=== PATIENT | female | born 1940 | race Caucasian/White ===

== ENCOUNTER 2019-06-17 08:18 | Inpatient (IN) | payer OTHER ==
[2019-06-17 09:05] LABS: Absolute Lymphocytes (CBC) 0.8 K/uL (0.7-4.9); Basophils % 0.3 % (0-1.3); Hematocrit 38.8 % (36.0-45.0); Lymphocytes % 7.7 % (15.3-44.8); MPV 9.6 fL (7.6-11.3); Protime INR 0.91; RBC Red Blood Cell Count 4.67 M/uL (3.86-4.86)
[2019-06-17 09:22] LABS: ALT/SGPT 24 U/L (12-78); AST/SGOT 24 U/L (15-37); Albumin 3.4 g/dL (3.4-5.0); Alkaline Phosphatase 105 U/L (45-117); BUN Blood Urea Nitrogen 21 mg/dL (7-18); Bicarbonate 27 mmol/L (21-32); Bilirubin Direct 0.1 mg/dL (0-0.2); Bilirubin Total 0.3 mg/dL (0.2-1.0); Glucose Level 109 mg/dL (74-106); NT PRO-BNP 9475 pg/mL (<450); Protein, Total 7.1 g/dL (6.4-8.2); Sodium Level 138 mmol/L (136-145); Troponin (Emerg Dept Use Only) < 0.02 ng/mL (0.0-0.045)
--- NOTE | 2019-06-17 09:38 | RAD REPORT ---
EXAM DESCRIPTION: RAD - Chest Single View - 06/17/2019 9:32 am CLINICAL HISTORY: DYSPNEA Chest pain. COMPARISON: Chest Pa And Lat (2 Views) dated 10/09/2017 FINDINGS: Portable technique limits examination quality. Mild bilateral pulmonary opacities are present, which may represent interstitial pneumonitis or inter stitial pulmonary edema. The heart is mildly enlarged in size. No displaced fractures.
[2019-06-17] MEDS ORDERED: LORazepam 2 MG/ML VIAL ONE (09:54)
[2019-06-17] MEDS ORDERED: FUROSEMIDE 40 MG/4 ML VIAL ONE (09:59)
[2019-06-17] MEDS ORDERED: ONDANSETRON 4 MG/2 ML VIAL ONE (09:59)
--- NOTE | 2019-06-17 10:23 | ER ---
Nurse's Notes [facility] Name: Shanell Cisse Age: 78 yrs Sex: Female : 1940 Arrival Date: 06/17/2019 Time: 08:19 Bed 6 Private MD: Diagnosis: Dyspnea;Pulmonary edema Presentation: 06/16 08:20 Chief complaint: EMS states: COUGH AND SHORTNESS OF BREATH, PER EMS PT AT HOME WITH bp COVID POSITIVE PATIENT ON HOME QUARANTINE PER PT, SHE LIVES ALONE AND HAS HAD NO CONTACT WITH COVID + PERSONS. Coronavirus screen: Surgical mask placed on patient. Patient moved to private room, placed in contact and droplet isolation with eye protection until further assessment. Patient reports a cough. Patient reports shortness of breath or difficulty breathing. Patient denies measured and/or subjective temperature greater than 100.4F prior to today's visit. Patient denies travel on a cruise ship or to a country the [facility] currently lists as an affected area. Patient denies contact with known and/or suspected case of COVID-19. Ebola Screen: No symptoms or risks identified at this time. Initial Sepsis Screen: Does the patient meet any 2 criteria? No. Patient's initial sepsis screen is negative. Does the patient have a suspected source of infection? No. Patient's initial sepsis screen is negative. Risk Assessment: Do you want to hurt yourself or someone else? Patient reports no desire to harm self or others. Onset of symptoms is unknown. 08:20 Method Of Arrival: EMS: [facility] bp 08:20 Acuity: CHRISTIANO 3 bp 08:20 Care prior to arrival: IV initiated. 20 GA, in the left forearm, Glucose check: 134 bp Oxygen administered. via nasal cannula. Triage Assessment: 08:23 General: Appears in no apparent distress. comfortable, Behavior is cooperative, bp appropriate for age, anxious. Pain: Denies pain. EENT: No deficits noted. Neuro: No deficits noted. Cardiovascular: No deficits noted. Respiratory: Reports shortness of breath cough that is non-productive, Onset: The symptoms/episode began/occurred yesterday, the patient has mild shortness of breath. GI: No signs and/or symptoms were reported involving the gastrointestinal system. : No signs and/or symptoms were reported regarding the genitourinary system. Derm: No deficits noted. Musculoskeletal: No deficits noted. Historical: - Allergies: 08:23 No Known Allergies; bp - Home Meds: 08:23 Toprol XL Oral [Active]; Amitriptyline Oral [Active]; bp - PMHx: 08:23 Hypertension; bp - Immunization history:: Adult Immunizations up to date. - Social history:: Smoking status: unknown. Screenin:24 Abuse screen: Denies threats or abuse. Denies injuries from another. Nutritional bp screening: No deficits noted. Tuberculosis screening: No symptoms or risk factors identified. Fall Risk None identified. Assessment: 08:24 General: SEE TRIAGE NOTE. Cardiovascular: Rhythm is sinus rhythm. Respiratory: Airway bp is patent Respiratory effort is even, labored, Respiratory pattern is symmetrical, Breath sounds are diminished bilaterally. 08:40 Reassessment: Assisted to bedside commode, pt voided. Pt assisted back in bed. . aa5 09:00 Reassessment: Patient is alert, oriented x 3, equal unlabored respirations, skin aa5 warm/dry/pink. Pt notified of wait time for lab results. . 09:26 Reassessment: CXR COMPLETED, U/S PENDING. PT OUT OF BED TO B/S COMMODE. bp 09:40 Reassessment: Pt to bedside commode. . aa5 09:45 Reassessment: Pt sitting at side of bed, c/o increased SOB, respirations are tachypnea, aa5 RR 26. Pt also reports anxiety, SNUBBER notified. . 10:00 Reassessment: Provided verbal reassurance and instructed pt to take deep breaths. Pt aa5 appears more calm after Ativan administration. . 10:05 Reassessment: Pt now calm, resting in bed with eyes closed, respirations even and aa5 unlabored. Side rails x 2, call denise within reach. . 10:55 Reassessment: Patient is alert, oriented x 3, equal unlabored respirations, skin aa5 warm/dry/pink. Pt assisted to bedside commode. . 11:05 Reassessment: Pt assisted back in bed by [employer]. US being completed at bedside. aa5 11:50 Reassessment: Patient is alert, oriented x 3, equal unlabored respirations, skin aa5 warm/dry/pink. Pt assisted with bedside commode, pt voided. . Vital Signs: 08:19 BP 184 / 98; Pulse 80; Resp 20 S; Pulse Ox 93% on R/A; aa5 08:20 Temp 98.1(O); Pulse Ox 100% on 2 lpm NC; Weight 65.32 kg; Height 5 ft. 6 in. (167.64 aa5 cm); 09:25 BP 189 / 106; Pulse 92; Resp 25; Pulse Ox 98% ; bp 10:00 BP 179 / 83; Pulse 80; Resp 16 S; Pulse Ox 96% on 2 lpm NC; aa5 11:30 BP 189 / 102; Pulse 83; Resp 18 S; Temp 98.0(TE); Pulse Ox 98% on 2 lpm NC; aa5 11:55 BP 180 / 99; Pulse 80; Resp 16 S; Pulse Ox 98% on 2 lpm NC; aa5 08:20 Body Mass Index 23.24 (65.32 kg, 167.64 cm) aa5 11:30 SNUBBER notified of increased BP aa5 ED Course: 08:19 Patient arrived in ED. bp 08:22 Triage completed. bp 08:22 Selina Sanchez FNP-C is PHCP. kb 08:22 Arvin Russell MD is Attending Physician. kb 08:23 Arm band placed on. bp 08:24 Patient has correct armband on for positive identification. Bed in low position. Call bp light in reach. Side rails up X2. 08:24 Maintain EMS IV. Dressing intact. Good blood return noted. Site clean \T\ dry. Gauge \T\ bp site: 20 G LEFT FA. 08:25 EKG done, by location and measurement technician. reviewed by Selina LANCASTER. vh 08:26 Anhsul Carter, RN is Primary Nurse. bp 08:43 Initial lab(s) drawn, by ms, sent to lab. Inserted saline lock: 20 gauge in right aa5 wrist, using aseptic technique. Blood collected. 08:49 COVID-19 swab collected and sent to lab. aa5 09:33 XRAY Chest (1 view) In Process Unspecified. EDMS 10:22 Slade Grimes DO is Hospitalizing Provider. kb 11:55 No provider procedures requiring assistance completed. Patient admitted, IV remains in aa5 place. 12:04 Primary Nurse role handed off by Anshul Carter, RN aa5 Administered Medications: 09:50 Drug: Ativan 0.25 mg Route: IVP; Site: right forearm; bp 10:05 Follow up: Response: No adverse reaction; Marked relief of symptoms aa5 09:55 Drug: Lasix 40 mg Route: IVP; Site: right forearm; bp 10:05 Follow up: Response: No adverse reaction aa5 09:55 Drug: Zofran (Ondansetron) 4 mg Route: IVP; Site: right forearm; bp 10:05 Follow up: Response: No adverse reaction aa5 11:45 Drug: Lopressor 5 mg {Note: VO received at 1143.} Route: IVP; Site: right wrist; aa5 12:00 Follow up: Response: No adverse reaction aa5 Outcome: 10:22 Decision to Hospitalize by Provider. kb 11:59 Admitted to Med/surg accompanied by nurse, via wheelchair, with chart, Other Bedside aa5 report given to CLAUDE Salcido 11:59 Condition: stable 11:59 Instructed on the need for admit, Demonstrated understanding of instructions. 12:03 Patient left the ED. aa5 Signatures: Dispatcher [employer] EDMS Selina Sanchez, JANNIE-C CHILD GUIDANCE COUNSELOR-Keyona Johnston, RN RN aa5 Marian Sharpe Brian, RN RN bp Corrections: (The following items were deleted from the chart) 08:31 08:20 BP 184 / 98; Pulse 80bpm; Resp 20bpm; Spontaneous; Pulse Ox 93% RA; aa5 aa5 08:32 08:20 Pulse Ox 100% 4 lpm; Temp 97.9F; 65.32 kg; Height 5 ft. 6 in.; BMI: 23.2; bp aa5 11:08 08:20 Coronavirus screen: Surgical mask placed on patient. Patient moved to private aa5 room, placed in contact and droplet isolation with eye protection until further assessment. Patient reports a cough. Patient reports shortness of breath or difficulty breathing. Patient denies measured and/or subjective temperature greater than 100.4F prior to today's visit. Patient reports contact with known and/or suspected case of COVID-19. bp 11:41 08:20 Chief complaint: EMS states: COUGH AND SHORTNESS OF BREATH, AT HOME WITH COVID bp POSITIVE bp 12:08 12:07 Patient left the ED. aa5 aa5
--- NOTE | 2019-06-17 10:23 | EDPHYS ---
Physician Documentation [facility] Name: Shanell Cisse Age: 78 yrs Sex: Female : 1940 Arrival Date: 06/17/2019 Time: 08:19 Bed 6 Private MD: ED Physician Arvin Russell HPI: 06/16 08:52 This 78 yrs old Female presents to ER via EMS with complaints of Shortness Of kb Breath, Cough. 08:52 The patient has shortness of breath at rest. Onset: The symptoms/episode began/occurred kb last night. Duration: The symptoms are continuous. The patient's shortness of breath is aggravated by nothing, is alleviated by nothing. Associated signs and symptoms: Pertinent positives: non-productive cough, Pertinent negatives: chest pain, fever. Severity of symptoms: At their worst the symptoms were moderate in the emergency department the symptoms have improved mildly. The patient has not experienced similar symptoms in the past. The patient has not recently seen a physician. Pt reports she started having shortness of breath last night, then coughed through most of the night. Denies fever or sick contacts. . Historical: - Allergies: 08:23 No Known Allergies; bp - Home Meds: 08:23 Toprol XL Oral [Active]; Amitriptyline Oral [Active]; bp - PMHx: 08:23 Hypertension; bp - Immunization history:: Adult Immunizations up to date. - Social history:: Smoking status: unknown. ROS: 08:51 Constitutional: Negative for fever, chills, and weight loss, ENT: Negative for injury, kb pain, and discharge, Neck: Negative for injury, pain, and swelling, Cardiovascular: Negative for chest pain, palpitations, and edema, Abdomen/GI: Negative for abdominal pain, nausea, vomiting, diarrhea, and constipation, Back: Negative for injury and pain, MS/Extremity: Negative for injury and deformity, Skin: Negative for injury, rash, and discoloration, Neuro: Negative for headache, weakness, numbness, tingling, and seizure. 08:51 Respiratory: Positive for cough, shortness of breath, Negative for dyspnea on exertion, hemoptysis, orthopnea, pleurisy, sputum production, wheezing. Exam: 08:51 Constitutional: This is a well developed, well nourished patient who is awake, alert, kb and in no acute distress. Head/Face: Normocephalic, atraumatic. ENT: Nares patent. No nasal discharge, no septal abnormalities noted. Tympanic membranes are normal and external auditory canals are clear. Oropharynx with no redness, swelling, or masses, exudates, or evidence of obstruction, uvula midline. Mucous membranes moist. Neck: Trachea midline, no thyromegaly or masses palpated, and no cervical lymphadenopathy. Supple, full range of motion without nuchal rigidity, or vertebral point tenderness. No Meningismus. Chest/axilla: Normal chest wall appearance and motion. Nontender with no deformity. No lesions are appreciated. Respiratory: Lungs have equal breath sounds bilaterally, clear to auscultation and percussion. No rales, rhonchi or wheezes noted. No increased work of breathing, no retractions or nasal flaring. Abdomen/GI: Soft, non-tender, with normal bowel sounds. No distension or tympany. No guarding or rebound. No evidence of tenderness throughout. Back: No spinal tenderness. No costovertebral tenderness. Full range of motion. Skin: Warm, dry with normal turgor. Normal color with no rashes, no lesions, and no evidence of cellulitis. MS/ Extremity: Pulses equal, no cyanosis. Neurovascular intact. Full, normal range of motion. Neuro: Awake and alert, GCS 15, oriented to person, place, time, and situation. Cranial nerves II-XII grossly intact. Motor strength 5/5 in all extremities. Sensory grossly intact. Cerebellar exam normal. Normal gait. 08:51 Cardiovascular: Rate: normal, Rhythm: regular, Pulses: no pulse deficits are appreciated, Edema: pedal edema, that is mild. Vital Signs: 08:19 BP 184 / 98; Pulse 80; Resp 20 S; Pulse Ox 93% on R/A; aa5 08:20 Temp 98.1(O); Pulse Ox 100% on 2 lpm NC; Weight 65.32 kg; Height 5 ft. 6 in. (167.64 aa5 cm); 09:25 BP 189 / 106; Pulse 92; Resp 25; Pulse Ox 98% ; bp 10:00 BP 179 / 83; Pulse 80; Resp 16 S; Pulse Ox 96% on 2 lpm NC; aa5 11:30 BP 189 / 102; Pulse 83; Resp 18 S; Temp 98.0(TE); Pulse Ox 98% on 2 lpm NC; aa5 11:55 BP 180 / 99; Pulse 80; Resp 16 S; Pulse Ox 98% on 2 lpm NC; aa5 08:20 Body Mass Index 23.24 (65.32 kg, 167.64 cm) aa5 11:30 UPHOLSTERER INSIDE notified of increased BP aa5 MDM: 08:22 Patient medically screened. kb 08:51 Data reviewed: vital signs, nurses notes. Data interpreted: Pulse oximetry: on room air kb is 100 %. Interpretation: normal. 10:21 Counseling: I had a detailed discussion with the patient and/or guardian regarding: the kb historical points, exam findings, and any diagnostic results supporting the discharge/admit diagnosis, lab results, radiology results, the need for further work-up and treatment in the hospital. Physician consultation: Slade Grimes DO was contacted at 10:21, regarding admission, to the telemetry unit. patient's condition, and will see patient in ED, shortly. 06/16 08:32 Order name: Basic Metabolic Panel; Complete Time: 09:25 kb 06/16 08:32 Order name: CBC with Diff; Complete Time: 10:29 kb 06/16 08:32 Order name: LFT's; Complete Time: 09:25 kb 06/16 08:32 Order name: Magnesium; Complete Time: 09:25 kb 06/16 08:32 Order name: NT PRO-BNP; Complete Time: 09:25 kb 06/16 08:32 Order name: PT-INR; Complete Time: 09:14 kb 06/16 08:32 Order name: Troponin (emerg Dept Use Only); Complete Time: 09:25 kb 06/16 08:32 Order name: XRAY Chest (1 view); Complete Time: 09:40 kb 06/16 08:32 Order name: COVID-19; Complete Time: 10:31 kb 06/16 08:32 Order name: US Extremity Venous W Compression Kevon kb 06/16 09:41 Order name: Echo w/ Doppler kb 06/16 10:25 Order name: CBC Smear Scan; Complete Time: 10:29 EDMS 06/16 08:32 Order name: EKG; Complete Time: 08:33 kb 06/16 08:32 Order name: Cardiac monitoring; Complete Time: 08:36 kb 06/16 08:32 Order name: EKG - Nurse/Tech; Complete Time: 08:36 kb 06/16 08:32 Order name: IV Saline Lock; Complete Time: 08:37 kb 06/16 08:32 Order name: Labs collected and sent; Complete Time: 09:04 kb 06/16 08:32 Order name: O2 Per Protocol; Complete Time: 08:37 kb 06/16 08:32 Order name: O2 Sat Monitoring; Complete Time: 08:37 kb Administered Medications: 09:50 Drug: Ativan 0.25 mg Route: IVP; Site: right forearm; bp 10:05 Follow up: Response: No adverse reaction; Marked relief of symptoms aa5 09:55 Drug: Lasix 40 mg Route: IVP; Site: right forearm; bp 10:05 Follow up: Response: No adverse reaction aa5 09:55 Drug: Zofran (Ondansetron) 4 mg Route: IVP; Site: right forearm; bp 10:05 Follow up: Response: No adverse reaction aa5 11:45 Drug: Lopressor 5 mg {Note: VO received at 1143.} Route: IVP; Site: right wrist; aa5 12:00 Follow up: Response: No adverse reaction aa5 Disposition: 14:45 Co-signature as Attending Physician, Arvin Russell MD I agree with the assessment and kdr plan of care. Disposition: 06/17/19 10:22 Hospitalization ordered by Slade Grimes for Observation. Preliminary diagnosis are Dyspnea, Pulmonary edema. - Bed requested for Telemetry/MedSurg (observation). - Status is Observation. aa5 - Condition is Stable. - Problem is new. - Symptoms are unchanged. Signatures: Dispatcher [employer] EDMO Selina Sanchez, AIRPORT TOWER CONTROLLER-C AIRPORT TOWER CONTROLLER-Shelly Balderrama, RN Arvin Rosa MD MD [facility] Keyona Hughes RN RN aa Anshul Carter RN RN bp Corrections: (The following items were deleted from the chart) 10:22 10:22 Hospitalization Ordered by Slade Grimes DO for Observation. Preliminary kb diagnosis is New onset congestive heart failure; Dyspnea. Bed requested for Telemetry/MedSurg (observation). Status is Observation. Condition is Stable. Problem is new. Symptoms are unchanged. kb 11:29 10:22 06/17/2019 10:22 Hospitalization Ordered by Slade Grimes DO for Observation. dw Preliminary diagnosis is Dyspnea; Pulmonary edema. Bed requested for Telemetry/MedSurg (observation). Status is Observation. Condition is Stable. Problem is new. Symptoms are unchanged. kb 12:03 11:29 06/17/2019 10:22 Hospitalization Ordered by Slade Grimes DO for Observation. aa5 Preliminary diagnosis is Dyspnea; Pulmonary edema. Bed requested for Telemetry/MedSurg (observation). Status is Observation. Condition is Stable. Problem is new. Symptoms are unchanged. dw 12:07 12:03 06/17/2019 10:22 Hospitalization Ordered by Slade Grimes DO for Observation. aa5 Preliminary diagnosis is Dyspnea; Pulmonary edema. Bed requested for Telemetry/MedSurg (observation). Status is Observation. Condition is Stable. Problem is new. Symptoms are unchanged. aa5
[2019-06-17 10:25] LABS: Platelet Estimate ADEQ; Urine White Blood Cell Casts OK
[2019-06-17 10:26] LABS: Blood Morphology Comment NOT SEEN (NOT SEEN)
[2019-06-17] MEDS ORDERED: METOPROLOL TARTRATE 5 MG/5 ML INJ IV ONE (11:47)
[2019-06-17] MEDS ORDERED: AMITRIPTYLINE 10 MG TAB PO PRN (12:18)
--- NOTE | 2019-06-17 12:18 | RAD REPORT ---
EXAM DESCRIPTION: US - Extrem Venous W Compress Kevon - 06/17/2019 12:08 pm CLINICAL HISTORY: SWELLING Bilateral leg edema and swelling. COMPARISON: No comparisons TECHNIQUE: Real-time sonographic interrogation of the left and right lower extremity deep venous sys tems was performed. FINDINGS: Normal compressibility, flow augmentation, phasic flow and spontaneous flow is identified in both the left and right lower extremity deep venous systems. IMPRESSION: No sonographic evidence of left or right lower extremity deep venous thrombosis.
[2019-06-17] MEDS: ACETAMINOPHEN 500 MG TAB PO PRN (12:51)
[2019-06-17] MEDS: HYDRALAZINE HCL 20 MG/ML VIAL IV PRN ×2 (12:52→18:40)
--- NOTE | 2019-06-17 13:18 | P.HP ---
Certification for Inpatient Patient admitted to: Observation With expected LOS: <2 Midnights Patient will require the following post-hospital care: None Practitioner: I am a practitioner with admitting privileges, knowledge of patient current condition, hospital course, and medical plan of care. Services: Services provided to patient in accordance with Admission requirements found in Title 42 Section 412.3 of the Code of Federal Regulations Patient History Date of Service: 06/17/19 Primary Care Provider: Dr. Lua Reason for admission: Shortness of breath History of Present Illness: 78-year-old female with history of hypertension presented to the emergency room with shortness of breath. Patient has reported increasing shortness of breath over several days. She also reported some edema to. She denies any fever, chills, cough, or congestion. No sick contacts noted. Patient screen for COVID, negative. Patient came to the ER for further evaluation. In the ER patient was slightly hypertensive. Edema to the lower extremities were noted. Room-air saturations within normal range. White count 10.2, hemoglo bin 12.3. Platelet count 203. Sodium stable. BUN of 21, creatinine 1.06 with a GFR 50. Glucose 109. Chest x-ray showed pulmonary edema. Venous Doppler lower extremities were negative. Patient given IV Lasix. Patient admitted for further evaluation and observation. When I saw the patient ER, she appeared stable. Patient denies history of CHF. Allergies No Known Allergies Allergy (Unverified 06/17/19 12:17) Home medications list reviewed: Yes - Past Medical/Surgical History Diabetic: No -: Hypertension Past Surgical History: Reviewed- Non-Contributory Psychosocial/ Personal History: Patient lives at home - Family History Family History: Reviewed- Non-Contributory - Social History Smoking Status: Never smoker Alcohol use: No CD- Drugs: No Caffeine use: No Place of Residence: Home Review of Systems General: As per HPI Eyes: Unremarkable Respiratory: Shortness of Breath, As per HPI Cardiovascular: Edema, As per HPI Gastrointestinal: Unremarkable Genitourinary: Unremarkable Musculoskeletal: Pedal edema, As per HPI Integumentary: Unremarkable Neurological: Unremarkable Lymphatics: Unremarkable Physical Examination - Vital Signs Temperature: 97.6 F Blood Pressure: 198/104 Pulse: 75 Respirations: 20 - Physical Exam General: Alert, In no apparent distress, Oriented x3, Cooperative HEENT: Atraumatic, Normocephalic, Mucous membr. moist/pink Neck: Supple Respiratory: Crackles/rales (Crackles to the bases) Cardiovascular: Normal pulses, Regular rate/rhythm Gastrointestinal: Normal bowel sounds, Soft and benign, Non-distended, No tenderness, No masses, No rebound, No guarding Musculoskeletal: No tenderness, No warmth Integumentary: Tenderness/swelling (1+ pitting edema to the lower extremities bilateral) Neurological: Normal speech, Normal strength at 5/5 x4 extr, Normal tone, Normal affect - Studies Laboratory Data (last 24 hrs) 06/17/19 08:49: PT 10.8, INR 0.91 06/17/19 08:49: WBC 10.2, Hgb 12.3, Hct 38.8, Plt Count 203 06/17/19 08:49: Sodium 138, Potassium 4.0, BUN 21 H, Creatinine 1.06, Glucose 109 H, Magnesium 2.0, Total Bilirubin 0.3, AST 24, ALT 24, Alkaline Phosphatase 105 Microbiology Data (last 24 hrs): 06/17/19 08:53 Nasopharnyx Coronavirus COVID-19 PCR - Final Assessment and Plan - Plan Impression: Shortness of breath with edema to the lower extremity suspect acute on chronic systolic CHF Hypertension Plan: Shortness of breath with edema to the lower extremity suspect acute on chronic systolic CHF: Patient will be admitted for further evaluation and observation. Will continue telemetry. Will monitor cardiac enzymes. Will obtain echocardiogram to evaluate for CHF. Will continue with 1500 cc per day fluid restriction and low-salt diet. Will consult cardiology for further recommendation. Will continue with IV Lasix and diuresis. DVT prophylaxis in place. Will check tsh, BMP and fasting lipid panel in the morning. Will continue to reassess. Will wean off oxygen. Anticipate improvement over the next 24 hr. Will make further adjustments in medication. Hypertension: Will start medication. Will verify home medication. Further adjustment may be required. Discharge Plan: Home Plan to discharge in: 24 Hours - Advance Directives Does patient have a Living Will: No Does patient have a Durable POA for Healthcare: No - Code Status/Comfort Care Code Status Assessed: Yes (Patient is full code) Time Spent Managing Pts Care (In Minutes): 55
[2019-06-17] MEDS ORDERED: METOPROLOL TARTRATE 5 MG/5 ML INJ IV STA (13:28)
[2019-06-17] MEDS ORDERED: HYDROCODONE/APAP 7.5/325 MG TAB PO PRN (13:33)
[2019-06-17] MEDS ORDERED: TRAMADOL HCL 50 MG TAB PO PRN (13:33)
[2019-06-17] MEDS: ONDANSETRON 4 MG/2 ML VIAL IV PRN (14:20)
--- NOTE | 2019-06-17 15:01 | RAD REPORT ---
EXAM DESCRIPTION: CT - Head Brain Wo Cont - 06/17/2019 2:44 pm CLINICAL HISTORY: Headache COMPARISON: None TECHNIQUE: Computed axial tomography of the head was obtained. IV contrast was not requested. All CT scans are performed using dose optimization technique as appropriate and may include automated exposure control or mA/KV adjustment according to patient size. FINDINGS: A 3.8 centimeter area of abnormal density is present within the left occipital lobe. It co ntains low and intermediate density areas. An intracranial bleed is not seen . The ventricles are normal in caliber. No extra-axial fluid collection is noted. Moderate low-density areas within periventricular, deep and subcortical white matter likely represent ischemic changes secondary to small vessel disease. Fluid within the sinuses/ mastoids is not seen. IMPRESSION: 3.8 centimeter area of abnormal density within at the left occipital lobe. This may repr esent a mass or atypical appearing infarction. MRI brain with contrast is recommended
[2019-06-17] MEDS ORDERED: LORazepam 2 MG/ML VIAL IV PRN (16:12)
[2019-06-17] MEDS ORDERED: LORazepam 2 MG/ML VIAL IV STA (16:15)
[2019-06-17] MEDS ORDERED: FUROSEMIDE 20 MG/ 2ML VIAL IV SCH (17:00)
[2019-06-17] MEDS: METOPROLOL TAR 50 MG TAB PO SCH (17:53)
[2019-06-17] MEDS ORDERED: METOPROLOL TAR 25 MG TAB PO SCH (18:00)
--- NOTE | 2019-06-17 18:02 | RAD REPORT ---
EXAM DESCRIPTION: MRI - Brain W/Wo Cont - 06/17/2019 5:11 pm CLINICAL HISTORY: cva COMPARISON: June 17, [address] TECHNIQUE: Axial, sagittal, and coronal magnetic images of the brain were obtained. 15 cc MultiHance administered intravenously FINDINGS: 4.5 centimeter area of abnormal signal is present within the left occipital lobe. It conta ins areas of low and high signal on T2 weighted sequences. It has low to intermediate signal on T1 we ighted sequences. Diffusion weighted sequences demonstrate areas of low and high signal. ADC mapping demonstrates mostly low signal. Mild serpiginous enhancement is noted. Symmetric increased signal is present within the thalami bilaterally. Increased signal is present wit hin basal ganglia bilaterally. Increased signal is present within the brainstem. Moderate signal within periventricular, deep and subcortical white matter The ventricles are normal caliber. No extra-axial fluid collection Fluid within the sinuses/mastoids is not seen IMPRESSION: 4.5 centimeter area of abnormal signal within the left occipital lobe may represent a co mbination of acute and subacute infarction with a small amount of late subacute blood. If the patient is Covid positive another consideration given the increased signal within the brainste m,thalami,, and basal ganglia is that this represents acute necrotizing encephalopathy
--- NOTE | 2019-06-17 18:31 | EKG ---
Test Date: 2019-06-17 Test Time: 08:22:49 Inside Steward/Stewardess: PAULINE MEASUREMENT RESULTS: Intervals: Rate: 80 TN: 176 QRSD: 116 QT: 428 QTc: 493 [place]: P: -7 TN: 176 QRS: 42 T: 193 INTERPRETIVE STATEMENTS: Normal sinus rhythm Left ventricular hypertrophy with QRS widening and repolarization abnormality Prolonged QT Abnormal ECG No previous ECG available for comparison Electronically Signed On 06-17-19 18:31:03 CDT by Blayne Hammer
[2019-06-17] MEDS: PROMETHAZINE INJ 25 MG/ML AMP IV PRN (18:40)
[2019-06-17 18:55] LABS: Urine Appearance CLEAR; Urine Bilirubin NEGATIVE (NEG); Urine Blood NEGATIVE (NEG); Urine Color YELLOW; Urine Glucose NEGATIVE (NEG); Urine Protein NEGATIVE (NEG); Urine Urobilinogen 0.2 mg/dL (0.2-1.0); Urine pH 7.5 (5.0-7.0)
[2019-06-17] MEDS: FAMOTIDINE 20 MG TAB PO SCH (19:56)
[2019-06-17] MEDS: ATORVASTATIN 40 MG TAB PO SCH (19:56)
[2019-06-17 19:57] LABS: Urine Bacteria 20-50 /HPF (<20); Urine Culture Reflex Order REFLEXED; Urine Microscopic Reflex ORDER UMIC; Urine Mucus 1+ /HPF (NONE SEEN); Urine RBC <5 /HPF (NONE SEEN)
[2019-06-17] MEDS: ENOXAPARIN 40 MG/0.4 ML SQ SCH (20:33)
[2019-06-17] MEDS ORDERED: levETIRAcetam 500 MG in NA CHLORIDE 0.9% 100 ML IV SCH (21:00)
[2019-06-18] MEDS: PROMETHAZINE INJ 25 MG/ML AMP IV PRN ×2 (00:32→04:23)
[2019-06-18 04:52] LABS: Absolute Lymphocytes (CBC) 0.8 K/uL (0.7-4.9); Basophils % 0.2 % (0-1.3); Hematocrit 41.7 % (36.0-45.0); MPV 10.1 fL (7.6-11.3)
[2019-06-18] MEDS: HYDRALAZINE HCL 20 MG/ML VIAL IV PRN (05:02)
[2019-06-18 05:37] LABS: BUN Blood Urea Nitrogen 18 mg/dL (7-18); Bicarbonate 32 mmol/L (21-32); Creatine Phosphokinase 70 U/L (26-192); Glucose Level 118 mg/dL (74-106); HDL Cholesterol 83 mg/dL (40-60); LDL Cholesterol, Calculated 141 (<130); Potassium 3.6 mmol/L (3.5-5.1); Sodium Level 136 mmol/L (136-145); Thyroid Stimulating Hormone 0.142 uIU/mL (0.360-3.740); Troponin I < 0.02 ng/mL (0.0-0.045)
[2019-06-18] MEDS: ONDANSETRON 4 MG/2 ML VIAL IV PRN (07:20)
[2019-06-18] MEDS: METOPROLOL TAR 50 MG TAB PO SCH ×2 (07:20→17:41)
--- NOTE | 2019-06-18 08:18 | P.PN ---
Subjective Date of Service: 06/18/19 Primary Care Provider: Dr. Lua Chief Complaint: Shortness of breath Subjective: Improving (still with some nausea) Physical Examination - Vital Signs Temperature: 98.2 F Blood Pressure: 174/90 Pulse: 82 Respirations: 18 Pulse Ox (%): 94 - Physical Exam General: Alert, In no apparent distress, Oriented x3, Cooperative HEENT: Atraumatic Neck: Supple Respiratory: Clear to auscultation bilaterally, Normal air movement Cardiovascular: Normal pulses, Regular rate/rhythm Gastrointestinal: Normal bowel sounds, Soft and benign, Non-distended, No tenderness, No masses, No rebound, No guarding Musculoskeletal: No erythema, No tenderness, No warmth Integumentary: No erythema, No warmth, No cyanosis Neurological: Normal speech, Normal strength at 5/5 x4 extr, Normal tone, Normal affect - Studies Laboratory Data (last 24 hrs) 06/17/19 08:49: PT 10.8, INR 0.91 06/17/19 08:49: WBC 10.2, Hgb 12.3, Hct 38.8, Plt Count 203 06/17/19 08:49: Sodium 138, Potassium 4.0, BUN 21 H, Creatinine 1.06, Glucose 109 H, Magnesium 2.0, Total Bilirubin 0.3, AST 24, ALT 24, Alkaline Phosphatase 105 Microbiology Data (last 24 hrs): 06/17/19 08:53 Nasopharnyx Coronavirus COVID-19 PCR - Final Medications List Reviewed: Yes Assessment & Plan Discharge Plan: Other (inpatient rehab) Plan to discharge in: 48 Hours Physician Review Additional Text: Impression: Shortness of breath with edema to the lower extremity suspect acute on chronic systolic CHF Nausea, dizziness, headache secondary to 4.5 cm abnormal signal within the left occipital lobe likely a combination of acute/subacute infarction with small amount of late subacute bleed Paroxysmally atrial fibrillation Hypertension Hyperlipidemia Abnormal tsh with possible hyperthyroidism Suspect chronic renal disease Plan: Shortness of breath with edema to the lower extremity suspect acute on chronic systolic CHF: Case discussed with cardiology. Await echocardiogram. Will hold Lasix at this time. Will continue 1500 cc per day fluid restriction. Patient also with acute/subacute infarct and late subacute bleed. Case discussed at length with cardiology and Neurology yesterday. Will have physical therapy/occupational therapy evaluate. Patient would benefit with inpatient rehab. Will pursue. Will continue to monitor and address. Patient on aspirin, DVT prophylaxis-Lovenox, Lipitor, and beta-audra for blood pressure control. Will slowly adjust blood pressure medication. Nausea, dizziness, headache secondary to 4.5 cm abnormal signal within the left occipital lobe likely a combination of acute/subacute infarction with small amount of late subacute bleed: Case discussed with Neurology and Cardiology. Will continue with aspirin, DVT prophylaxis-Lovenox, Lipitor and blood pressure control. This may be related to paroxysmally atrial fibrillation. Patient may require chronic anti coagulation therapy in the future. Will discuss further with Neurology. May require repeat CT scan in the future be for chronic anti coagulation therapy is considered. Paroxysmally atrial fibrillation: Continue with rate control [id number]. No chronic anti coagulation therapy at this time due to above. Will discuss further with Neurology. Hypertension: Continue with blood pressure control. Will slowly adjust medication. Hyperlipidemia: Now on Lipitor. Abnormal tsh with possible hyperthyroidism: May need to recheck lab in 2-4 weeks to confirm. If abnormal patient will need thyroid scan and endocrine evaluation as an outpatient. Suspect chronic renal disease: Will check renal ultrasound. Will need to adjust medications. Time Spent Managing Pts Care (In Minutes): 55
[2019-06-18] MEDS: ACETAMINOPHEN 500 MG TAB PO PRN ×2 (08:19→17:51)
[2019-06-18] MEDS: FOLIC ACID 1 MG TABLET PO SCH (08:20)
[2019-06-18] MEDS: ASPIRIN EC 81 MG TAB PO SCH (08:20)
[2019-06-18] MEDS: levETIRAcetam 500 MG TAB PO SCH ×2 (08:23→20:29)
[2019-06-18] MEDS: FAMOTIDINE 20 MG TAB PO SCH ×2 (08:23→20:29)
[2019-06-18] MEDS ORDERED: ENOXAPARIN 40 MG/0.4 ML SQ SCH (09:00)
--- NOTE | 2019-06-18 10:01 | CON ---
Date of Consultation: 06/18/[address] Grimes on 06/17/2019. I saw the patient on 06/18/2019. Reason For Consultation: Atrial fibrillation and CVA. History Of Present Illness: Ms. Cisse is a 78-year-old white woman. She has a history of hypertens ion. She was seen by Dr. Vernon in August 2018 for palpitations and dizziness. Echocardiogram and a 2 4-hour Holter was ordered, but she has not followed through. She comes into the hospital with multip le complaints including cough, hypertension, shortness of breath, was found to have a large stroke in the left occipital area by CT scan and MRI with acute and subacute possible hemorrhage. She has had intermittent atrial fibrillation since she has been in the hospital. She is now on aspirin, Lipitor , and Lovenox. Neurology is following her. She never had any chest pain or syncope. She denied any fever or chills. Has had some cough. Past Medical History: As stated above. Allergies: NONE. Review of Systems: Negative. Social History: Negative. Family History: Negative. Medications: At home include Elavil, metoprolol 100 b.i.d., Singulair, Myrbetriq, and candesartan wi th hydrochlorothiazide. Physical Examination: VITAL SIGNS: Her blood pressure is 174/90. HEENT: Negative. Neck: Supple without any bruit, lymphadenopathy, JVD, or thyromegaly. Chest: Clear to auscultation and percussion CARDIOVASCULAR: She was in a sinus rhythm when I saw her. Cardiac exam revealed a regular rhythm and rate. No murmurs, gallops, or rubs. Abdomen: Benign. Extremities: Revealed no clubbing, cyanosis, or edema. Diagnostic Data: Her BNP was 9475. EKG was normal. Venous Doppler was normal. MRI and CT of her he ad were listed earlier. Impression And Plan: Acute on subacute cerebrovascular accident, most likely secondary to atrial fib rillation. There is some evidence of possible hemorrhage. I think for now, we should hold oral anti coagulation. I think aspirin, Lovenox, and Lipitor are indicated for sure. She had an echocardiogra m and an EEG pending. Neurology has been consulted. We will decide on anticoagulation further down the road. It would be reasonable to do a carotid Doppler as well. Her blood pressure is poorly cont rolled with her atrial fibrillation, I think doubling her metoprolol dose is reasonable. Continue ca ndesartan with hydrochlorothiazide. So far, her atrial fibrillation has been paroxysmal and we will deal with that later. RAQUEL/ROCHELLE Voice ID: [id number] Report ID: [id number]
--- NOTE | 2019-06-18 11:00 | RAD REPORT ---
EXAM DESCRIPTION: RAD - Chest Pa And Lat (2 Views) - 06/18/2019 7:08 am CLINICAL HISTORY: Follow up CHF Chest pain. COMPARISON: Chest Single View dated 06/17/2019; Chest Pa And Lat (2 Views) dated 10/09/2017 FINDINGS: Mild improvement in pulmonary edema is seen. Small bilateral pleural effusions persist. Th e heart is upper limit normal in size. No displaced fractures. IMPRESSION: Mild improvement in lung aeration since comparative study.
--- NOTE | 2019-06-18 11:09 | RAD REPORT ---
EXAM DESCRIPTION: US - Renal Ultrasound-Complete - 06/18/2019 9:05 am CLINICAL HISTORY: Evaluate for chronic renal disease Flank pain COMPARISON: No comparisons FINDINGS: Both kidneys are mildly echogenic. The left kidney appears mildly atrophic relative to the right. The right kidney measures 9.6 x 5.0 x 3.9 cm. No hydronephrosis, focal mass or perinephric fluid. The left kidney measures 7.1 x 3.9 x 3.9 cm.. No hydronephrosis, focal mass or perinephric fluid. The urinary bladder is incompletely distended without gross abnormality seen. IMPRESSION: Mildly echogenic kidneys bilaterally compatible with medical renal disease.
--- NOTE | 2019-06-18 15:33 | EEG ---
CHART: [id number] TEST ID#: [id number] DATE OF STUDY: 06/18/2019 THE EEG WAS RECORDED PORTABLE IN THE PATIENT'S ROOM ON A 17 CHANNEL MACHINE. ELECTRODES WERE APPLIED IN THE USUAL MANNER USING THE INTERNATIONAL 10-20 SYSTEM. THE WAKING BACKGROUND RHYTHM IN THIS RECORD CONSISTS OF FAIRLY WELL DEVELOPED AND FAIRLY WELL ORGANIZED WAVES OF 8.5 HZ., EXPRESSED ON THE RIGHT AND POORLY EXPRESSED ON THE LEFT WHICH ATTENUATE NORMALLY WITH EYE OPENING. THE ACTIVITY IN THE LEFT HEMISPHERE IS DEPRESSED COMPARED TO HOMALOGOUS REGIONS IN THE RIGHT. LOW-VOLTAGE 18-22 HZ ACTIVITY IS EXPRESSED IN THE FRONTAL REGIONS. NO EPILEPTIFORM ACTIVITY APPEARS. SLEEP OCCURRED NATURALLY. IN ADDITION NORMAL SLEEP PATTERNS ARE PRESENT. HYPERVENTILATION WAS NOT PERFORMED. PHOTIC STIMULATION PRODUCED POOR DRIVING BILATERALLY. IMPRESSION: THIS IS A MODERATELY ABNORMAL EEG DUE TO DEPRESSED AMPLITUDE AND FREQUENCIES IN THE LEFT VERSUS THE RIGHT POSTERIOR REGIONS. THIS FINDING IS CONSISTENT WITH A DESTRUCTIVE LESION IN THE LEFT POSTERIOR HEMISPHERE. NO EPILEPTIFORM ACTIVITY WAS RECORDED.
--- NOTE | 2019-06-18 17:33 | EKG ---
Test Date: 2019-06-17 Test Time: 14:25:39 Supplier Development Manager: PAULINE MEASUREMENT RESULTS: Intervals: Rate: 78 [place]: 178 QRSD: 114 QT: 468 QTc: 533 [place]: P: 52 OH: 178 QRS: 12 T: 260 INTERPRETIVE STATEMENTS: Normal sinus rhythm with sinus arrhythmia Incomplete left bundle branch block Left ventricular hypertrophy with repolarization abnormality Prolonged QT Abnormal ECG Compared to ECG 06/17/2019 08:22:49 Left bundle-branch block now present Electronically Signed On 06-18-19 17:31:52 CDT by Blayne Hammer
[2019-06-18] MEDS: ENOXAPARIN 40 MG/0.4 ML SQ SCH (17:41)
[2019-06-18] MEDS ORDERED: AMLODIPINE 5 MG TAB PO ONE (20:28)
[2019-06-18] MEDS: ATORVASTATIN 40 MG TAB PO SCH (20:29)
--- NOTE | 2019-06-18 20:41 | P.PN ---
Date of Service: 06/18/19 Pts daughter Eloisa, , is MPOA. She is requesting no other information to be shared with anyone else besides her. She will bring paperwork tomorrow, but will need someone to meet her downstairs. She doesn't use the house phone hardly at all. She is requesting inpatient rehab. Her mother's is a full code. Did advise we may need other testing to evaluate her circulatory status depending on Neurology recommendations. Spoke with Dr. Cai and recommended CT angio. If patient has increase intracerebral pressure he may need IV steroids.
--- NOTE | 2019-06-18 22:06 | CON ---
Reason For Consultation: Consultation called because of stroke. History Of Present Illness: Ms. Cisse is a 78-year-old right-handed patient with hyperten liya, who comes in to [facility] with perhaps 1 or more days of some cough, shortness of sienna ath, and subjective fever. The patient was also confused and disoriented. She was evaluated for COV ID-19 and studies were actually sent off, which subsequently come back negative for RT-PCR. MRI of t he brain did identify a 4.5 cm left occipital acute to subacute stroke with late subacute blood ident ified. Given the nature of the possibility of irritation in that region and the possibility of seizu res, patient was placed on Keppra 500 mg twice daily. Earlier today before my evaluation, she did re ceive Phenergan for nausea and is somewhat sedated at this point. Her urinalysis on admission was po sitive for nitrites, esterase, and bacteria were 20 to 50 consistent with a urinary tract infection. Her urinalysis did grow greater than 100,000 colony-forming units of 4+ gram-negative rods of which sensitivity is pending, but she has not yet received antibiotics. She is admitted to the floor for a dditional stroke workup and treatment of possible urinary tract infection. Past Medical History: As indicated. Allergies: NO KNOWN DRUG ALLERGIES. Medications: At home, Toprol-XL and amitriptyline. Family History: Noncontributory. Social History: The patient currently lives alone. Had no contacts for folks positive for le vi forrest or at least unknowingly and was independent prior to coming into the hospital. Review of Systems: She is very sedated, sleepy, and is awake to say 1 or 2 words and not able to give a good review of s ystems. Physical Examination: Vital Signs: Blood pressure 150/90, pulse 73, respiratory rate 18, temperature 98.1, oxygen saturati on 98% on room air. Weight 144 pounds, height 5 feet 6 inches, BMI 23.2. General: Ms. Cisse is resting comfortably. She is somewhat sleepy, but arousable and will follow s imple commands with repeated encouragement. Chest: She is clear to auscultation. Heart: At this point, regular. Extremities: Show no significant edema, cyanosis, or clubbing. Abdomen: Soft. Neurological: She does alert to her name and smiles appropriately. She, however, is sedated and eas belle closed her eyes and had to be stimulated to remain awake and she did receive some Phenergan earli er. Cranial nerve examination appeared to show a decrease to visual threat response in the right vis ual field. Otherwise, difficult to fully assess extraocular movements, but they do not. She does no t have a dysconjugate gaze. Her face is symmetric. Unable to fully assess sensation and for midline structures such as tongue and palate appear to be midline on the motor. She does not have an obviou s focal loss of strength to 1 side compared to the other in the arms and legs. She moves them equall y well and she responds sensation equally well on both sides. Unable to fully assess coordination. She has symmetric reflexes and gait may be attempted once the patient is more alert. Laboratory Studies: Complete blood count with differential is essentially unremarkable except neutro phils elevated at 86 with white count normal at 8.9. MCV is slightly low at 26.2. INR normal at 0.9 1. Chemistries show slightly elevated glucose ranging 109 to 118, otherwise unremarkable. Liver fun ction studies were normal. LDL cholesterol elevated at 141, total cholesterol elevated 241, HDL chol esterol is increased to 83. TSH is very low at 0.142 and free T4 is elevated to 1.58. Urinalysis po sitive nitrites, trace esterase, 20 to 50 bacteria, 5 to 10 white blood cells, pH 7.5 and she is COVI D-19 negative. Renal ultrasound shows mild echogenic kidneys bilaterally compatible with medical greer al disease. Her electroencephalogram shows a moderately abnormal study due to depressed apertures an d frequencies in the left versus right posterior regions consistent with a destructive lesion in the left hemisphere in the posterior regions. Venous extremity Doppler showed no sonographic evidence of left or right deep venous thrombosis and electrocardiogram shows normal sinus rhythm with left ventr icular hypertrophy. QRS widening and repolarization abnormalities. There was prolonged QT. Assessment: Ms. 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 There is as well an aphasic component to stroke. She does have a urinary tract infection and hyperthyroidism likely undiagnosed and untrea nadiya. It is likely that there is a combination of conditions producing her altered mental status. Th e possibility of seizure should encounter to given the location of her stroke and the occurrence of b lood and being so acute. Plan: 1.Continue Keppra 500 mg twice daily. 2.Aspirin 81 mg daily. 3.She will probably require an evaluation of her thyroid function by Endocrinology and primary care physicians. 4.Lipitor 40 mg at bedtime. 5.Aspirin 81 mg daily. 6.Folate 1 mg daily. 7.She once more alert, may be evaluated by Physical Therapy for possible admission to the inpatient rehabilitation to help her regain her functional status following stroke. 8.She may require antibiotic treatment of her urinary tract infection once cultures are back. GRAEME/ROCHELLE Voice ID: [id number] Report ID: [id number]
[2019-06-19] MEDS: HYDRALAZINE HCL 20 MG/ML VIAL IV PRN (01:37)
[2019-06-19] MEDS: ACETAMINOPHEN 500 MG TAB PO PRN (02:22)
[2019-06-19] MEDS: ONDANSETRON 4 MG/2 ML VIAL IV PRN (02:23)
[2019-06-19] MEDS ORDERED: NA CHLORIDE 0.9% 1,000 ML IV SCH (06:00)
[2019-06-19] MEDS ORDERED: CEFTRIAXONE/SWI 1gm 1 GM/10 ML SYR IV ONE (06:00)
[2019-06-19 06:16] LABS: CKMB Creatine Kinase MB 2.3 ng/mL (0.3-3.6); Potassium 3.3 mmol/L (3.5-5.1); Troponin I 0.02 ng/mL (0.0-0.045)
[2019-06-19] MEDS: METOPROLOL TAR 50 MG TAB PO SCH ×2 (06:25→16:34)
[2019-06-19] MEDS: ASPIRIN EC 81 MG TAB PO SCH ×2 (08:31→12:08)
[2019-06-19] MEDS: levETIRAcetam 500 MG TAB PO SCH ×3 (08:32→20:46)
[2019-06-19] MEDS: FOLIC ACID 1 MG TABLET PO SCH ×2 (08:32→12:08)
[2019-06-19] MEDS: FAMOTIDINE 20 MG TAB PO SCH ×3 (08:36→20:45)
[2019-06-19] MEDS ORDERED: AMLODIPINE 5 MG TAB PO SCH (09:00)
--- NOTE | 2019-06-19 09:20 | ECHO ---
HEIGHT: 5 ft 6 in WEIGHT: 144 lb 0 oz DATE OF STUDY: 06/18/[address]: Selina Sanchez 2-DIMENSIONAL: YES M.MODE: YES DOPPLER: YES COLOR FLOW: YES TDS: NO PORTABLE: NO DEFINITY: NO BUBBLE STUDY: NO DIAGNOSIS: CONGESTIVE HEART FAILURE CARDIAC HISTORY: CATHERIZATION: NO SURGERY: NO PROSTHETIC VALVE: NO PACEMAKER: NO MEASUREMENTS (cm) DIASTOLIC (NORMALS) SYSTOLIC (NORMALS) IVSd 1.0 (0.6-1.2) LA Diam 3.7 (1.9-4.0) LVEF 30% LVIDd 4.2 (3.5-5.7) LVIDs 3.6 (2.0-3.5) %FS 14% LVPWd 1.1 (0.6-1.2) Ao Diam 2.4 (2.0-3.7) 2 DIMENSIONAL ASSESSMENT: RIGHT ATRIUM: NORMAL LEFT ATRIUM: NORMAL RIGHT VENTRICLE: NORMAL LEFT VENTRICLE: NORMAL TRICUSPID VALVE: NORMAL MITRAL VALVE: MITRAL ANNULAR CALCIFICATION PULMONIC VALVE: NORMAL AORTIC VALVE: SCLEROSIS PERICARDIAL EFFUSION: NONE AORTIC ROOT: NORMAL LEFT VENTRICULAR WALL MOTION: SEVERE GLOBAL HYPOKINESIS. DOPPLER/COLOR FLOW: MILD TRICUSPID REGURGITATION. COMMENTS: SEVERE GLOBAL HYPOKINESIS WITH LEFT VENTRICULAR EJECTION FRACTION 30%. ACUTE SYSTOLIC CONGESTIVE HEART FAILURE. MITRAL ANNULAR CALCIFICATION. AORTIC SCLEROSIS WITH NO STENOSIS. TECHNOLOGIST: Clemencia SEWELL
--- NOTE | 2019-06-19 09:58 | RAD REPORT ---
EXAM DESCRIPTION: CTHead angio06/19/2019 8:29 am CLINICAL HISTORY: CVA COMPARISON: None TECHNIQUE: CT angiogram of the head was obtained. 3D MIPS reconstruction performed. All CT scans are performed using dose optimization technique as appropriate and may include automated exposure control or mA/KV adjustment according to patient size. FINDINGS: The basilar, internal carotid, anterior cerebral, middle cerebral and posterior cerebral a rteries are normal caliber. An aneurysm is not seen. A significant stenosis is not noted. IMPRESSION: Unremarkable CT angiogram head.
--- NOTE | 2019-06-19 10:34 | PN ---
Date of Progress Note: 06/19/2019 Ms. Cisse came in with a CVA, atrial fibrillation, and hypertension. Echocardiogram that was done y esterday showed new onset acute systolic congestive heart failure with an ejection fraction of 30%. Neurology had seen Ms. Cisse and recommended Keppra, aspirin, rehabilitation, treatment of her UTI a nd checking her thyroid function, which are pending. Her blood pressure today is 193/86. She is sli ghtly confused. She is in sinus rhythm. Her blood pressure needs to be adjusted and I think conside ring her ejection fraction of 30%, I would recommend an JIGAR inhibitor or an ARB along with her Norvas c and metoprolol. We will have to follow up on her ejection fraction in the near future as an outpat ient. If she recovers, she will probably need a stress test as well. I will continue to follow her. RAQUEL/ROCHELLE Voice ID: [id number] Report ID: [id number]
--- NOTE | 2019-06-19 13:46 | P.PN ---
Subjective Date of Service: 06/19/19 Primary Care Provider: Dr. Lua Chief Complaint: Shortness of breath Subjective: Other (Patient with confusion. No nausea noted this morning.) Physical Examination - Vital Signs Temperature: 98.5 F Blood Pressure: 180/78 Pulse: 77 Respirations: 17 Pulse Ox (%): 97 - Physical Exam General: Alert, Confused HEENT: Atraumatic Neck: Supple Respiratory: Clear to auscultation bilaterally, Normal air movement Cardiovascular: Normal pulses, Regular rate/rhythm Gastrointestinal: Normal bowel sounds, Soft and benign, Non-distended Neurological: Normal speech, Normal strength at 5/5 x4 extr, Normal tone - Studies Medications List Reviewed: Yes Assessment & Plan Discharge Plan: Other (Inpatient rehab) Plan to discharge in: 72 Hours Physician Review Additional Text: Impression: Shortness of breath with edema to the lower extremity suspect acute on chronic systolic CHF Nausea, dizziness, headache secondary to 4.5 cm abnormal signal within the left occipital lobe likely a combination of acute/subacute infarction with small amount of late subacute bleed Paroxysmally atrial fibrillation Hypertension Hyperlipidemia Abnormal tsh with possible hyperthyroidism Suspect chronic renal disease Plan: Shortness of breath with edema to the lower extremity suspect acute on chronic systolic CHF: Patient overall stable. Will hold Lasix at this time. Continue 1500 cc per day fluid restriction. Patient with acute/subacute infarct and late subacute bleed. Case discussed at length with cardiology and Neurology. Patient overall stable. Repeat CT scan unremarkable. Continue with aspirin and Plavix. Will discuss further about the possibility of chronic anti coagulation therapy in the future if she develops further chronic atrial fibrillation. Continue with speech, physical therapy. Will continue to reassess for rehab inpatient. Case discussed with her daughter who has medical power of regulatory attorney. Code status address in detail with the daughter. Patient is do not resuscitate. Nausea, dizziness, headache secondary to 4.5 cm abnormal signal within the left occipital lobe likely a combination of acute/subacute infarction with small amount of late subacute bleed: Overall stable. Continue current treatment at this time. Paroxysmally atrial fibrillation: Continue with rate control [id number]. No chronic anti coagulation therapy at this time due to above but likely in the future.. Will discuss further with Neurology. Hypertension: Continue with blood pressure control. Will slowly adjust medication. Hyperlipidemia: Now on Lipitor. Abnormal tsh with possible hyperthyroidism: May need to recheck lab in 2-4 weeks to confirm. If abnormal patient will need thyroid scan and endocrine evaluation as an outpatient. Suspect chronic renal disease: Will check renal ultrasound. Will need to adjust medications. Time Spent Managing Pts Care (In Minutes): 55
[2019-06-19] MEDS: ENOXAPARIN 40 MG/0.4 ML SQ SCH (16:08)
[2019-06-19] MEDS ORDERED: POTASSIUM 25 MEQ EFFERV TAB PO ONE (20:28)
[2019-06-19] MEDS: ATORVASTATIN 40 MG TAB PO SCH (20:46)
[2019-06-19] MEDS: lisinopriL 10 MG TAB PO SCH (20:46)
[2019-06-20 05:47] LABS: Absolute Lymphocytes (CBC) 1.4 K/uL (0.7-4.9); Basophils % 0.6 % (0-1.3); Hematocrit 38.8 % (36.0-45.0); Lymphocytes % 24.5 % (15.3-44.8); MPV 9.3 fL (7.6-11.3); RBC Red Blood Cell Count 4.74 M/uL (3.86-4.86)
[2019-06-20 05:58] LABS: Bilirubin Total 0.5 mg/dL (0.2-1.0); Magnesium 2.2 mg/dL (1.8-2.4); Phosphorus 2.3 mg/dL (2.5-4.9); Potassium 3.7 mmol/L (3.5-5.1); Protein, Total 6.6 g/dL (6.4-8.2)
[2019-06-20] MEDS ORDERED: CEFTRIAXONE/SWI 1gm 1 GM/10 ML SYR IV SCH (06:00)
[2019-06-20] MEDS: METOPROLOL TAR 50 MG TAB PO SCH ×2 (06:04→17:01)
[2019-06-20 06:07] LABS: BUN Blood Urea Nitrogen 21 mg/dL (7-18); Bicarbonate 32 mmol/L (21-32); CKMB Creatine Kinase MB 1.1 ng/mL (0.3-3.6); Creatine Phosphokinase 61 U/L (26-192); Glucose Level 102 mg/dL (74-106); Magnesium 2.2 mg/dL (1.8-2.4); Potassium 3.7 mmol/L (3.5-5.1); Sodium Level 137 mmol/L (136-145); Troponin I < 0.02 ng/mL (0.0-0.045)
[2019-06-20 06:13] VITALS: BMI 22.8
[2019-06-20] MEDS: ASPIRIN EC 81 MG TAB PO SCH (08:59)
[2019-06-20] MEDS: FOLIC ACID 1 MG TABLET PO SCH (08:59)
[2019-06-20] MEDS: levETIRAcetam 500 MG TAB PO SCH ×2 (08:59→20:55)
[2019-06-20] MEDS ORDERED: POTASSIUM CL SA 10 MEQ TAB PO ONE (09:00)
[2019-06-20] MEDS: FAMOTIDINE 20 MG TAB PO SCH ×2 (09:00→20:55)
--- NOTE | 2019-06-20 10:11 | P.PN ---
Subjective Date of Service: 06/20/19 Primary Care Provider: Dr. Lua Chief Complaint: Shortness of breath Subjective: Other (doing better. less confusion.) Physical Examination - Vital Signs Temperature: 97.8 F Blood Pressure: 159/74 Pulse: 60 Respirations: 18 Pulse Ox (%): 96 - Physical Exam General: Alert, Cooperative HEENT: Atraumatic Neck: Supple Respiratory: Clear to auscultation bilaterally, Normal air movement Cardiovascular: Normal pulses, Regular rate/rhythm Gastrointestinal: Normal bowel sounds, Soft and benign Integumentary: No tenderness/swelling, No erythema, No warmth, No cyanosis Neurological: Normal speech, Normal strength at 5/5 x4 extr, Normal tone - Studies Medications List Reviewed: Yes Assessment & Plan Discharge Plan: Other (Inpatient Rehab) Plan to discharge in: 48 Hours Physician Review Additional Text: Impression: Shortness of breath with edema to the lower extremity suspect acute on chronic systolic CHF Nausea, dizziness, headache secondary to 4.5 cm abnormal signal within the left occipital lobe likely a combination of acute/subacute infarction with small amount of late subacute bleed Paroxysmally atrial fibrillation Hypertension Hyperlipidemia Abnormal tsh with possible hyperthyroidism Suspect chronic renal disease stage 3 UTI-E. coli Plan: Shortness of breath with edema to the lower extremity suspect acute on chronic systolic CHF: Patient overall stable. Continue to hold Lasix at this time. Continue 1500 cc per day fluid restriction. Patient with acute/subacute infarct and late subacute bleed. Case discussed at length with cardiology and Neurology. Continue with aspirin, lipitor, folic acid and BP medication. Will discuss further about the possibility of chronic anti coagulation therapy in the future if she develops further chronic atrial fibrillation. Continue with speech, physical therapy in hope to approve for rehab inpatient. Case discussed with her daughter who has medical power of city attorney. Code status address in detail with the daughter. Patient is do not resuscitate. Nausea, dizziness, headache secondary to 4.5 cm abnormal signal within the left occipital lobe likely a combination of acute/subacute infarction with small amount of late subacute bleed: Overall improved. Continue current treatment at this time. Continue aspirin, Lipitor, folic acid and blood pressure medication. Patient also on Keppra. Neurology wants to continue Keppra for at least 1 month and then discontinue. Paroxysmally atrial fibrillation: Continue with rate control [id number]. No chronic anti coagulation therapy at this time due to above but likely in the future. Continue with ASA. Will discuss further with Neurology. Hypertension: Continue with blood pressure control. Added Lisinopril. Hyperlipidemia: Now on Lipitor. Abnormal tsh with possible hyperthyroidism: May need to recheck lab in 2-4 weeks to confirm. If abnormal patient will need thyroid scan and endocrine eval uation as an outpatient. Suspect chronic renal disease stage 3: Will need to adjust medications. UTI-E coli: Will pack changer to oral medication. Patient will need 7 day treatment. Time Spent Managing Pts Care (In Minutes): 55
[2019-06-20] MEDS: ACETAMINOPHEN 500 MG TAB PO PRN (13:48)
--- NOTE | 2019-06-20 16:03 | PN ---
Date of Progress Note: 06/20/2019 Ms. 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 She was noted to hav e atrial fibrillation. She also has a history of hypertension. Echocardiogram showed an ejection fr action of 30%. She is now on beta-blockers, JIGAR inhibitors, Norvasc, and Lasix. She appears to be s lightly dehydrated. I think her Lasix can be stopped. She is on Plavix, aspirin, Lipitor, and Keppr a. She is not a candidate for anticoagulation because of her bleed. She is being treated for UTI. TSH is normal. Her blood pressure is 150/87 and creatinine is 0.87. The plan is to continue present regimen and then go to rehab. She is in sinus rhythm now. I will stop seeing Ms. Cisse for now. I will be available for questions if the need arises. I will see her in the office as an outpatient. DO Voice ID: [id number] Report ID: [id number]
[2019-06-20] MEDS: ENOXAPARIN 40 MG/0.4 ML SQ SCH (17:01)
[2019-06-20] MEDS: ATORVASTATIN 40 MG TAB PO SCH (20:55)
[2019-06-20] MEDS: AMOX/K CLAV 500 MG TAB PO SCH (20:55)
[2019-06-20] MEDS: lisinopriL 10 MG TAB PO SCH (20:55)
[2019-06-21] MEDS: HYDRALAZINE HCL 20 MG/ML VIAL IV PRN (02:23)
[2019-06-21] MEDS: ACETAMINOPHEN 500 MG TAB PO PRN (02:32)
[2019-06-21] MEDS: METOPROLOL TAR 50 MG TAB PO SCH ×2 (05:09→16:54)
[2019-06-21] MEDS: ONDANSETRON 4 MG/2 ML VIAL IV PRN (05:14)
[2019-06-21 05:30] LABS: Potassium 3.6 mmol/L (3.5-5.1)
[2019-06-21] MEDS ORDERED: POTASSIUM CL SA 10 MEQ TAB PO ONE (09:00)
[2019-06-21] MEDS: FOLIC ACID 1 MG TABLET PO SCH (09:00)
[2019-06-21] MEDS: levETIRAcetam 500 MG TAB PO SCH ×2 (09:00→20:51)
[2019-06-21] MEDS: FAMOTIDINE 20 MG TAB PO SCH ×2 (09:02→20:51)
[2019-06-21] MEDS: AMOX/K CLAV 500 MG TAB PO SCH ×2 (09:02→20:51)
[2019-06-21] MEDS: ASPIRIN EC 81 MG TAB PO SCH (09:02)
--- NOTE | 2019-06-21 14:16 | P.PN ---
Subjective Date of Service: 06/21/19 Primary Care Provider: Dr. Lua Chief Complaint: Shortness of breath Subjective: Other (Less confusion noted today.) Physical Examination - Vital Signs Temperature: 98.4 F Blood Pressure: 168/64 Pulse: 81 Respirations: 18 Pulse Ox (%): 97 - Physical Exam General: Alert, Other (Less confusion noted) HEENT: Atraumatic Neck: Supple Respiratory: Clear to auscultation bilaterally, Normal air movement Cardiovascular: Normal pulses, Regular rate/rhythm Neurological: Normal speech, Normal strength at 5/5 x4 extr, Normal tone - Studies Medications List Reviewed: Yes Assessment & Plan Discharge Plan: Other (Inpatient rehab) Plan to discharge in: 24 Hours Physician Review Additional Text: Impression: Shortness of breath with edema to the lower extremity suspect acute on chronic systolic CHF Nausea, dizziness, headache secondary to 4.5 cm abnormal signal within the left occipital lobe likely a combination of acute/subacute infarction with small amount of late subacute bleed Paroxysmally atrial fibrillation Hypertension Hyperlipidemia Abnormal tsh with possible hyperthyroidism Suspect chronic renal disease stage 3 UTI-E. coli Plan: Shortness of breath with edema to the lower extremity suspect acute on chronic systolic CHF: Patient doing well overall. Continue off Lasix. Continue fluid restriction. Patient with acute/subacute infarct and late subacute bleed. Case discussed at length with cardiology and Neurology. Continue with aspirin, lipitor, folic acid and BP medication. Continue to adjust blood pressure medication. Continue with speech, physical therapy in hope to approve for rehab inpatient. Case discussed with her daughter who has medical power of corporate attorney. Continue to pursue inpatient rehab. Will discuss with social work tomorrow. Nausea, dizziness, headache secondary to 4.5 cm abnormal signal within the left occipital lobe likely a combination of acute/subacute infarction with small amount of late subacute bleed: Overall improved. Continue current treatment at this time. Continue aspirin, Lipitor, folic acid and blood pressure medication. Patient also on Keppra. Neurology wants to continue Keppra for at least 1 month and then discontinue. Paroxysmally atrial fibrillation: Continue with rate control medica [id number]. No chronic anti coagulation therapy at this time due to above but likely in the future. Continue with ASA. Will discuss further with Neurology. Hypertension: Continue with blood pressure control. Will adjust Lisinopril. Hyperlipidemia: Continue on Lipitor. Abnormal tsh with possible hyperthyroidism: May need to recheck lab in 2-4 weeks to confirm. If abnormal patient will need thyroid scan and endocrine evaluation as an outpatient. Suspect chronic renal disease stage 3: Will need to adjust medications. UTI-E coli: Will climate change risk assessor to oral medication. Patient will need 7 day treatment. Time Spent Managing Pts Care (In Minutes): 55
[2019-06-21] MEDS: lisinopriL 10 MG TAB PO SCH ×2 (16:53→20:52)
[2019-06-21] MEDS: ENOXAPARIN 40 MG/0.4 ML SQ SCH (16:53)
[2019-06-21] MEDS: ATORVASTATIN 40 MG TAB PO SCH (20:52)
[2019-06-22] MEDS: METOPROLOL TAR 50 MG TAB PO SCH (05:27)
[2019-06-22 06:29] LABS: Potassium 4.9 mmol/L (3.5-5.1)
[2019-06-22] MEDS: levETIRAcetam 500 MG TAB PO SCH (09:12)
[2019-06-22] MEDS: lisinopriL 10 MG TAB PO SCH (09:12)
[2019-06-22] MEDS: FOLIC ACID 1 MG TABLET PO SCH (09:13)
[2019-06-22] MEDS: FAMOTIDINE 20 MG TAB PO SCH (09:13)
[2019-06-22] MEDS: AMOX/K CLAV 500 MG TAB PO SCH (09:13)
[2019-06-22] MEDS: ASPIRIN EC 81 MG TAB PO SCH (09:13)
--- NOTE | 2019-06-22 10:43 | P.DS ---
Admission Date: 06/17/19 Discharge Date: 06/22/19 Primary Care Provider: Dr. Lua Disposition: TRANSFER TO INPATIENT REHAB Discharge Condition: GOOD Reason for Admission: Shortness of breath Consultations: Cardiology-Dr. Hammer Neurology-Dr. Cai Procedures: MRI Brain: FINDINGS: 4.5 centimeter area of abnormal signal is present within the left occipital lobe. It contains areas of low and high signal on T2 weighted sequences. It has low to intermediate signal on T1 weighted sequences. Diffusion weighted sequences demonstrate areas of low and high signal. ADC mapping demonstrates mostly low signal. Mild serpiginous enhancement is noted. Symmetric increased signal is present within the thalami bilaterally. Increased signal is present within basal ganglia bilaterally. Increased signal is present within the brainstem. Moderate signal within periventricular, deep and subcortical white matter The ventricles are normal caliber. No extra-axial fluid collection Fluid within the sinuses/mastoids is not seen IMPRESSION: 4.5 centimeter area of abnormal signal within the left occipital lobe may represent a combination of acute and subacute infarction with a small amount of late subacute blood. Follow up CT scan: FINDINGS: The basilar, internal carotid, anterior cerebral, middle cerebral and posterior cerebral arteries are normal caliber. An aneurysm is not seen. A significant stenosis is not noted. IMPRESSION: Unremarkable CT angiogram head. ECHO: Ejection fraction 30% LEFT VENTRICULAR WALL MOTION: SEVERE GLOBAL HYPOKINESIS. DOPPLER/COLOR FLOW: MILD TRICUSPID REGURGITATION. COMMENTS: SEVERE GLOBAL HYPOKINESIS WITH LEFT VENTRICULAR EJECTION FRACTION 30%. ACUTE SYSTOLIC CONGESTIVE HEART FAILURE. MITRAL ANNULAR CALCIFICATION. AORTIC SCLEROSIS WITH NO STENOSIS. EEG: IMPRESSION: THIS IS A MODERATELY ABNORMAL EEG DUE TO DEPRESSED AMPLITUDE AND FREQUENCIES IN THE LEFT VERSUS THE RIGHT POSTERIOR REGIONS. THIS FINDING IS CONSISTENT WITH A DESTRUCTIVE LESION IN THE LEFT POSTERIOR HEMISPHERE. NO EPILEPTIFORM ACTIVITY WAS RECORDED. Renal US: FINDINGS: Both kidneys are mildly echogenic. The left kidney appears mildly atrophic relative to the right. The right kidney measures 9.6 x 5.0 x 3.9 cm. No hydronephrosis, focal mass or perinephric fluid. The left kidney measures 7.1 x 3.9 x 3.9 cm.. No hydronephrosis, focal mass or perinephric fluid. The urinary bladder is incompletely distended without gross abnormality seen. IMPRESSION: Mildly echogenic kidneys bilaterally compatible with medical renal disease Medical Problem List: Shortness of breath with edema to the lower extremity suspect acute on chronic systolic CHF Nausea, dizziness, headache secondary to 4.5 cm abnormal signal within the left occipital lobe likely a combination of acute/subacute infarction with small amount of late subacute bleed Paroxysmally atrial fibrillation Hypertension Hyperlipidemia Abnormal tsh with possible hyperthyroidism Chronic renal disease stage 3 UTI-E. coli Brief History of Present Illness: 78-year-old female with history of hypertension presented to the [facility] room with shortness of breath. Patient has reported increasing shortness of breath over several days. She also reported some edema to. She denies any fever, chills, cough, or congestion. No sick contacts noted. Patient screen for COVID, negative. Patient came to the ER for further evaluation. In the ER patient was slightly hypertensive. Edema to the lower extremities were noted. Room-air saturations within normal range. White count 10.2, hemoglobin 12.3. Platelet count 203. Sodium stable. BUN of 21, creatinine 1.06 with a GFR 50. Glucose 109. Chest x-ray showed pulmonary edema. Venous Doppler lower extremities were negative. Patient given IV Lasix. Patient admitted for further evaluation and observation. When I saw the patient ER, she appeared stable. Patient denies history of CHF. Hospital Course: Patient presented with shortness of breath with edema. CHF was suspected. Acute on chronic CHF was identified. Patient also reported nausea, vomiting, dizziness and headache. Patient found to have 4.5 cm abnormal signal within the left occipital lobe likely a combination of acute/sub acute infarct with small amount of late subacute bleed. Patient was evaluated by neurology and cardiology. As for her CHF, Echocardiogram shows ejection fraction of 30%. Systolic CHF identified. Her condition improved with IV diuretic therapy. Diure tic therapy was backed off due to underlying chronic renal disease and stability without medication. Patient seen and evaluated by Cardiology. At discharge she will continue with a 1500 cc per day fluid restriction and low-salt diet. Recommend to monitor her weight daily. No need for diuretic therapy at this time. If her weight increases by more than 5 lb she is to contact cardiology for further recommendation. As for the left occipital acute/subacute infarct with small amount of late subacute bleed, her condition improved. Patient was seen and evaluated by a neurology. Neurology recommended that the patient be placed on Keppra for at least 1 month then discontinue. Patient responded to therapy well. At discharge she was accepted to inpatient rehab. She will be transfer to inpat ient rehab at discharge. At discharge she will continue with aspirin 81 mg daily, Lipitor 80 mg daily, folic acid 1 mg daily and her blood pressure medications metoprolol 50 mg 1 pill twice daily and lisinopril 10 mg 1 pill twice daily. As mentioned above patient will continue with Keppra 500 mg twice daily for 1 month then can be discontinued. Further rehab will continue in inpatient rehab. Patient had paroxysmally atrial fibrillation. Rate was controlled with beta- audra therapy. No chronic anti coagulation therapy is recommended at this time due to above findings. Patient will continue with aspirin 81 mg daily and metoprolol 50 mg 1 pill twice daily. This was recommended by neurology and cardiology. In the future will need to consider chronic anti coagulation therapy once she is fully recovered. Recommend follow up with cardiology in 2-4 weeks to monitor progress. Patient with hypertension. Pressures were elevated upon arrival. Medications were adjusted and started. Prior medications of candesartan, hydrochlorothiazide, and Toprol XL have been discontinued. At discharge she will continue with metoprolol 50 mg 1 pill twice daily and lisinopril 10 mg 1 pill twice daily. Further adjustment can be done in inpatient rehab. Recommend to maintain blood pressure less than 150/80. Further adjustment can be done by cardiology or neurology. Patient had abnormal tsh with possible hyperthyroidism. It is recommended that lab be recheck in 2-4 weeks to confirm. If abnormal patient will likely require thyroid scan and endocrine evaluation as an outpatient to further address. Patient had UTI. Patient will continue with Augmentin 500 mg twice daily for 2 more days to complete 7 day treatment. Recommend to recheck urine culture after that time to monitor resolution. Patient had suspected chronic renal disease. Renal ultrasound shows chronic disease. Patient with chronic renal disease stage III. This has remained stable. This can be further monitored as an outpatient. Recommend nephrology evaluation as an outpatient to further address and monitor. Recommend to recheck lab-BMP in 1 week. Patient takes Elavil for insomnia. This has been decreased. At discharge she will continue with Elavil 10 mg at bedtime as needed. Vital Signs/Physical Exam: Temp Pulse Resp BP Pulse Ox 98.1 F 62 18 143/70 H 97 06/22/19 08:00 06/22/19 09:12 06/22/19 08:00 06/22/19 09:12 06/22/19 08:00 General: Alert, Cooperative, Other (Patient less confused today. More alert.) Neck: Supple Respiratory: Clear to auscultation bilaterally, Normal air movement Cardiovascular: Normal pulses, Regular rate/rhythm Gastrointestinal: Normal bowel sounds, Soft and benign, Non-distended Musculoskeletal: No erythema, No tenderness, No warmth Integumentary: No tenderness/swelling, No erythema, No warmth, No cyanosis Neurological: Normal speech, Normal strength at 5/5 x4 extr, Normal tone, Normal affect Laboratory Data at Discharge: WBC 5.7 K/uL (4.3-10.9) D 06/20/19 05:18 Hgb 12.5 g/dL (12.0-15.0) 06/20/19 05:18 Hct 38.8 % (36.0-45.0) 06/20/19 05:18 Plt Count 208 K/uL (152-406) 06/20/19 05:18 PT 10.8 SECONDS (9.5-12.5) 06/17/19 08:49 INR 0.91 06/17/19 08:49 Sodium 137 mmol/L (136-145) 06/22/19 05:41 Potassium 4.9 mmol/L (3.5-5.1) 06/22/19 05:41 BUN 18 mg/dL (7-18) 06/22/19 05:41 Creatinine 0.93 mg/dL (0.55-1.3) 06/22/19 05:41 Glucose 94 mg/dL (74-106) 06/22/19 05:41 Phosphorus 2.3 mg/dL (2.5-4.9) L 06/20/19 05:18 Magnesium 2.2 mg/dL (1.8-2.4) 06/20/19 05:18 Magnesium 2.2 mg/dL (1.8-2.4) 06/20/19 05:18 Total Bilirubin 0.5 mg/dL (0.2-1.0) 06/20/19 05:18 AST 16 U/L (15-37) 06/20/19 05:18 ALT 15 U/L (12-78) 06/20/19 05:18 Alkaline Phosphatase 83 U/L (45-117) 06/20/19 05:18 Troponin I < 0.02 ng/mL (0.0-0.045) 06/20/19 05:18 Triglycerides 85 mg/dL (<150) 06/18/19 04:10 Cholesterol 241 mg/dL (<200) H 06/18/19 04:10 HDL Cholesterol 83 mg/dL (40-60) H 06/18/19 04:10 Cholesterol/HDL Ratio 2.90 06/18/19 04:10 Home Medications: Amitriptyline [Elavil*] 10 mg PO BEDTIME PRN #30 tab 06/22/19 Amox/Clavulanate [Augmentin 500-125 mg Tab*] 500 mg PO BID #4 tab 06/22/19 Aspirin [Aspirin EC 81 MG] 81 mg PO DAILY #90 tablet. 06/22/19 Atorvastatin Calcium [Lipitor] 40 mg PO BEDTIME #30 tab 06/22/19 Folic Acid 1 mg PO DAILY #90 tablet 06/22/19 Metoprolol Tartrate [Lopressor*] 50 mg PO BID 6AM 6PM #60 tab 06/22/19 levETIRAcetam [Keppra*] 500 mg PO BID #60 tab 06/22/19 lisinopriL [Prinivil*] 10 mg PO BID #60 tab 06/22/19 New Medications: Aspirin [Aspirin EC 81 MG] 81 mg PO DAILY #90 tablet. Amox/Clavulanate [Augmentin 500-125 mg Tab*] 500 mg PO BID #4 tab Amitriptyline [Elavil*] 10 mg PO BEDTIME PRN #30 tab PRN Reason: Insomnia Folic Acid 1 mg PO DAILY #90 tablet levETIRAcetam [Keppra*] 500 mg PO BID #60 tab Atorvastatin Calcium [Lipitor] 40 mg PO BEDTIME #30 tab Metoprolol Tartrate [Lopressor*] 50 mg PO BID 6AM 6PM #60 tab lisinopriL [Prinivil*] 10 mg PO BID #60 tab Patient Discharge Instructions: 1. Patient will go to inpatient rehab. 2. Patient presented with shortness of breath with edema. CHF was suspected. Acute on chronic CHF was identified. Patient also reported nausea, vomiting, dizziness and headache. Patient found to have 4.5 cm abnormal signal within the left occipital lobe likely a combination of acute/sub acute infarct with small amount of late subacute bleed. Patient was evaluated by neurology and cardiology. As for her CHF, Echocardiogram shows ejection fraction of 30%. Systolic CHF identified. Her condition improved with IV diuretic therapy. Diuretic therapy was backed off due to underlying chronic renal disease and stability without medication. Patient seen and evaluated by Cardiology. At discharge she will continue with a 1500 cc per day fluid restriction and low- salt diet. Recommend to monitor her weight daily. No need for diuretic therapy at this time. If her weight increases by more than 5 lb she is to contact cardiology for further recommendation. 3. As for the left occipital acute/subacute infarct with small amount of late subacute bleed, her condition improved. Patient was seen and evaluated by a neurology. Neurology recommended that the patient be placed on Keppra for at least 1 month then discontinue. Patient responded to therapy well. At discharge she was accepted to inpatient rehab. She will be transfer to inpatient rehab at discharge. At discharge she will continue with aspirin 81 mg daily, Lipitor 80 mg daily, folic acid 1 mg daily and her blood pressure medications metoprolol 50 mg 1 pill twice daily and lisinopril 10 mg 1 pill twice daily. As mentioned above patient will continue with Keppra 500 mg twice daily for 1 month then can be discontinued. Further rehab will continue in inpatient rehab. 4. Patient had paroxysmally atrial fibrillation. Rate was controlled with beta-audra therapy. No chronic anti coagulation therapy is recommended at this time due to above findings. Patient will continue with aspirin 81 mg daily and metoprolol 50 mg 1 pill twice daily. This was recommended by neurology and cardiology. In the future will need to consider chronic anti coagulation therapy once she is fully recovered. Recommend follow up with cardiology in 2-4 weeks to monitor progress. 5. Patient with hypertension. Pressures were elevated upon arrival. Medications were adjusted and started. Prior medications of candesartan, hydrochlorothiazide, and Toprol XL have been discontinued. At discharge she will continue with metoprolol 50 mg 1 pill twice daily and lisinopril 10 mg 1 pill twice daily. Further adjustment can be done in inpatient rehab. Recommend to maintain blood pressure less than 150/80. Further adjustment can be done by cardiology or neurology. 6. Patient had abnormal tsh with possible hyperthyroidism. It is recommended that lab be recheck in 2-4 weeks to confirm. If abnormal patient will likely require thyroid scan and endocrine evaluation as an outpatient to further address. 7. Patient had UTI. Patient will continue with Augmentin 500 mg twice daily for 2 more days to complete 7 day treatment. Recommend to recheck urine culture after that time to monitor resolution. 8. Patient had suspected chronic renal disease. Renal ultrasound shows chronic disease. Patient with chronic renal disease stage III. This has remained stable. This can be further monitored as an outpatient. Recommend nephrology evaluation as an outpatient to further address and monitor. Recommend to recheck lab-BMP in 1 week. 9. Patient takes Elavil for insomnia. This has been decreased. At discharge she will continue with Elavil 10 mg at bedtime as needed. Diet: AHA Activity: Fall precautions Time spent managing pt's care (in minutes): 55
[2019-06-22 13:27] VITALS: O2SAT 98
[2019-06-22 14:36] VITALS: BP 148/70; TEMP 98.2
--- NOTE | 2019-06-22 20:17 | EKG ---
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
== END 2019-06-22 14:35 | DRG 291 ==
LOC: ER 08:18 → ERHOLD 10:54 → OBSVTOIN 10:54 → 4TH 11:37 → 2ND 06-18 02:25
PROVIDERS: ADMIT Family Medicine; ATTEND Family Medicine
PROC: 8E0ZXY6 Isolation (ICD-10-PCS; principal; 2019-06-17)
DX: I13.0 Hypertensive heart and chronic kidney disease with heart failure and stage 1 through stage 4 chronic kidney disease, or unspecified chronic kidney disease (principal); I50.23 Acute on chronic systolic (congestive) heart failure; I63.9 Cerebral infarction, unspecified; N39.0 Urinary tract infection, site not specified; I62.9 Nontraumatic intracranial hemorrhage, unspecified; R47.01 Aphasia; N18.3 Chronic kidney disease, stage 3 (moderate); I48.0 Paroxysmal atrial fibrillation; E78.5 Hyperlipidemia, unspecified; E05.90 Thyrotoxicosis, unspecified without thyrotoxic crisis or storm; B96.20 Unspecified Escherichia coli [E. coli] as the cause of diseases classified elsewhere; Z20.828 Contact with and (suspected) exposure to other viral communicable diseases; G47.00 Insomnia, unspecified; Z79.82 Long term (current) use of aspirin; Z79.899 Other long term (current) drug therapy; Z91.19 Patient's noncompliance with other medical treatment and regimen; Z60.2 Problems related to living alone; H53.47 Heteronymous bilateral field defects; R41.0 Disorientation, unspecified; Z66 Do not resuscitate
CPT/HCPCS: 36415; 70450; 70496; 70553; 71045; 71046; 76770; 80048; 80053; 80061; 80076; 81003; 81015; 82550; 82553; 82947; 83735; 83880; 84100; 84145; 84439; 84443; 84484; 85025; 85610; 87070; 87077; 87081; 87086; 87088; 87186; 87804; 93005; 93306; 93970; 95819; 96374; 96375; 97112; 97116; 97161; 97530; 99285; A9577; J0360; J0696; J1650; J1940; J1953; J2405; J2550; J7030; Q9967; U0002

== ENCOUNTER 2019-06-19 10:37 | Inpatient (IN) | payer OTHER ==
--- NOTE | 2019-06-22 10:25 | R.PREADM ---
SCREENING DATE AND TIME 06/22/2019 09:06 (CDT) ANTICIPATED REHAB ADMISSION DATE 06/24/2019 REFERRING FACILITY [facility] REFERRAL DATE AND TIME 06/22/2019 09:06 (CDT) REFERRAL ROOM# 204 ACUTE ADMIT DATE 06/17/2019 Previous Rehabilitation(s): No. 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 Richard Cai M.D. MR# [id number] NAME SHANELL CISSE ADDRESS [address] [place] [address] PHONE [facility] [id number] DATE OF 1940 AGE 78 SSN# [id number] GENDER female MARITAL STATUS RACE white ADMIT FROM 02 - [facility] PRE-HOSPITAL LIVING SETTING 01 - Home (private home/apt. board/care, assisted living, nursing home, transitional living) HOME TYPE AND DETAILS Type of home: single family house # of levels in the residence: 1 # of steps within the residence: 0 # of steps to enter the residence: 0 PRE-HOSPITAL LIVING WITH Family/Relatives FAMILY SUPPORT Yes PRIMARY FAMILY CONTACT NAME [employer] PHONE PRIMARY FAMILY CONTACT ON ADM.? no IS PRIMARY FAMILY CONTACT AUTH. REP.? no 1ST EMERGENCY CONTACT [employer] EST[employer] PHONE 1ST CONTACT ON ADM. no IS 1ST CONTACT AUTH. REP.? no PHONE 2ND CONTACT ON ADM.? no PATIENT EMPLOYMENT STATUS Retired (for age) PATIENT EMPLOYER No Employer PAYOR INFORMATION: 1ST PAYOR NAME [employer] 1ST PAYOR PHONE [phone] 1ST PAYOR INJURY/ILLNESS DUE TO ACCIDENT? No ANOTHER CONSTITUTION PARTY RESPONSIBLE? No PRIMARY REHAB/ACUTE DIAGNOSIS: CHF ONSET DATE 06/17/2019 REHAB IMPAIRMENT CATEGORY (KHOI): 14 Cardiac does NOT meet 60% rule PRIMARY DIAGNOSIS-RELATED SURGERIES: NO Cardiac Disorders (09) - performed by on 06/17/2019 SUMMARY OF ACUTE HOSPITALIZATION: Pt. is a 78 yo Right-handed white female. On 06/17/2019 she was admitted to [facility] with diagnosis CHF. Her impairment category is Cardiac 09 - Cardiac Disorders (09). Pre-morbidly, Pt. was independent/mod-I in Locomotion, Balance, Safety Awareness, Social Cognition, T ransfers Control, and Self-Care; and she had good Locomotion, Safety Awareness, Social Cognition, Tra nsfers Control, Sphincter Control, and Self-Care. Currently, she has deficits of Safety Awareness, Balance, Self-Care, Locomotion, Transfers Control, a nd Endurance. Pt. is now referred to [facility] for acute in-patient rehabilitation in order to maximize patient's functional independence in activities of daily living, strength, ROM, and mobi lity. Patient has realistic goal of being discharged at assistance level 3-modA to reside at Home with Fam belle/Relatives. Ms. Shanell Cisse is a 78 year old right handed women that lives independently. She has hypertension and came to [facility] with perhaps 1 or more days of some cough, shortness of breath and subjective fever. She was also confused and disoriented. Patient was evaluated for COVID-19 and studies were actually sent off, which subsequently come back negative for RT-PCR. 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 Given the nature of the possibility of irritation in that region and the possibility of seizures, patient was placed on Keppra 500 mg twice daily. She was admitted to the floor for additional stroke workup and treatment of possible urinary tract infection. Patient was transferred to [facility] inpt rehab and is hemodynamically stable with relatively stable labs. He is now medically stable but in need of 24 hour nursing, doctor supervision and oversight while receiving active and ongoing intensive hours of therapy a day/15 hours per week and receive care with intensive interdisciplinary approach. COVID-19 screening performed; spoke with patient via phone. Patient denies new onset of fever, cough, difficulty breathing, sore throat, body aches and non-allergy nasal congestion in the past 24 hours. Patient denies travel outside of [place] in the past 14 days. Patient denies any contact with someone who has a confirmed diagnosis of or is under investigation for COVID-19 in the past 14 days. PAST MEDICAL HISTORY CHRONIC HEADACHE SOME MEMORY LOSS SOB CHF HTN CVA L OCCIPITAL LOBE PALPITATION AND DIZZINESS MEDICATION ALLERGIES: No Known Drug Allergies (NKDA) ENVIRONMENTAL ALLERGIES: - Substance Allergies None Known - Other Allergies None Known CODE STATUS: DNR - Physician discussed with patient on 06/22/2019 WEIGHT/HEIGHT/BMI: WEIGHT 144 Lbs HEIGHT 5' 6" BMI 23.2 DIET: - Diet Type Regular - Diet - Solid Texture Regular - Diet - Liquid Texture Regular - Tube Feed N/A REVIEW OF SYSTEMS: - Gen Alert and awake Lying in bed No apparent distress Oriented to: person, time, and place - Vital Signs Temperature: 98.1 F SBP/DBP: 150/90 Pulse: 73 Resp: 18 Vital signs stable, afebrile - CVS RRR VITAL SIGNS Temperature: 98.1 F SBP/DBP: 150/90 Pulse: 73 Resp: 18 Vital signs stable, afebrile MEDICATIONS/TREATMENT: Other- See attached MAR (Medication Administration Record). CURRENT SPHINCTER CONTROL: Pre-hospital bladder status: continent # of bladder accidents in the last 7 days prior to screenin Pre-hospital bowel status: continent # of bowel accidents in the last 7 days prior to screenin Last Bowel Movement Date: 06/19/2019 CURRENT LOCOMOTION STATUS: distance walked 300 feet DETAILED CURRENT FUNCTIONAL STATUS: - Bladder accident frequency: Ind - No accidents in the past 7 days - Bowel accident frequency: Ind - No accidents in the past 7 days - Walking score based on distance walked: 0(N/A) score based on distance walked: 3(>=150ft) - Wheelchair score based on distance traveled: 0(N/A) QI SCORES: - Self-Care A. Eating 03-Partial/moderate assistance B. Oral hygiene 03-Partial/moderate assistance C. Toileting hygiene 03-Partial/moderate assistance E. Shower/bathe self 03-Partial/moderate assistance F. Upper body dressing 03-Partial/moderate assistance G. Lower body dressing 03-Partial/moderate assistance H. Putting on/taking off footwear 88-Not attempted due to medical condition or safety concerns - Mobility B. Sit to lying 03-Partial/moderate assistance C. Lying to sitting on side of bed 03-Partial/moderate assistance D. Sit to stand 03-Partial/moderate assistance E. Chair/ljn-ii-yxdth transfer 03-Partial/moderate assistance F. Toilet transfer 03-Partial/moderate assistance G. Car transfer 88-Not attempted due to medical condition or safety concerns I. Walk 10 feet 03-Partial/moderate assistance J. Walk 50 feet with two turns 88-Not attempted due to medical condition or safety concerns K. Walk 150 feet 88-Not attempted due to medical condition or safety concerns L. Walking 10 feet on uneven surfaces 88-Not attempted due to medical condition or safety concerns M. 1 step (curb) 88-Not attempted due to medical condition or safety concerns N. 4 steps 88-Not attempted due to medical condition or safety concerns O. 12 steps 88-Not attempted due to medical condition or safety concerns P. Picking up object 06-Independent R. Wheel 50 feet with two turns 88-Not attempted due to medical condition or safety concerns S. Wheel 150 feet 88-Not attempted due to medical condition or safety concerns - Bladder and Bowel Bladder continence 0-Always continent Bowel continence 0-Always continent - Endurance Fair - Balance Fair - Safety Awareness Fair CURRENT FUNC. DEFICITS: Self-Care, Mobility, Endurance, Balance, and Safety Awareness CURRENT / PREVIOUS ASSISTIVE DEVICES: 3-in-1 [facility] Bed Raised Toilet Rolling Walker Shower Chair HISTORY OF FALLS. HAS THE PATIENT HAD TWO OR MORE FALLS IN THE PAST YEAR OR ANY FALL WITH INJURY IN T HE PAST YEAR?: No PRIOR SURGERY. DID THE PATIENT HAVE MAJOR SURGERY DURING THE 100 DAYS PRIOR TO ADMISSION?: No THERAPY NOTES FROM ACUTE CARE: Attached. SPECIAL NEEDS: - Safety Concerns Skin breakdown precautions needed due to skin breakdown risk PATIENT NEEDS ACTIVE AND ONGOING THERAPEUTIC INTERVENTION OF MULTIPLE THERAPY DISCIPLINES, INCLUDING: - Dietary and Nutrition Adequate Nutrition. Nutritional Education. Nutritional Supplements. PATIENT NEEDS CLOSE MEDICAL SUPERVISION BY A REHABILITATION PHYSICIAN FOR: Coordination of Treatment Team PATIENT REQUIRES 24X7 REHAB NURSING FOR MEDICAL AND FUNCTIONAL MGT. OF THE FOLLOWING DEFICITS: Disease Management Medication Management Patient/Family Education Providing Safe Environment PATIENT REQUIRES INTENSIVE, COORDINATED INTERDISCIPLINARY APPROACH TO REHAB: Arranging Home Equipment/Services Discharge Planning Family Intervention/Training Program Writer/Case Management PATIENT REHAB POTENTIAL: Mando CISSE is able and expected to receive 3 hours of individualized therapy daily on at least 5 of ev salvador 7 days Mando CISSE's prognosis for significant practical improvement within a reasonable period of time appear s Good Expected level of measurable improvement will be of a practical value to Mando CISSE's functional capac ity or adaptations to impairments Has a viable Discharge Plan Medically appropriate; condition is sufficiently stable to participate in intensive rehab program DISCHARGE PLAN: - Estimated Length of Stay (days) 10. - Consensus on plan Discharge plan has been discussed with primary caregiver. Patient/Family is in agreement with the larry n. Primary caregiver is in agreement with the plan. - Patient/Family Goals Return home independently. - Planned Living Setting Upon Discharge Home, to live with Family/Relatives. Transitional Living. RECOMMENDED CARE LEVEL: IRF RECOMMENDATION DETAILS: Recommended Admission to Comprehensive Rehabilitation Program to Increase Functional [place] SCREENER'S COMPLETENESS CONFIRMATION: - Screening Confirmation The patient data collection on this preadmission screening form is finished PHYSICIANS REVIEW AND ADMISSION DETERMINATION Admit - Based on my review of the Pre-Admission Screening results, in my medical judgment and experie nce, I concur with the findings and recommend admission to [facility], as this patient requires an IRF level of care. SIGNATURE PANEL: Clinical Liaison - [electronically] signed by Santosh Bowles on 06/22/2019 at 09:37 (CDT) Clinical Liaison - [electronically] signed by Yasmeen Mcconnell RN on 06/22/2019 at 10:06 (CDT) Physician Reviewer - [electronically] signed by Dr. Richard Cai M.D. on 06/22/2019 at 10:24 (CDT )
[2019-06-22] MEDS ORDERED: AMITRIPTYLINE 10 MG TAB PO PRN (16:00)
[2019-06-22] MEDS: METOPROLOL TAR 50 MG TAB PO SCH (17:41)
[2019-06-22 18:14] LABS: Urine Appearance CLEAR; Urine Bilirubin NEGATIVE (NEG); Urine Blood NEGATIVE (NEG); Urine Color YELLOW; Urine Glucose NEGATIVE (NEG); Urine Protein NEGATIVE (NEG); Urine Specific Gravity 1.015 (1.005-1.030)
[2019-06-22 18:22] LABS: Urine Bacteria <20 /HPF (<20); Urine RBC <5 /HPF (NONE SEEN)
[2019-06-22 18:23] LABS: Urine Culture Reflex Order NOT NEEDED; Urine Mucus 1+ /HPF (NONE SEEN)
[2019-06-22] MEDS: AMOX/K CLAV 500 MG TAB PO SCH (21:51)
[2019-06-22] MEDS: levETIRAcetam 500 MG TAB PO SCH (21:51)
[2019-06-22] MEDS: lisinopriL 10 MG TAB PO SCH (21:51)
[2019-06-22] MEDS: ATORVASTATIN 40 MG TAB PO SCH (21:52)
[2019-06-22] MEDS: MELATONIN 3 MG TABLET PO PRN (21:52)
[2019-06-23] MEDS: METOPROLOL TAR 50 MG TAB PO SCH ×2 (05:21→16:56)
[2019-06-23 06:13] LABS: Absolute Lymphocytes (CBC) 1.4 K/uL (0.7-4.9); Basophils % 0.6 % (0-1.3); MPV 9.7 fL (7.6-11.3); RBC Red Blood Cell Count 5.15 M/uL (3.86-4.86)
[2019-06-23 06:36] LABS: Albumin 3.4 g/dL (3.4-5.0); Magnesium 2.2 mg/dL (1.8-2.4); Potassium 4.2 mmol/L (3.5-5.1); Prealbumin 15.4 mg/dL (20-40)
[2019-06-23] MEDS: ENOXAPARIN 40 MG/0.4 ML SQ SCH (07:26)
[2019-06-23] MEDS: ASPIRIN EC 81 MG TAB PO SCH (07:27)
[2019-06-23] MEDS: AMOX/K CLAV 500 MG TAB PO SCH ×2 (07:27→20:38)
[2019-06-23] MEDS: FOLIC ACID 1 MG TABLET PO SCH (07:27)
[2019-06-23] MEDS: levETIRAcetam 500 MG TAB PO SCH ×2 (07:27→20:38)
[2019-06-23] MEDS: lisinopriL 10 MG TAB PO SCH ×2 (07:28→20:38)
--- NOTE | 2019-06-23 14:56 | R.HP ---
FACILITY: [facility] ENCOUNTER DATE AND TIME: 06/23/2019 14:53 (CDT) MR#: [id number] NAME SHANELL CORTES ADDRESS: [address] [place] [address]: [place] [address] PHONE: DATE OF : 1940 AGE: 78 SSN# [id number] GENDER: Female DEXTERITY Right-handed MARITAL STATUS RACE White PRE-HOSPITAL LIVING SETTING 01 - Home (private home/apt. board/care, assisted living, detention, transitional living) PRE-HOSPITAL LIVING WITH Family/Relatives ENCOUNTER PHYSICIAN: Dr. Richard Cai M.D. REFERRING DOCTOR: DATE OF ADMISSION: 06/22/2019 14:41 (CDT) REFERRING FACILITY [facility] HOME TYPE AND DETAILS: Type of home: single family house # of levels in the residence: 1 # of steps within the residence: 0 # of steps to enter the residence: 0 ONSET DATE: 06/17/2019 PRIMARY DIAGNOSIS-RELATED SURGERIES: NO Cardiac Disorders () - performed by on 06/17/2019 HISTORY OF PRESENT ILLNESS (HPI): Pt. is a 78 yo Right-handed white female. On 06/17/2019 she was admitted to [facility] with diagnosis CHF. Her impairment category is Cardiac 09 - Cardiac Disorders (09). Pre-morbidly, Pt. was independent/mod-I in Locomotion, Balance, Safety Awareness, Social Cognition, T ransfers Control, and Self-Care; and she had good Locomotion, Safety Awareness, Social Cognition, Tra nsfers Control, Sphincter Control, and Self-Care. Currently, she has deficits of Safety Awareness, Balance, Self-Care, Locomotion, Transfers Control, a nd Endurance. Pt. is now referred to [facility] for acute in-patient rehabilitation in order to maximize patient's functional independence in activities of daily living, strength, ROM, and mobi lity. Patient has realistic goal of being discharged at assistance level 3-modA to reside at Home with Fam belle/Relatives. Ms. Shanell Cortes is a 78 year old right handed women that lives independently. She has hypertension and came to [facility] with perhaps 1 or more days of some cough, shortness of breath and subjective fever. She was also confused and disoriented. Patient was evaluated for COVID-19 and studies were actually sent off, which subsequently come back negative for RT-PCR. 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 Given the nature of the possibility of irritation in that region and the possibility of seizures, patient was placed on Keppra 500 mg twice daily. She was admitted to the floor for additional stroke workup and treatment of possible urinary tract infection. Patient was transferred to [facility] inpt rehab and is hemodynamically stable with relatively stable labs. He is now medically stable but in need of 24 hour nursing, doctor supervision and oversight while receiving active and ongoing intensive hours of therapy a day/15 hours per week and receive care with intensive interdisciplinary approach. COVID-19 screening performed; spoke with patient via phone. Patient denies new onset of fever, cough, difficulty breathing, sore throat, body aches and non-allergy nasal congestion in the past 24 hours. Patient denies travel outside of [place] in the past 14 days. Patient denies any contact with someone who has a confirmed diagnosis of or is under investigation for COVID-19 in the past 14 days. MEDICATION ALLERGIES: No Known Drug Allergies (NKDA) ENVIRONMENTAL ALLERGIES: - Substance Allergies None Known - Other Allergies None Known PAST MEDICAL HISTORY: CHRONIC HEADACHE SOME MEMORY LOSS SOB CHF HTN CVA L OCCIPITAL LOBE PALPITATION AND DIZZINESS FAMILY HISTORY: Family history is not contributory. SOCIAL HISTORY: - Home Living Family/Relatives REVIEW OF SYSTEMS: - Gen No Chills Fatigue No Fever - Eyes No Double Vision No itchiness - ENMT Difficulty Swallowing - CVS No Chest Discomfort No Chest Pain Fatigue No Weight Gain - Resp No Cough Shortness of Breath - GI Continent No Abdominal Pain No Constipation No Diarrhea - Continent No Kidney Pain No Painful Urination No Urinary Urgency - MSK No Joint Pain Muscle Cramps Stiffness - Skin No Itching No Rash No Suspicious Lesions - Neuro Coordination Difficulty No Difficulty with Concentration No Memory Loss No Seizures Weakness - Psych No Anxiety No Depression No HIV Exposure No Persistent Infections No Seasonal Allergies - Endo No Cold/Heat Intolerance No Excessive Hunger No Excessive Thirst No Excessive Urination PHYSICAL EXAM - Gen Alert and awake Lying in bed No apparent distress Oriented to: person, time, and place - Skin No skin breakdown. No abnormalities - Eyes No abnormalities - ENMT No abnormalities - Neck No abnormalities - CVS RRR - Chest mild decrease in breath sounds - Resp No wheezing - Abd Soft - GI Non distended Deferred - No abnormalities - Ext No significant edema - MSK 4/5 weakness in both lower extremities. - Neuro No focal deficits - Psych No abnormalities VITAL SIGNS Temperature: 98.1 F SBP/DBP: 160/94 Pulse: 89 Resp: 16 NURSING: - Shower allowing shower ACTIVITIES OOB only with supervision QI SCORES: - Self-Care A. Eating 03-Partial/moderate assistance B. Oral hygiene 03-Partial/moderate assistance C. Toileting hygiene 03-Partial/moderate assistance E. Shower/bathe self 03-Partial/moderate assistance F. Upper body dressing 03-Partial/moderate assistance G. Lower body dressing 03-Partial/moderate assistance H. Putting on/taking off footwear 88-Not attempted due to medical condition or safety concerns - Mobility B. Sit to lying 03-Partial/moderate assistance C. Lying to sitting on side of bed 03-Partial/moderate assistance D. Sit to stand 03-Partial/moderate assistance E. Chair/acy-al-azpne transfer 03-Partial/moderate assistance F. Toilet transfer 03-Partial/moderate assistance G. Car transfer 88-Not attempted due to medical condition or safety concerns I. Walk 10 feet 03-Partial/moderate assistance J. Walk 50 feet with two turns 88-Not attempted due to medical condition or safety concerns K. Walk 150 feet 88-Not attempted due to medical condition or safety concerns L. Walking 10 feet on uneven surfaces 88-Not attempted due to medical condition or safety concerns M. 1 step (curb) 88-Not attempted due to medical condition or safety concerns N. 4 steps 88-Not attempted due to medical condition or safety concerns O. 12 steps 88-Not attempted due to medical condition or safety concerns P. Picking up object 06-Independent R. Wheel 50 feet with two turns 88-Not attempted due to medical condition or safety concerns S. Wheel 150 feet 88-Not attempted due to medical condition or safety concerns - Bladder and Bowel Bladder continence 0-Always continent Bowel continence 0-Always continent - Endurance Fair - Balance Fair - Safety Awareness Fair CURRENT FUNC. DEFICITS: Self-Care, Mobility, Endurance, Balance, and Safety Awareness MEDICATIONS: - Other See attached MAR (Medication Administration Record) ASSESSMENT: Pt. is a 78 yo Right-handed white female.On 06/17/2019 she was admitted to [facility] wi th diagnosis CHF.Her impairment category is Cardiac 09 - Cardiac Disorders (09).Pre-morbidly, Pt. wa s independent/mod-I in Locomotion, Balance, Safety Awareness, Social Cognition, Transfers Control, an d Self-Care; and she had good Locomotion, Safety Awareness, Social Cognition, Transfers Control, Sphi ncter Control, and Self-Care.Currently, she has deficits of Safety Awareness, Balance, Self-Care, Loc omotion, Transfers Control, and Endurance.Pt. is now referred to [facility] fo r acute in-patient rehabilitation in order to maximize patient's functional independence in activitie s of daily living, strength, ROM, and mobility.- Rehab Goal Patient has realistic goal of being discharged at assistance level 3-modA to reside at Home with Fam belle/Relatives. Ms. Shanell Cortes is a 78 year old right handed women that lives independently. She has hypertension and came to [facility] with perhaps 1 or more days of some cough, shortness of breath and subjective fever. She was also confused and disoriented. Patient was evaluated for COVID-19 and studies were actually sent off, which subsequently come back negative for RT-PCR. 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 Given the nature of the possibility of irritation in that region and the possibility of seizures, patient was placed on Keppra 500 mg twice daily. She was admitted to the floor for additional stroke workup and treatment of possible urinary tract infection. Patient was transferred to [facility] inpt rehab and is hemodynamically stable with relatively stable labs. He is now medically stable but in need of 24 hour nursing, doctor supervision and oversight while receiving active and ongoing intensive hours of therapy a day/15 hours per week and receive care with intensive interdisciplinary approach. COVID-19 screening performed; spoke with patient via phone. Patient denies new onset of fever, cough, difficulty breathing, sore throat, body aches and non-allergy nasal congestion in the past 24 hours. Patient denies travel outside of [place] in the past 14 days. Patient denies any contact with someone who has a confirmed diagnosis of or is under investigation for COVID-19 in the past 14 days.REHAB PLAN: - Physical Therapy Gait dysfunction - to improve, our physical therapists will perform initial evaluation of pt's status upon admission and devise an individualized program for Gait Training, and Wheel Chair mobility Inability to transfer - to improve, our physical therapists will perform initial evaluation of pt's s tatus upon admission and devise an individualized program for Bed mobility Need for home safety evaluation - to improve, our physical therapists will perform initial evaluation of pt's status upon admission and devise an individualized program for Home Evaluation Need in caregiver upon discharge - to improve, our physical therapists will perform initial evaluatio n of pt's status upon admission and devise an individualized program for Caregiver Training New precaution - to improve, our physical therapists will perform initial evaluation of pt's status u vinay admission and devise an individualized program for Patient precaution education Edema - to improve, our physical therapists will perform initial evaluation of pt's status upon admi ssion and devise an individualized program for Elevation Training, and Lymphedema Therapy Poor balance - to improve, our physical therapists will perform initial evaluation of pt's status upo n admission and devise an individualized program for Balance Training Poor endurance - to improve, our physical therapists will perform initial evaluation of pt's status u vinay admission and devise an individualized program for Endurance Training Weakness - to improve, our physical therapists will perform initial evaluation of pt's status upon ad mission and devise an individualized program for Aquatic Therapy, Neuromuscular Reeducation, and Stre ngthening Achieving independence - to improve, our physical therapists will perform initial evaluation of pt's status upon admission and devise an individualized program for Community Reintegration Activities - Occupational Therapy ADL deficits - to improve, our occupation therapists will perform initial evaluation of pt's status u vinay admission and devise an individualized program for Bathing, Bed mobility, Community Reintegration , Cooking, Dressing, Eating, Fine Motor Skills, Grooming, Homemaking, Kitchen Mobility, Laundry, Pamela ent Education, Safety Awareness, Splinting - Positioning, Transfers(Toilet, Tub, Shower), and Wheel C hair Management Need for client care coordinator - to improve, our occupation therapists will perform initial evaluation of pt's s tatus upon admission and devise an individualized program for Caregiver Training Weakness - to improve, our occupation therapists will perform initial evaluation of pt's status upon admission and devise an individualized program for Aquatic Therapy, Balance, Endurance, UE ROM, and U E strengthening MEDICAL PLAN: - Diet Type Start Regular - Diet - Liquid Texture Start Regular - Tube Feed Start N/A - Other See attached MAR (Medication Administration Record) - Diet - Solid Texture Regular - Shower shower DISCHARGE PLAN: - Estimated Length of Stay (days) 10. - Consensus on plan Discharge plan has been discussed with primary caregiver. Patient/Family is in agreement with the larry n. Primary caregiver is in agreement with the plan. - Patient/Family Goals Return home independently. - Planned Living Setting Upon Discharge Home, to live with Family/Relatives. Transitional Living. SIGNATURE PANEL: (CDT)
--- NOTE | 2019-06-23 14:57 | PAPE ---
PATIENT: [facility] MR# [id number] REFERRING DOCTOR EVALUATION DATE AND TIME 06/23/2019 14:56 (CDT) NAME ALEXANDRIA CORTES DATE OF 1940 AGE 78 PHONE SSN# [id number] GENDER female EVALUATING PHYSICIAN Dr. Richard Cai M.D. ADMISSION DIAGNOSIS: CHF ONSET DATE 06/17/2019 POST-ADMISSION FUNCTIONAL/MEDICAL STATUS: - Bladder Same accident frequency: Ind - No accidents in the past 7 days - Bowel Same accident frequency: Ind - No accidents in the past 7 days - Walking Same score based on distance walked: 0(N/A) Same score based on distance walked: 3(>=150ft) - Wheelchair Same score based on distance traveled: 0(N/A) STATUS CHANGE EVALUATION: No change in Functional or Medical Status is identified compared with Pre-Admission screening. PATIENT NEEDS CLOSE MEDICAL SUPERVISION BY A REHABILITATION PHYSICIAN FOR: Coordination of Treatment Team PATIENT REQUIRES 24X7 REHAB NURSING FOR MEDICAL AND FUNCTIONAL MGT. OF THE FOLLOWING DEFICITS: Disease Management Medication Management Patient/Family Education Providing Safe Environment PATIENT REQUIRES INTENSIVE, COORDINATED INTERDISCIPLINARY APPROACH TO REHAB: Arranging Home Equipment/Services Discharge Planning Family Intervention/Training Aquacultural Worker Supervisor/Case Management LIST OF IDENTIFIED AND POTENTIAL PROBLEMS: Alteration in leisure activities Bladder, Incontinence Bowel, Incontinence Infection, Actual or Potential Mobility Impaired Pain, Alteration in Comfort Self Care Deficit Skin Integrity, Actual or Potential Urinary Tract Infection (UTI), Actual or Potential PATIENT COULD BE AT RISK FOR COMPLICATIONS FROM ADVERSE MEDICAL CONDITIONS DUE TO HIS/HER COMORBIDITI ES AND THE RIGORS OF THE INTENSIVE REHABILLITATION PROGRAM. METHODS OR INTERVENTIONS TO AVOID COMPLIC ATIONS INCLUDE: - Infection Clinical staff to assess and manage the signs and symptoms of infection including fever, redness, war mth, etc. - Urinary Tract Infection - Falls Patient will be evaluated for Fall Precautions and will be placed on Fall Precautions as indicated pe r protocol. - Skin Breakdown Nursing will assess skin daily using assessment tool and will place on Skin Breakdown Precautions as indicated per protocol. - Pain Clinical staff may employ non-medication methods such as massage, distraction, decrease stimulus, etc . as needed. Clinical staff will assess patient's pain level every shift per protocol to assess and e nsure pain management effectiveness. Medications will be given and the pain level re-assessed. PRELIMINARY PLAN OF CARE: - Physical Therapy Patient needs Physical Therapy for a daily minimum of 1.5 hours at least 5 out of 7 days, to improve: Mobility, Strengthening, Transfers, Stretching, ROM, Endurance, Ability to manage stairs, Gait, and Balance. - Speech Therapy Patient needs Speech Therapy for a daily minimum of 0.5 hours at least 5 out of 7 days, to improve: S wallowing, Cognition, Language Skills, and Compensatory Strategies. - Rehabilitation Nursing Patient requires 24x7 Rehabilitation Nursing for: Pain Issues, Identifying and preventing risk factor s, Monitoring and reporting current medical conditions, Assisting with ambulation and transfer, Adiel ting with all ADL-s, Teaching patients about disease process and medications, Family teaching, Provid ing safe environment, Bowel and Bladder Issues, Skin Integrity, and Medication Management. Patient needs Aquacultural Worker Supervisor and/or Case Management for: Discharge Planning, Arranging Home Equipmen t or Services, and Family Interventions. - Dietary and Nutrition Services Patient needs Dietary and Nutrition Services for: Adequate Nutrition, Nutritional Supplements, and Nu tritional Education. - Occupational Therapy Patient needs Occupational Therapy for a daily minimum of 1.5 hours at least 5 out of 7 days, to impr ove Activities of Daily Living, including: Eating, Grooming, Bathing, Dressing, Toileting, Toilet Tra nsfers, Community Reintegration, Higher functional activities, Adaptive Equipment, Splinting, Househo ld Tasks, and Other activities as determined. QI SCORES: - Self-Care A. Eating 03-Partial/moderate assistance B. Oral hygiene 03-Partial/moderate assistance C. Toileting hygiene 03-Partial/moderate assistance E. Shower/bathe self 03-Partial/moderate assistance F. Upper body dressing 03-Partial/moderate assistance G. Lower body dressing 03-Partial/moderate assistance H. Putting on/taking off footwear 88-Not attempted due to medical condition or safety concerns - Mobility B. Sit to lying 03-Partial/moderate assistance C. Lying to sitting on side of bed 03-Partial/moderate assistance D. Sit to stand 03-Partial/moderate assistance E. Chair/rfi-dd-lvnhy transfer 03-Partial/moderate assistance F. Toilet transfer 03-Partial/moderate assistance G. Car transfer 88-Not attempted due to medical condition or safety concerns I. Walk 10 feet 03-Partial/moderate assistance J. Walk 50 feet with two turns 88-Not attempted due to medical condition or safety concerns K. Walk 150 feet 88-Not attempted due to medical condition or safety concerns L. Walking 10 feet on uneven surfaces 88-Not attempted due to medical condition or safety concerns M. 1 step (curb) 88-Not attempted due to medical condition or safety concerns N. 4 steps 88-Not attempted due to medical condition or safety concerns O. 12 steps 88-Not attempted due to medical condition or safety concerns P. Picking up object 06-Independent R. Wheel 50 feet with two turns 88-Not attempted due to medical condition or safety concerns S. Wheel 150 feet 88-Not attempted due to medical condition or safety concerns - Bladder and Bowel Bladder continence 0-Always continent Bowel continence 0-Always continent - Endurance Fair - Balance Fair - Safety Awareness Fair POTENTIAL FUNCTIONAL GOALS FOR PATIENT TO ACHIEVE BY DISCHARGE: - Safety Precaution Patient will remain free from falls or injury at time of discharge. - Bed Mobility Patient will perform bed mobility at 4-Iraida level of assistance. - Transfers Patient will complete transfers from bed to chair at 4-Iraida level of assistance. - Mobility Patient will ambulate 150 ft with 4-Iraida level of assistance with RW. PATIENT REHAB POTENTIAL Mando CORTES is able and expected to receive 3 hours of individualized therapy daily on at least 5 of ev salvador 7 days Mando MARSHALLs prognosis for significant practical improvement within a reasonable period of time appear s Good Expected level of measurable improvement will be of a practical value to Mando CORTES's functional capac ity or adaptations to impairments Has a viable Discharge Plan Medically appropriate; condition is sufficiently stable to participate in intensive rehab program DISCHARGE PLAN: - Estimated Length of Stay (days) 10. - Consensus on plan Discharge plan has been discussed with primary caregiver. Patient/Family is in agreement with the larry n. Primary caregiver is in agreement with the plan. - Patient/Family Goals Return home independently. - Planned Living Setting Upon Discharge Home, to live with Family/Relatives. Transitional Living. CONCLUSION ON REHABILITATION NECESSITY: I have evaluated patient's pre-admission functional status and, comparing it to the patient's post-ad mission functional status now, I conclude that the pre-admission assessment was accurate. Patient's c ondition on admission supports the medical necessity of admission to [facility]. It is safe to proceed with patient's therapy program. SIGNATURE PANEL: (CDT)
[2019-06-23] MEDS: ATORVASTATIN 40 MG TAB PO SCH (20:38)
[2019-06-24] MEDS: METOPROLOL TAR 50 MG TAB PO SCH ×2 (05:20→17:10)
[2019-06-24] MEDS: ENOXAPARIN 40 MG/0.4 ML SQ SCH (06:20)
[2019-06-24] MEDS: FOLIC ACID 1 MG TABLET PO SCH (08:55)
[2019-06-24] MEDS: AMOX/K CLAV 500 MG TAB PO SCH (08:55)
[2019-06-24] MEDS: ASPIRIN EC 81 MG TAB PO SCH (08:55)
[2019-06-24] MEDS: levETIRAcetam 500 MG TAB PO SCH ×2 (08:55→20:57)
[2019-06-24] MEDS: lisinopriL 10 MG TAB PO SCH ×2 (08:55→20:58)
--- NOTE | 2019-06-24 16:42 | R.PN ---
ENCOUNTER DATE AND TIME: 06/24/2019 16:29 (CDT) NAME ALEXANDRIA CORTES DATE OF : 1940 DATE OF ADMISSION: 06/22/2019 14:41 (CDT) CHFCHIEF COMPLAINT: CHF exacerbation and debility SUBJECTIVE: Pt denied any depression. Pt denied any Shortness of Breath. WBC 6.0, Hgb 13.5, prealbumin 15.4, UA and culture are negative. Ambulated 750' with standby to contact guard assistance using a rolling walker. VITAL SIGNS Temperature: 97.7 F SBP/DBP: 131/64 Pulse: 60 Resp: 14 MEDICATION ALLERGIES: No Known Drug Allergies (NKDA) ENVIRONMENTAL ALLERGIES: - Substance Allergies None Known - Other Allergies None Known NURSING: - Shower allowing shower ACTIVITIES OOB only with supervision THERAPIES: - Dietary and Nutrition Adequate Nutrition. Nutritional Education. Nutritional Supplements. PHYSICAL EXAM - Gen Alert and awake Lying in bed No apparent distress Oriented to: person, time, and place - Skin No skin breakdown. No abnormalities - Eyes No abnormalities - ENMT No abnormalities - Neck No abnormalities - CVS RRR - Chest mild decrease in breath sounds - Resp No wheezing - Abd Soft - GI Non distended Deferred - No abnormalities - Ext No significant edema - MSK 4/5 weakness in both lower extremities. - Neuro No focal deficits - Psych No abnormalities ASSESSMENT: Pt. is a 78 yo Right-handed white female.On 06/17/2019 she was admitted to [facility] wi th diagnosis CHF.Her impairment category is Cardiac 09 - Cardiac Disorders (09).Pre-morbidly, Pt. wa s independent/mod-I in Locomotion, Balance, Safety Awareness, Social Cognition, Transfers Control, an d Self-Care; and she had good Locomotion, Safety Awareness, Social Cognition, Transfers Control, Sphi ncter Control, and Self-Care.Currently, she has deficits of Safety Awareness, Balance, Self-Care, Loc omotion, Transfers Control, and Endurance.Pt. is now referred to [facility] fo r acute in-patient rehabilitation in order to maximize patient's functional independence in activitie s of daily living, strength, ROM, and mobility.- Rehab Goal Patient has realistic goal of being discharged at assistance level 3-modA to reside at Home with Fam belle/Relatives. MDM/PLAN: - Physical Therapy Gait dysfunction - to improve, our physical therapists will perform initial evaluation of pt's statu s upon admission and devise an individualized program for Gait Training, and Wheel Chair mobility Inability to transfer - to improve, our physical therapists will perform initial evaluation of pt's status upon admission and devise an individualized program for Bed mobility Need for home safety evaluation - to improve, our physical therapists will perform initial evaluatio n of pt's status upon admission and devise an individualized program for Home Evaluation Need in caregiver upon discharge - to improve, our physical therapists will perform initial evaluati on of pt's status upon admission and devise an individualized program for Caregiver Training Edema - to improve, our physical therapists will perform initial evaluation of pt's status upon admis liya and devise an individualized program for Elevation Training, and Lymphedema Therapy New precaution - to improve, our physical therapists will perform initial evaluation of pt's status upon admission and devise an individualized program for Patient precaution education Poor balance - to improve, our physical therapists will perform initial evaluation of pt's status up on admission and devise an individualized program for Balance Training Poor endurance - to improve, our physical therapists will perform initial evaluation of pt's status upon admission and devise an individualized program for Endurance Training Weakness - to improve, our physical therapists will perform initial evaluation of pt's status upon a dmission and devise an individualized program for Aquatic Therapy, Neuromuscular Reeducation, and Str engthening Achieving independence - to improve, our physical therapists will perform initial evaluation of pt's status upon admission and devise an individualized program for Community Reintegration Activities - Occupational Therapy ADL deficits - to improve, our occupation therapists will perform initial evaluation of pt's status upon admission and devise an individualized program for Bathing, Bed mobility, Community Reintegratio n, Cooking, Dressing, Eating, Fine Motor Skills, Grooming, Homemaking, Kitchen Mobility, Laundry, Pat ient Education, Safety Awareness, Splinting - Positioning, Transfers(Toilet, Tub, Shower), and Wheel Chair Management Need for laboratory animal care veterinarian - to improve, our occupation therapists will perform initial evaluation of pt's status upon admission and devise an individualized program for Caregiver Training Weakness - to improve, our occupation therapists will perform initial evaluation of pt's status upon admission and devise an individualized program for Aquatic Therapy, Balance, Endurance, UE ROM, and UE strengthening - Other See attached MAR (Medication Administration Record) - Diet Type Continue Regular - Diet - Liquid Texture Continue Regular - Tube Feed Continue N/A - Diet - Solid Texture Continue Regular - Shower allowing shower FUNCTIONAL STATUS: UPDATED AT WEEKLY TEAM CONFERENCE - Bladder Same accident frequency: 7-Ind - No accidents in the past 7 days - Bowel Same accident frequency: 7-Ind - No accidents in the past 7 days - Walking Same score based on distance walked: 0(N/A) Same score based on distance walked: 3(>=150ft) - Wheelchair Same score based on distance traveled: 0(N/A) FUNCTIONAL STATUS: - Self-Care A. Eating Iraida B. Grooming sup C. Bathing Iraida D. Dressing - Upper sup E. Dressing - Lower Iraida F. Toileting Iraida - Sphincter Control G. Bladder control Alejandro H. Bowel control Alejandro - Transfers Control I. Bed/Chair/Wheelchair sup J. Toilet sup K. Tub/Shower [place] - Locomotion L. Walk/Wheelchair (B) sup M. Stairs sup - Communication N. Comprehension (B) sup O. Expression (B) sup - Social Cognition P. Social Interaction Alejandro Q. Problem Solving Iraida R. Memory Iraida - Endurance Fair - Balance Fair - Safety Awareness Fair QI SCORES: - Self-Care A. Eating 03-Partial/moderate assistance B. Oral hygiene 03-Partial/moderate assistance C. Toileting hygiene 03-Partial/moderate assistance E. Shower/bathe self 03-Partial/moderate assistance F. Upper body dressing 03-Partial/moderate assistance G. Lower body dressing 03-Partial/moderate assistance H. Putting on/taking off footwear 88-Not attempted due to medical condition or safety concerns - Mobility B. Sit to lying 03-Partial/moderate assistance C. Lying to sitting on side of bed 03-Partial/moderate assistance D. Sit to stand 03-Partial/moderate assistance E. Chair/jkg-ju-ujqeu transfer 03-Partial/moderate assistance F. Toilet transfer 03-Partial/moderate assistance G. Car transfer 88-Not attempted due to medical condition or safety concerns I. Walk 10 feet 03-Partial/moderate assistance J. Walk 50 feet with two turns 88-Not attempted due to medical condition or safety concerns K. Walk 150 feet 88-Not attempted due to medical condition or safety concerns L. Walking 10 feet on uneven surfaces 88-Not attempted due to medical condition or safety concerns M. 1 step (curb) 88-Not attempted due to medical condition or safety concerns N. 4 steps 88-Not attempted due to medical condition or safety concerns O. 12 steps 88-Not attempted due to medical condition or safety concerns P. Picking up object 06-Independent R. Wheel 50 feet with two turns 88-Not attempted due to medical condition or safety concerns S. Wheel 150 feet 88-Not attempted due to medical condition or safety concerns - Bladder and Bowel Bladder continence 0-Always continent Bowel continence 0-Always continent - Endurance Fair - Balance Fair - Safety Awareness Fair [facility]IC[facility]: Self-Care, Mobility, Endurance, Balance, and Safety Awareness SIGNATURE PANEL: (CDT)
[2019-06-24] MEDS: ATORVASTATIN 40 MG TAB PO SCH (20:57)
[2019-06-24] MEDS: TRAZODONE 50 MG TABLET PO PRN (20:58)
[2019-06-25] MEDS: METOPROLOL TAR 50 MG TAB PO SCH ×2 (05:18→16:58)
[2019-06-25 05:57] LABS: Absolute Lymphocytes (CBC) 1.6 K/uL (0.7-4.9); Basophils % 0.8 % (0-1.3); Hematocrit 40.2 % (36.0-45.0); Lymphocytes % 27.7 % (15.3-44.8); MPV 9.4 fL (7.6-11.3); RBC Red Blood Cell Count 4.88 M/uL (3.86-4.86)
[2019-06-25 06:13] LABS: Albumin 3.1 g/dL (3.4-5.0); Magnesium 2.1 mg/dL (1.8-2.4); Potassium 4.7 mmol/L (3.5-5.1)
[2019-06-25] MEDS: lisinopriL 10 MG TAB PO SCH ×2 (06:15→20:33)
[2019-06-25] MEDS: ENOXAPARIN 40 MG/0.4 ML SQ SCH (06:16)
[2019-06-25] MEDS ORDERED: cloNIDine HCL 0.1 MG TAB PO PRN (06:35)
[2019-06-25] MEDS: FOLIC ACID 1 MG TABLET PO SCH (09:08)
[2019-06-25] MEDS: ASPIRIN EC 81 MG TAB PO SCH (09:08)
[2019-06-25] MEDS: levETIRAcetam 500 MG TAB PO SCH ×2 (09:08→20:34)
--- NOTE | 2019-06-25 12:54 | FAST ---
ENCOUNTER DATE AND TIME: 06/25/2019 08:00 (CDT) NAME ALEXANDRIA CORTES DATE OF : 1940 DATE OF ADMISSION: 06/22/2019 14:41 (CDT) PHONE: AGE: 78 SSN# [id number] GENDER: Female ENCOUNTER PHYSICIAN: Dr. Richard Cai M.D. ADMISSION DIAGNOSIS: - Cardiac 09 - Cardiac Disorders () CHF. EATING: Not assessed/no information CODE: - ORAL HYGIENE: ORAL HYGIENE - STEP 1: Does the patient complete the activity by him/herself with no assistance (physical, verbal/nonverbal cueing, setup/clean-up)? No. ORAL HYGIENE - STEP 2: Does the patient need only setup/clean-up assistance from one helper? No. ORAL HYGIENE - STEP 3: Does the patient need only verbal/nonverbal cueing or touching/steadying/contact guard assistance fro m one helper? Yes. 1. [id number] ADMISSION PERFORMANCE: Supervision or touching assistance CODE: 04 TOILETING HYGIENE: TOILETING HYGIENE - STEP 1: Does the patient complete the activity by him/herself with no assistance (physical, verbal/nonverbal cueing, setup/clean-up)? No. TOILETING HYGIENE - STEP 2: Does the patient need only setup/clean-up assistance from one helper? No. TOILETING HYGIENE - STEP 3: Does the patient need only verbal/nonverbal cueing or touching/steadying/contact guard assistance fro m one helper? Yes. 1. [id number] ADMISSION PERFORMANCE: Supervision or touching assistance CODE: 04 BATHING: SHOWER/BATHE SELF - STEP 1: Does the patient complete the activity by him/herself with no assistance (physical, verbal/nonverbal cueing, setup/clean-up)? No. SHOWER/BATHE SELF - STEP 2: Does the patient need only setup/clean-up assistance from one helper? No. SHOWER/BATHE SELF - STEP 3: Does the patient need only verbal/nonverbal cueing or touching/steadying/contact guard assistance fro m one helper? Yes. 1. [id number] ADMISSION PERFORMANCE: Supervision or touching assistance CODE: 04 DRESSING - UPPER BODY: DRESSING - UPPER BODY - STEP 1: Does the patient complete the activity by him/herself with no assistance (physical, verbal/nonverbal cueing, setup/clean-up)? No. DRESSING - UPPER BODY - STEP 2: Does the patient need only setup/clean-up assistance from one helper? No. DRESSING - UPPER BODY - STEP 3: Does the patient need only verbal/nonverbal cueing or touching/steadying/contact guard assistance fro m one helper? Yes. 1. [id number] ADMISSION PERFORMANCE: Supervision or touching assistance CODE: 04 DRESSING - LOWER BODY: DRESSING - LOWER BODY - STEP 1: Does the patient complete the activity by him/herself with no assistance (physical, verbal/nonverbal cueing, setup/clean-up)? No. DRESSING - LOWER BODY - STEP 2: Does the patient need only setup/clean-up assistance from one helper? No. DRESSING - LOWER BODY - STEP 3: Does the patient need only verbal/nonverbal cueing or touching/steadying/contact guard assistance fro m one helper? Yes. 1. [id number] ADMISSION PERFORMANCE: Supervision or touching assistance CODE: 04 PUTTING ON/TAKING OFF FOOTWEAR: FOOTWEAR - STEP 1: Does the patient complete the activity by him/herself with no assistance (physical, verbal/nonverbal cueing, setup/clean-up)? No. FOOTWEAR - STEP 2: Does the patient need only setup/clean-up assistance from one helper? No. FOOTWEAR - STEP 3: Does the patient need only verbal/nonverbal cueing or touching/steadying/contact guard assistance fro m one helper? Yes. 1. [id number] ADMISSION PERFORMANCE: Supervision or touching assistance CODE: 04 DOES THE PATIENT USE A WHEELCHAIR/SCOOTER? CODE: EXPR INDICATE THE TYPE OF WHEELCHAIR/SCOOTER USED: CODE: EXPR INDICATE THE TYPE OF WHEELCHAIR/SCOOTER USED: CODE: EXPR BLADDER AND BOWEL: CODE: EXPR CODE: EXPR SIGNATURE PANEL: The following modified sections: 1. [id number] Admission Performance, 1. [id number] Admission Performance, 1. [id number] Admission Performance, 1. [id number] Admission Performance, 1. [id number] Admission Performance, 1. [id number] Admission Performance were [electronically] signed by JOHN Coyne on SatJun 25 2019 12:54:14 GMT-0500 (Central Daylight Time)
--- NOTE | 2019-06-25 13:13 | FAST ---
ENCOUNTER DATE AND TIME: 06/25/2019 08:00 (CDT) NAME ALEXANDRIA CORTES DATE OF : 1940 DATE OF ADMISSION: 06/22/2019 14:41 (CDT) PHONE: AGE: 78 N# [id number] GENDER: Female ENCOUNTER PHYSICIAN: Dr. Richard Cai M.D. ADMISSION DIAGNOSIS: - Cardiac 09 - Cardiac Disorders () CHF. ROLL LEFT AND RIGHT: ROLL LEFT AND RIGHT - STEP 1: Does the patient complete the activity by him/herself with no assistance (physical, verbal/nonverbal cueing, setup/clean-up)? Yes. 1. [id number] ADMISSION PERFORMANCE: Independent CODE: 06 SIT TO LYING: SIT TO LYING - STEP 1: Does the patient complete the activity by him/herself with no assistance (physical, verbal/nonverbal cueing, setup/clean-up)? Yes. 1. [id number] ADMISSION PERFORMANCE: Independent CODE: 06 LYING TO SITTING: LYING TO SITTING ON SIDE OF BED - STEP 1: Does the patient complete the activity by him/herself with no assistance (physical, verbal/nonverbal cueing, setup/clean-up)? Yes. 1. [id number] ADMISSION PERFORMANCE: Independent CODE: 06 SIT TO STAND: SIT TO STAND - STEP 1: Does the patient complete the activity by him/herself with no assistance (physical, verbal/nonverbal cueing, setup/clean-up)? No. SIT TO STAND - STEP 2: Does the patient need only setup/clean-up assistance from one helper? Yes. 1. [id number] ADMISSION PERFORMANCE: Setup or clean-up assistance CODE: 05 TRANSFERS: BED, CHAIR: CHAIR/[id number] TRANSFER - STEP 1: Does the patient complete the activity by him/herself with no assistance (physical, verbal/nonverbal cueing, setup/clean-up)? No. CHAIR/[id number] TRANSFER - STEP 2: Does the patient need only setup/clean-up assistance from one helper? Yes. 1. [id number] ADMISSION PERFORMANCE: Setup or clean-up assistance CODE: 05 TRANSFER TOILET: TOILET TRANSFER - STEP 1: Does the patient complete the activity by him/herself with no assistance (physical, verbal/nonverbal cueing, setup/clean-up)? No. TOILET TRANSFER - STEP 2: Does the patient need only setup/clean-up assistance from one helper? Yes. 1. [id number] ADMISSION PERFORMANCE: Setup or clean-up assistance CODE: 05 TRANSFERS: CAR: Not attempted due to medical condition or safety concerns CODE: 88 WALK 10 FEET: WALK 10 FEET - STEP 1: Does the patient complete the activity by him/herself with no assistance (physical, verbal/nonverbal cueing, setup/clean-up)? No. WALK 10 FEET - STEP 2: Does the patient need only setup/clean-up assistance from one helper? No. WALK 10 FEET - STEP 3: Does the patient need only verbal/nonverbal cueing or touching/steadying/contact guard assistance fro m one helper? Yes. 1. [id number] ADMISSION PERFORMANCE: Supervision or touching assistance CODE: WALK 50 FEET: WALK 50 FEET - STEP 1: Does the patient complete the activity by him/herself with no assistance (physical, verbal/nonverbal cueing, setup/clean-up)? No. WALK 50 FEET - STEP 2: Does the patient need only setup/clean-up assistance from one helper? No. WALK 50 FEET - STEP 3: Does the patient need only verbal/nonverbal cueing or touching/steadying/contact guard assistance fro m one helper? Yes. 1. [id number] ADMISSION PERFORMANCE: Supervision or touching assistance CODE: WALK 150 FEET: WALK 150 FEET - STEP 1: Does the patient complete the activity by him/herself with no assistance (physical, verbal/nonverbal cueing, setup/clean-up)? No. WALK 150 FEET - STEP 2: Does the patient need only setup/clean-up assistance from one helper? No. WALK 150 FEET - STEP 3: Does the patient need only verbal/nonverbal cueing or touching/steadying/contact guard assistance fro m one helper? Yes. 1. [id number] ADMISSION PERFORMANCE: Supervision or touching assistance CODE: WALK 10 FEET UNEVEN: Not attempted due to medical condition or safety concerns CODE: 88 1 STEP (CURB): Not attempted due to medical condition or safety concerns CODE: 88 PICKING UP OBJECT: Not attempted due to medical condition or safety concerns CODE: 88 DOES THE PATIENT USE A WHEELCHAIR/SCOOTER? Q1. DOES THE PATIENT USE A WHEELCHAIR/SCOOTER?: Yes CODE: 1 WHEEL 50 FEET WITH TWO TURNS: WHEEL 50 FEET WITH TWO TURNS - STEP 1: Does the patient complete the activity by him/herself with no assistance (physical, verbal/nonverbal cueing, setup/clean-up)? No. WHEEL 50 FEET WITH TWO TURNS - STEP 2: Does the patient need only setup/clean-up assistance from one helper? Yes. 1. [id number] ADMISSION PERFORMANCE: Setup or clean-up assistance CODE: 05 INDICATE THE TYPE OF WHEELCHAIR/SCOOTER USED: RR1. INDICATE THE TYPE OF WHEELCHAIR/SCOOTER USED.: Manual CODE: 1 WHEEL 150 FEET: WHEEL 150 FEET - STEP 1: Does the patient complete the activity by him/herself with no assistance (physical, verbal/nonverbal cueing, setup/clean-up)? No. WHEEL 150 FEET - STEP 2: Does the patient need only setup/clean-up assistance from one helper? Yes. 1. [id number] ADMISSION PERFORMANCE: Setup or clean-up assistance CODE: 05 INDICATE THE TYPE OF WHEELCHAIR/SCOOTER USED: SS1. INDICATE THE TYPE OF WHEELCHAIR/SCOOTER USED.: Manual CODE: 1 BLADDER AND BOWEL: CODE: EXPR CODE: EXPR SIGNATURE PANEL: The following modified sections: 1. [id number] Admission Performance, 1. [id number] Admission Performance, 1. [id number] Admission Performance, 1. [id number] Admission Performance, 1. [id number] Admission Performance, 1. [id number] Admission Performance, 1. [id number] Admission Performance, 1. [id number] Admission Performance , 1. [id number] Admission Performance, Q1. Does the patient use a wheelchair/scooter?, 1. [id number] Admiss ion Performance, RR1. Indicate the type of wheelchair/scooter used., 1. [id number] Admission Performance , Code, SS1. Indicate the type of wheelchair/scooter used. were [electronically] signed by Chelsea barrett PTA on SatJun 25 2019 13:12:36 GMT-0500 (Central Daylight Time)
--- NOTE | 2019-06-25 14:41 | EKG ---
Test Date: 2019-06-25 Test Time: 08:49:45 [employer]: JAY MEASUREMENT RESULTS: Intervals: Rate: 60 RI: 168 QRSD: 112 QT: 472 QTc: 472 [place]: P: 48 RI: 168 QRS: -25 T: 167 INTERPRETIVE STATEMENTS: Normal sinus rhythm Incomplete left bundle branch block Left ventricular hypertrophy with repolarization abnormality Abnormal ECG Compared to ECG 06/19/2019 08:31:35 Left bundle-branch block now present Atrial premature complex(es) no longer present Left-axis deviation no longer present Prolonged QT interval no longer present Electronically Signed On 06-25-19 14:41:01 CDT by Blayne Hammer
--- NOTE | 2019-06-25 17:55 | R.PN ---
ENCOUNTER DATE AND TIME: 06/25/2019 17:51 (CDT) NAME ALEXANDRIA CORTES DATE OF : 1940 DATE OF ADMISSION: 06/22/2019 14:41 (CDT) CHFCHIEF COMPLAINT: CHF exacerbation and debility SUBJECTIVE: Pt denied any depression. Pt denied any Shortness of Breath. WBC 5.6, Hgb 12.9, prealbumin 16.0, UA and culture are negative. Ambulated 750' with contact guard assistance using a rolling walker. VITAL SIGNS Temperature: 97.7 F SBP/DBP: 151/63 Pulse: 59 Resp: 16 MEDICATION ALLERGIES: No Known Drug Allergies (NKDA) ENVIRONMENTAL ALLERGIES: - Substance Allergies None Known - Other Allergies None Known NURSING: - Shower allowing shower ACTIVITIES OOB only with supervision THERAPIES: - Dietary and Nutrition Adequate Nutrition. Nutritional Education. Nutritional Supplements. PHYSICAL EXAM - Gen Alert and awake Lying in bed No apparent distress Oriented to: person, time, and place - Skin No skin breakdown. No abnormalities - Eyes No abnormalities - ENMT No abnormalities - Neck No abnormalities - CVS RRR - Chest mild decrease in breath sounds - Resp No wheezing - Abd Soft - GI Non distended Deferred - No abnormalities - Ext No significant edema - MSK 4/5 weakness in both lower extremities. - Neuro No focal deficits - Psych No abnormalities ASSESSMENT: Pt. is a 78 yo Right-handed white female.On 06/17/2019 she was admitted to [facility] wi th diagnosis CHF.Her impairment category is Cardiac 09 - Cardiac Disorders (09).Pre-morbidly, Pt. wa s independent/mod-I in Locomotion, Balance, Safety Awareness, Social Cognition, Transfers Control, an d Self-Care; and she had good Locomotion, Safety Awareness, Social Cognition, Transfers Control, Sphi ncter Control, and Self-Care.Currently, she has deficits of Safety Awareness, Balance, Self-Care, Loc omotion, Transfers Control, and Endurance.Pt. is now referred to [facility] fo r acute in-patient rehabilitation in order to maximize patient's functional independence in activitie s of daily living, strength, ROM, and mobility.- Rehab Goal Patient has realistic goal of being discharged at assistance level 3-modA to reside at Home with Fam belle/Relatives. MDM/PLAN: - Physical Therapy Gait dysfunction - to improve, our physical therapists will perform initial evaluation of pt's statu s upon admission and devise an individualized program for Gait Training, and Wheel Chair mobility Inability to transfer - to improve, our physical therapists will perform initial evaluation of pt's status upon admission and devise an individualized program for Bed mobility Need for home safety evaluation - to improve, our physical therapists will perform initial evaluatio n of pt's status upon admission and devise an individualized program for Home Evaluation Need in caregiver upon discharge - to improve, our physical therapists will perform initial evaluati on of pt's status upon admission and devise an individualized program for Caregiver Training Edema - to improve, our physical therapists will perform initial evaluation of pt's status upon admi ssion and devise an individualized program for Elevation Training, and Lymphedema Therapy New precaution - to improve, our physical therapists will perform initial evaluation of pt's status upon admission and devise an individualized program for Patient precaution education Poor balance - to improve, our physical therapists will perform initial evaluation of pt's status up on admission and devise an individualized program for Balance Training Poor endurance - to improve, our physical therapists will perform initial evaluation of pt's status upon admission and devise an individualized program for Endurance Training Weakness - to improve, our physical therapists will perform initial evaluation of pt's status upon a dmission and devise an individualized program for Aquatic Therapy, Neuromuscular Reeducation, and Str engthening Achieving independence - to improve, our physical therapists will perform initial evaluation of pt's status upon admission and devise an individualized program for Community Reintegration Activities - Occupational Therapy ADL deficits - to improve, our occupation therapists will perform initial evaluation of pt's status upon admission and devise an individualized program for Bathing, Bed mobility, Community Reintegratio n, Cooking, Dressing, Eating, Fine Motor Skills, Grooming, Homemaking, Kitchen Mobility, Laundry, Pat ient Education, Safety Awareness, Splinting - Positioning, Transfers(Toilet, Tub, Shower), and Wheel Chair Management Need for child adolescent care - to improve, our occupation therapists will perform initial evaluation of pt's status upon admission and devise an individualized program for Caregiver Training Weakness - to improve, our occupation therapists will perform initial evaluation of pt's status upon admission and devise an individualized program for Aquatic Therapy, Balance, Endurance, UE ROM, and UE strengthening - Other See attached MAR (Medication Administration Record) - Diet Type Continue Regular - Diet - Liquid Texture Continue Regular - Tube Feed Continue N/A - Diet - Solid Texture Continue Regular - Shower allowing shower FUNCTIONAL STATUS: UPDATED AT WEEKLY TEAM CONFERENCE - Bladder Same accident frequency: 7-Ind - No accidents in the past 7 days - Bowel Same accident frequency: 7-Ind - No accidents in the past 7 days - Walking Same score based on distance walked: 0(N/A) Same score based on distance walked: 3(>=150ft) - Wheelchair Same score based on distance traveled: 0(N/A) FUNCTIONAL STATUS: - Self-Care A. Eating Iraida B. Grooming sup C. Bathing Iraida D. Dressing - Upper sup E. Dressing - Lower Iraida F. Toileting Iraida - Sphincter Control G. Bladder control Alejandro H. Bowel control Alejandro - Transfers Control I. Bed/Chair/Wheelchair sup J. Toilet sup K. Tub/Shower Iraida - Locomotion L. Walk/Wheelchair (B) sup M. Stairs sup - Communication N. Comprehension (B) sup O. Expression (B) sup - Social Cognition P. Social Interaction Alejandro Q. Problem Solving Iraida R. Memory Iraida - Endurance Fair - Balance Fair - Safety Awareness Fair QI SCORES: - Self-Care A. Eating 03-Partial/moderate assistance B. Oral hygiene 03-Partial/moderate assistance C. Toileting hygiene 03-Partial/moderate assistance E. Shower/bathe self 03-Partial/moderate assistance F. Upper body dressing 03-Partial/moderate assistance G. Lower body dressing 03-Partial/moderate assistance H. Putting on/taking off footwear 88-Not attempted due to medical condition or safety concerns - Mobility B. Sit to lying 03-Partial/moderate assistance C. Lying to sitting on side of bed 03-Partial/moderate assistance D. Sit to stand 03-Partial/moderate assistance E. Chair/jmf-hv-[id number] transfer 03-Partial/moderate assistance F. Toilet transfer 03-Partial/moderate assistance G. Car transfer 88-Not attempted due to medical condition or safety concerns I. Walk 10 feet 03-Partial/moderate assistance J. Walk 50 feet with two turns 88-Not attempted due to medical condition or safety concerns K. Walk 150 feet 88-Not attempted due to medical condition or safety concerns L. Walking 10 feet on uneven surfaces 88-Not attempted due to medical condition or safety concerns M. 1 step (curb) 88-Not attempted due to medical condition or safety concerns N. 4 steps 88-Not attempted due to medical condition or safety concerns O. 12 steps 88-Not attempted due to medical condition or safety concerns P. Picking up object 06-Independent R. Wheel 50 feet with two turns 88-Not attempted due to medical condition or safety concerns S. Wheel 150 feet 88-Not attempted due to medical condition or safety concerns - Bladder and Bowel Bladder continence 0-Always continent Bowel continence 0-Always continent - Endurance Fair - Balance Fair - Safety Awareness Fair [facility] DEFICITS: Self-Care, Mobility, Endurance, Balance, and Safety Awareness SIGNATURE PANEL: (CDT)
[2019-06-25] MEDS: ATORVASTATIN 40 MG TAB PO SCH (20:34)
[2019-06-25] MEDS: TRAZODONE 50 MG TABLET PO PRN (20:34)
[2019-06-25] MEDS: MELATONIN 3 MG TABLET PO PRN (20:34)
[2019-06-25] MEDS: DOCUSATE NA/SENNA CONC 1 TAB PO PRN (20:34)
[2019-06-26] MEDS: METOPROLOL TAR 50 MG TAB PO SCH ×2 (05:21→17:10)
[2019-06-26] MEDS: ENOXAPARIN 40 MG/0.4 ML SQ SCH (06:38)
[2019-06-26] MEDS: lisinopriL 10 MG TAB PO SCH ×2 (09:12→20:02)
[2019-06-26] MEDS: ASPIRIN EC 81 MG TAB PO SCH (09:12)
[2019-06-26] MEDS: levETIRAcetam 500 MG TAB PO SCH ×2 (09:12→20:02)
[2019-06-26] MEDS: FOLIC ACID 1 MG TABLET PO SCH (09:12)
--- NOTE | 2019-06-26 10:02 | P.RH.PN ---
Estimated Length of Stay: 11 Expected Discharge Date: 07/02/19 Vital Signs: Last Vital Signs Temp 97.1 F 06/26/19 08:00 Pulse 60 06/26/19 09:12 Resp 16 06/26/19 08:00 BP 144/75 H 06/26/19 09:12 Pulse Ox 98 06/26/19 08:00 Laboratory: Laboratory Last Values WBC 5.6 K/uL (4.3-10.9) 06/25/19 05:30 RBC 4.88 M/uL (3.86-4.86) H 06/25/19 05:30 Hgb 12.9 g/dL (12.0-15.0) 06/25/19 05:30 Hct 40.2 % (36.0-45.0) 06/25/19 05:30 MCV 82.3 fL (80-100) 06/25/19 05:30 MCH 26.4 pg (27.0-35.0) L 06/25/19 05:30 MCHC 32.1 g/dL (32.0-36.0) 06/25/19 05:30 RDW 13.7 % (12.1-15.2) 06/25/19 05:30 Plt Count 186 K/uL (152-406) D 06/25/19 05:30 MPV 9.4 fL (7.6-11.3) 06/25/19 05:30 Neutrophils % 57.2 % (41.7-73.7) 06/25/19 05:30 Lymphocytes % 27.7 % (15.3-44.8) 06/25/19 05:30 Monocytes % 12.2 % (3.3-12.3) 06/25/19 05:30 Eosinophils % 2.1 % (0-4.4) 06/25/19 05:30 Basophils % 0.8 % (0-1.3) 06/25/19 05:30 Absolute Neutrophils 3.2 K/uL (1.8-8.0) 06/25/19 05:30 Absolute Lymphocytes 1.6 K/uL (0.7-4.9) 06/25/19 05:30 Absolute Monocytes 0.7 K/uL (0.1-1.3) 06/25/19 05:30 Absolute Eosinophils 0.1 K/uL (0-0.5) 06/25/19 05:30 Absolute Basophils 0.0 K/uL (0-0.5) 06/25/19 05:30 pH Cancelled 06/25/19 06:20 pCO2 Cancelled 06/25/19 06:20 pO2 Cancelled 06/25/19 06:20 HCO3 Cancelled 06/25/19 06:20 Base Excess Cancelled 06/25/19 06:20 Oxyhemoglobin Cancelled 06/25/19 06:20 ABG O2 Sat (Measured) Cancelled 06/25/19 06:20 ABG Carboxyhemoglobin Cancelled 06/25/19 06:20 ABG Methemoglobin Cancelled 06/25/19 06:20 Other Total Hgb Cancelled 06/25/19 06:20 Inspired O2 Cancelled 06/25/19 06:20 Sodium 138 mmol/L (136-145) 06/25/19 05:30 Potassium 4.7 mmol/L (3.5-5.1) 06/25/19 05:30 Chloride 105 mmol/L (98-107) 06/25/19 05:30 Carbon Dioxide 28 mmol/L (21-32) 06/25/19 05:30 BUN 22 mg/dL (7-18) H 06/25/19 05:30 Creatinine 1.04 mg/dL (0.55-1.3) 06/25/19 05:30 Estimated GFR 51 mL/min (=/>90) L 06/25/19 05:30 Glucose 97 mg/dL (74-106) 06/25/19 05:30 Calcium 8.5 mg/dL (8.5-10.1) 06/25/19 05:30 Magnesium 2.1 mg/dL (1.8-2.4) 06/25/19 05:30 Albumin 3.1 g/dL (3.4-5.0) L 06/25/19 05:30 Prealbumin 16.0 mg/dL (20-40) L 06/25/19 05:30 Urine Color Yellow 06/22/19 17:20 Urine Appearance Clear 06/22/19 17:20 Urine pH 7.0 (5.0-7.0) 06/22/19 17:20 Ur Specific Eldridge 1.015 (1.005-1.030) 06/22/19 17:20 Glucose (UA)(Auto) Negative (NEG) 06/22/19 17:20 Urine Ketones Trace (NEG) 06/22/19 17:20 Urine Blood Negative (NEG) 06/22/19 17:20 Urine Nitrite Negative (NEG) 06/22/19 17:20 Urine Bilirubin Negative (NEG) 06/22/19 17:20 Urine Urobilinogen 1.0 mg/dL (0.2-1.0) 06/22/19 17:20 Ur Leukocyte Esterase Negative (NEG) 06/22/19 17:20 Urine RBC <5 /HPF (NONE SEEN) 06/22/19 17:20 Urine WBC <5 /HPF (<5) 06/22/19 17:20 Ur Squamous Epith Cells 5-10 /HPF (NONE SEEN) H 06/22/19 17:20 Urine Bacteria <20 /HPF (<20) 06/22/19 17:20 Urine Mucus 1+ /HPF (NONE SEEN) 06/22/19 17:20 Urine Culture Reflexed Not needed 06/22/19 17:20 Urine Total Protein Negative (NEG) 06/22/19 17:20 Weight: 134 lb 6.4 oz Wound Present: No Closed Surgical Incision Present: No Negative Pressure Wound Therapy Present: No Physician Update: Labs reviewed and are stable. She still has hallucinations and hearing children speaking at night. She is walking 250' feet and 15 stairs with contact guard assistance. 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 Please see the Rehabilitation Signature page for all necessary signatures.
[2019-06-26] MEDS: CRANBERRY FRUIT EXTRACT 200 MG CAP PO SCH (20:02)
[2019-06-26] MEDS: ATORVASTATIN 40 MG TAB PO SCH (20:03)
[2019-06-26] MEDS: MELATONIN 3 MG TABLET PO PRN (20:03)
[2019-06-26] MEDS: DOCUSATE NA/SENNA CONC 1 TAB PO PRN (20:03)
--- NOTE | 2019-06-27 02:37 | FAST ---
SHIFT START DATE/TIME: 06/26/2019 19:00 (CDT) SHIFT END DATE/TIME: 06/27/2019 07:00 (CDT) NAME ALEXANDRIA CORTES DATE OF : 1940 DATE OF ADMISSION: 06/22/2019 14:41 (CDT) PHONE: AGE: 78 N# [id number] GENDER: Female ENCOUNTER PHYSICIAN: Dr. Richard Cai M.D. ADMISSION DIAGNOSIS: - Cardiac 09 - Cardiac Disorders () CHF. EATING: Not assessed/no information CODE: - ORAL HYGIENE: Not assessed/no information CODE: - TOILETING HYGIENE: TOILETING HYGIENE - STEP 1: Does the patient complete the activity by him/herself with no assistance (physical, verbal/nonverbal cueing, setup/clean-up)? No. TOILETING HYGIENE - STEP 2: Does the patient need only setup/clean-up assistance from one helper? No. TOILETING HYGIENE - STEP 3: Does the patient need only verbal/nonverbal cueing or touching/steadying/contact guard assistance fro m one helper? Yes. 1. [id number] ADMISSION PERFORMANCE: Supervision or touching assistance CODE: 04 BATHING: Not assessed/no information CODE: - DRESSING - UPPER BODY: Not assessed/no information CODE: - DRESSING - LOWER BODY: Not assessed/no information CODE: - PUTTING ON/TAKING OFF FOOTWEAR: Not assessed/no information CODE: - ROLL LEFT AND RIGHT: ROLL LEFT AND RIGHT - STEP 1: Does the patient complete the activity by him/herself with no assistance (physical, verbal/nonverbal cueing, setup/clean-up)? No. ROLL LEFT AND RIGHT - STEP 2: Does the patient need only setup/clean-up assistance from one helper? No. ROLL LEFT AND RIGHT - STEP 3: Does the patient need only verbal/nonverbal cueing or touching/steadying/contact guard assistance fro m one helper? Yes. 1. [id number] ADMISSION PERFORMANCE: Supervision or touching assistance CODE: 04 SIT TO LYING: SIT TO LYING - STEP 1: Does the patient complete the activity by him/herself with no assistance (physical, verbal/nonverbal cueing, setup/clean-up)? No. SIT TO LYING - STEP 2: Does the patient need only setup/clean-up assistance from one helper? No. SIT TO LYING - STEP 3: Does the patient need only verbal/nonverbal cueing or touching/steadying/contact guard assistance fro m one helper? Yes. 1. [id number] ADMISSION PERFORMANCE: Supervision or touching assistance CODE: 04 LYING TO SITTING: LYING TO SITTING ON SIDE OF BED - STEP 1: Does the patient complete the activity by him/herself with no assistance (physical, verbal/nonverbal cueing, setup/clean-up)? No. LYING TO SITTING ON SIDE OF BED - STEP 2: Does the patient need only setup/clean-up assistance from one helper? No. LYING TO SITTING ON SIDE OF BED - STEP 3: Does the patient need only verbal/nonverbal cueing or touching/steadying/contact guard assistance fro m one helper? Yes. 1. [id number] ADMISSION PERFORMANCE: Supervision or touching assistance CODE: 04 SIT TO STAND: SIT TO STAND - STEP 1: Does the patient complete the activity by him/herself with no assistance (physical, verbal/nonverbal cueing, setup/clean-up)? No. SIT TO STAND - STEP 2: Does the patient need only setup/clean-up assistance from one helper? No. SIT TO STAND - STEP 3: Does the patient need only verbal/nonverbal cueing or touching/steadying/contact guard assistance fro m one helper? Yes. 1. [id number] ADMISSION PERFORMANCE: Supervision or touching assistance CODE: 04 TRANSFERS: BED, CHAIR: CHAIR/[id number] TRANSFER - STEP 1: Does the patient complete the activity by him/herself with no assistance (physical, verbal/nonverbal cueing, setup/clean-up)? No. CHAIR/[id number] TRANSFER - STEP 2: Does the patient need only setup/clean-up assistance from one helper? No. CHAIR/[id number] TRANSFER - STEP 3: Does the patient need only verbal/nonverbal cueing or touching/steadying/contact guard assistance fro m one helper? Yes. 1. [id number] ADMISSION PERFORMANCE: Supervision or touching assistance CODE: 04 TRANSFER TOILET: TOILET TRANSFER - STEP 1: Does the patient complete the activity by him/herself with no assistance (physical, verbal/nonverbal cueing, setup/clean-up)? No. TOILET TRANSFER - STEP 2: Does the patient need only setup/clean-up assistance from one helper? No. TOILET TRANSFER - STEP 3: Does the patient need only verbal/nonverbal cueing or touching/steadying/contact guard assistance fro m one helper? Yes. 1. [id number] ADMISSION PERFORMANCE: Supervision or touching assistance CODE: 04 TRANSFERS: CAR: Not assessed/no information CODE: - WALK 10 FEET: Not assessed/no information CODE: - 1 STEP (CURB): Not assessed/no information CODE: - PICKING UP OBJECT: Not assessed/no information CODE: - DOES THE PATIENT USE A WHEELCHAIR/SCOOTER? CODE: EXPR WHEEL 50 FEET WITH TWO TURNS: Not assessed/no information CODE: - INDICATE THE TYPE OF WHEELCHAIR/SCOOTER USED: CODE: EXPR WHEEL 150 FEET: Not assessed/no information CODE: - INDICATE THE TYPE OF WHEELCHAIR/SCOOTER USED: CODE: EXPR BLADDER AND BOWEL: H350. BLADDER CONTINENCE (3-DAY ASSESSMENT PERIOD): Always continent (no documented incontinence) CODE: 0 H400. BOWEL CONTINENCE (3-DAY ASSESSMENT PERIOD): Always continent CODE: 0
[2019-06-27] MEDS: METOPROLOL TAR 50 MG TAB PO SCH ×2 (05:10→16:48)
[2019-06-27] MEDS: ENOXAPARIN 40 MG/0.4 ML SQ SCH (06:35)
[2019-06-27] MEDS: lisinopriL 10 MG TAB PO SCH ×2 (06:35→20:59)
[2019-06-27] MEDS: CRANBERRY FRUIT EXTRACT 200 MG CAP PO SCH ×2 (08:40→20:59)
[2019-06-27] MEDS: FOLIC ACID 1 MG TABLET PO SCH (08:40)
[2019-06-27] MEDS: ASPIRIN EC 81 MG TAB PO SCH (08:40)
[2019-06-27] MEDS: levETIRAcetam 500 MG TAB PO SCH ×2 (08:40→20:00)
--- NOTE | 2019-06-27 12:03 | FAST ---
ENCOUNTER DATE AND TIME: 06/27/2019 08:00 (CDT) NAME ALEXANDRIA CORTES DATE OF : 1940 DATE OF ADMISSION: 06/22/2019 14:41 (CDT) PHONE: AGE: 78 N# [id number] GENDER: Female ENCOUNTER PHYSICIAN: Dr. Richard Cai M.D. ADMISSION DIAGNOSIS: - Cardiac 09 - Cardiac Disorders () CHF. EATING: Not assessed/no information CODE: - ORAL HYGIENE: ORAL HYGIENE - STEP 1: Does the patient complete the activity by him/herself with no assistance (physical, verbal/nonverbal cueing, setup/clean-up)? Yes. 1. [id number] ADMISSION PERFORMANCE: Independent CODE: 06 TOILETING HYGIENE: Not assessed/no information CODE: - BATHING: SHOWER/BATHE SELF - STEP 1: Does the patient complete the activity by him/herself with no assistance (physical, verbal/nonverbal cueing, setup/clean-up)? No. SHOWER/BATHE SELF - STEP 2: Does the patient need only setup/clean-up assistance from one helper? No. SHOWER/BATHE SELF - STEP 3: Does the patient need only verbal/nonverbal cueing or touching/steadying/contact guard assistance fro m one helper? Yes. 1. [id number] ADMISSION PERFORMANCE: Supervision or touching assistance CODE: 04 DRESSING - UPPER BODY: DRESSING - UPPER BODY - STEP 1: Does the patient complete the activity by him/herself with no assistance (physical, verbal/nonverbal cueing, setup/clean-up)? Yes. 1. [id number] ADMISSION PERFORMANCE: Independent CODE: 06 DRESSING - LOWER BODY: DRESSING - LOWER BODY - STEP 1: Does the patient complete the activity by him/herself with no assistance (physical, verbal/nonverbal cueing, setup/clean-up)? No. DRESSING - LOWER BODY - STEP 2: Does the patient need only setup/clean-up assistance from one helper? No. DRESSING - LOWER BODY - STEP 3: Does the patient need only verbal/nonverbal cueing or touching/steadying/contact guard assistance fro m one helper? Yes. 1. [id number] ADMISSION PERFORMANCE: Supervision or touching assistance CODE: 04 PUTTING ON/TAKING OFF FOOTWEAR: FOOTWEAR - STEP 1: Does the patient complete the activity by him/herself with no assistance (physical, verbal/nonverbal cueing, setup/clean-up)? No. FOOTWEAR - STEP 2: Does the patient need only setup/clean-up assistance from one helper? No. FOOTWEAR - STEP 3: Does the patient need only verbal/nonverbal cueing or touching/steadying/contact guard assistance fro m one helper? Yes. 1. [id number] ADMISSION PERFORMANCE: Supervision or touching assistance CODE: 04 DOES THE PATIENT USE A WHEELCHAIR/SCOOTER? CODE: EXPR INDICATE THE TYPE OF WHEELCHAIR/SCOOTER USED: CODE: EXPR INDICATE THE TYPE OF WHEELCHAIR/SCOOTER USED: CODE: EXPR BLADDER AND BOWEL: CODE: EXPR CODE: EXPR SIGNATURE PANEL: The following modified sections: 1. [id number] Admission Performance, 1. [id number] Admission Performance, 1. [id number] Admission Performance, 1. [id number] Admission Performance, 1. [id number] Admission Performance were [electronically] signed by JOHN Coyne on SatJun 27 2019 12:02:53 GMT-0500 (Central Daylight Time)
[2019-06-27] MEDS: ATORVASTATIN 40 MG TAB PO SCH (21:00)
[2019-06-27] MEDS: MELATONIN 3 MG TABLET PO PRN (21:05)
[2019-06-28] MEDS: METOPROLOL TAR 50 MG TAB PO SCH ×2 (05:22→17:24)
[2019-06-28] MEDS: ASPIRIN EC 81 MG TAB PO SCH ×2 (05:25→07:32)
[2019-06-28] MEDS: ENOXAPARIN 40 MG/0.4 ML SQ SCH (07:02)
[2019-06-28] MEDS: levETIRAcetam 500 MG TAB PO SCH ×2 (07:31→20:20)
[2019-06-28] MEDS: lisinopriL 10 MG TAB PO SCH ×2 (07:31→20:20)
[2019-06-28] MEDS: FOLIC ACID 1 MG TABLET PO SCH (07:32)
[2019-06-28] MEDS: CRANBERRY FRUIT EXTRACT 200 MG CAP PO SCH ×2 (07:32→20:20)
[2019-06-28] MEDS: MELATONIN 3 MG TABLET PO PRN (20:20)
[2019-06-28] MEDS: ATORVASTATIN 40 MG TAB PO SCH (20:21)
[2019-06-28] MEDS: TRAZODONE 50 MG TABLET PO PRN (20:21)
[2019-06-29] MEDS: METOPROLOL TAR 50 MG TAB PO SCH ×2 (05:28→17:19)
[2019-06-29] MEDS: ENOXAPARIN 40 MG/0.4 ML SQ SCH (08:52)
[2019-06-29] MEDS: CRANBERRY FRUIT EXTRACT 200 MG CAP PO SCH ×2 (08:52→20:49)
[2019-06-29] MEDS: FOLIC ACID 1 MG TABLET PO SCH (08:53)
[2019-06-29] MEDS: levETIRAcetam 500 MG TAB PO SCH ×2 (08:53→20:49)
[2019-06-29] MEDS: ASPIRIN EC 81 MG TAB PO SCH (08:53)
[2019-06-29] MEDS: lisinopriL 10 MG TAB PO SCH ×2 (08:53→20:50)
--- NOTE | 2019-06-29 14:16 | FAST ---
ENCOUNTER DATE AND TIME: 06/29/2019 08:00 (CDT) NAME ALEXANDRIA CORTES DATE OF : 1940 DATE OF ADMISSION: 06/22/2019 14:41 (CDT) PHONE: AGE: 78 N# [id number] GENDER: Female ENCOUNTER PHYSICIAN: Dr. Richard Cai M.D. ADMISSION DIAGNOSIS: - Cardiac 09 - Cardiac Disorders () CHF. EATING: Not assessed/no information CODE: - ORAL HYGIENE: ORAL HYGIENE - STEP 1: Does the patient complete the activity by him/herself with no assistance (physical, verbal/nonverbal cueing, setup/clean-up)? Yes. 1. [id number] ADMISSION PERFORMANCE: Independent CODE: 06 TOILETING HYGIENE: TOILETING HYGIENE - STEP 1: Does the patient complete the activity by him/herself with no assistance (physical, verbal/nonverbal cueing, setup/clean-up)? Yes. 1. [id number] ADMISSION PERFORMANCE: Independent CODE: 06 BATHING: SHOWER/BATHE SELF - STEP 1: Does the patient complete the activity by him/herself with no assistance (physical, verbal/nonverbal cueing, setup/clean-up)? Yes. 1. [id number] ADMISSION PERFORMANCE: Independent CODE: 06 DRESSING - UPPER BODY: DRESSING - UPPER BODY - STEP 1: Does the patient complete the activity by him/herself with no assistance (physical, verbal/nonverbal cueing, setup/clean-up)? Yes. 1. [id number] ADMISSION PERFORMANCE: Independent CODE: 06 DRESSING - LOWER BODY: DRESSING - LOWER BODY - STEP 1: Does the patient complete the activity by him/herself with no assistance (physical, verbal/nonverbal cueing, setup/clean-up)? Yes. 1. [id number] ADMISSION PERFORMANCE: Independent CODE: 06 PUTTING ON/TAKING OFF FOOTWEAR: FOOTWEAR - STEP 1: Does the patient complete the activity by him/herself with no assistance (physical, verbal/nonverbal cueing, setup/clean-up)? Yes. 1. [id number] ADMISSION PERFORMANCE: Independent CODE: 06 DOES THE PATIENT USE A WHEELCHAIR/SCOOTER? CODE: EXPR INDICATE THE TYPE OF WHEELCHAIR/SCOOTER USED: CODE: EXPR INDICATE THE TYPE OF WHEELCHAIR/SCOOTER USED: CODE: EXPR BLADDER AND BOWEL: CODE: EXPR CODE: EXPR SIGNATURE PANEL: The following modified sections: 1. [id number] Admission Performance, 1. [id number] Admission Performance, 1. [id number] Admission Performance, 1. [id number] Admission Performance, 1. [id number] Admission Performance, 1. [id number] Admission Performance were [electronically] signed by JOHN Coyne on SatJun 29 2019 14:15:33 GMT-0500 (Central Daylight Time)
--- NOTE | 2019-06-29 14:59 | FAST ---
SHIFT START DATE/TIME: 06/29/2019 07:00 (CDT) SHIFT END DATE/TIME: 06/29/2019 19:00 (CDT) NAME ALEXANDRIA CORTES DATE OF : 1940 DATE OF ADMISSION: 06/22/2019 14:41 (CDT) PHONE: AGE: 78 N# [id number] GENDER: Female ENCOUNTER PHYSICIAN: Dr. Richard Cai M.D. ADMISSION DIAGNOSIS: - Cardiac 09 - Cardiac Disorders () CHF. EATING: EATING - STEP 1: Does the patient complete the activity by him/herself with no assistance (physical, verbal/nonverbal cueing, setup/clean-up)? No. EATING - STEP 2: Does the patient need only setup/clean-up assistance from one helper? Yes. 1. [id number] ADMISSION PERFORMANCE: Setup or clean-up assistance CODE: 05 ORAL HYGIENE: ORAL HYGIENE - STEP 1: Does the patient complete the activity by him/herself with no assistance (physical, verbal/nonverbal cueing, setup/clean-up)? No. ORAL HYGIENE - STEP 2: Does the patient need only setup/clean-up assistance from one helper? Yes. 1. [id number] ADMISSION PERFORMANCE: Setup or clean-up assistance CODE: 05 TOILETING HYGIENE: TOILETING HYGIENE - STEP 1: Does the patient complete the activity by him/herself with no assistance (physical, verbal/nonverbal cueing, setup/clean-up)? No. TOILETING HYGIENE - STEP 2: Does the patient need only setup/clean-up assistance from one helper? Yes. 1. [id number] ADMISSION PERFORMANCE: Setup or clean-up assistance CODE: 05 BATHING: Not assessed/no information CODE: - DRESSING - UPPER BODY: DRESSING - UPPER BODY - STEP 1: Does the patient complete the activity by him/herself with no assistance (physical, verbal/nonverbal cueing, setup/clean-up)? No. DRESSING - UPPER BODY - STEP 2: Does the patient need only setup/clean-up assistance from one helper? Yes. 1. [id number] ADMISSION PERFORMANCE: Setup or clean-up assistance CODE: 05 DRESSING - LOWER BODY: DRESSING - LOWER BODY - STEP 1: Does the patient complete the activity by him/herself with no assistance (physical, verbal/nonverbal cueing, setup/clean-up)? No. DRESSING - LOWER BODY - STEP 2: Does the patient need only setup/clean-up assistance from one helper? Yes. 1. [id number] ADMISSION PERFORMANCE: Setup or clean-up assistance CODE: 05 PUTTING ON/TAKING OFF FOOTWEAR: FOOTWEAR - STEP 1: Does the patient complete the activity by him/herself with no assistance (physical, verbal/nonverbal cueing, setup/clean-up)? No. FOOTWEAR - STEP 2: Does the patient need only setup/clean-up assistance from one helper? Yes. 1. [id number] ADMISSION PERFORMANCE: Setup or clean-up assistance CODE: 05 ROLL LEFT AND RIGHT: ROLL LEFT AND RIGHT - STEP 1: Does the patient complete the activity by him/herself with no assistance (physical, verbal/nonverbal cueing, setup/clean-up)? No. ROLL LEFT AND RIGHT - STEP 2: Does the patient need only setup/clean-up assistance from one helper? Yes. 1. [id number] ADMISSION PERFORMANCE: Setup or clean-up assistance CODE: 05 SIT TO LYING: SIT TO LYING - STEP 1: Does the patient complete the activity by him/herself with no assistance (physical, verbal/nonverbal cueing, setup/clean-up)? No. SIT TO LYING - STEP 2: Does the patient need only setup/clean-up assistance from one helper? No. SIT TO LYING - STEP 3: Does the patient need only verbal/nonverbal cueing or touching/steadying/contact guard assistance fro m one helper? Yes. 1. [id number] ADMISSION PERFORMANCE: Supervision or touching assistance CODE: 04 LYING TO SITTING: LYING TO SITTING ON SIDE OF BED - STEP 1: Does the patient complete the activity by him/herself with no assistance (physical, verbal/nonverbal cueing, setup/clean-up)? No. LYING TO SITTING ON SIDE OF BED - STEP 2: Does the patient need only setup/clean-up assistance from one helper? No. LYING TO SITTING ON SIDE OF BED - STEP 3: Does the patient need only verbal/nonverbal cueing or touching/steadying/contact guard assistance fro m one helper? Yes. 1. [id number] ADMISSION PERFORMANCE: Supervision or touching assistance CODE: 04 SIT TO STAND: SIT TO STAND - STEP 1: Does the patient complete the activity by him/herself with no assistance (physical, verbal/nonverbal cueing, setup/clean-up)? No. SIT TO STAND - STEP 2: Does the patient need only setup/clean-up assistance from one helper? No. SIT TO STAND - STEP 3: Does the patient need only verbal/nonverbal cueing or touching/steadying/contact guard assistance fro m one helper? Yes. 1. [id number] ADMISSION PERFORMANCE: Supervision or touching assistance CODE: 04 TRANSFERS: BED, CHAIR: CHAIR/[id number] TRANSFER - STEP 1: Does the patient complete the activity by him/herself with no assistance (physical, verbal/nonverbal cueing, setup/clean-up)? No. CHAIR/[id number] TRANSFER - STEP 2: Does the patient need only setup/clean-up assistance from one helper? No. CHAIR/[id number] TRANSFER - STEP 3: Does the patient need only verbal/nonverbal cueing or touching/steadying/contact guard assistance fro m one helper? Yes. 1. [id number] ADMISSION PERFORMANCE: Supervision or touching assistance CODE: 04 TRANSFER TOILET: TOILET TRANSFER - STEP 1: Does the patient complete the activity by him/herself with no assistance (physical, verbal/nonverbal cueing, setup/clean-up)? No. TOILET TRANSFER - STEP 2: Does the patient need only setup/clean-up assistance from one helper? No. TOILET TRANSFER - STEP 3: Does the patient need only verbal/nonverbal cueing or touching/steadying/contact guard assistance fro m one helper? Yes. 1. [id number] ADMISSION PERFORMANCE: Supervision or touching assistance CODE: 04 TRANSFERS: CAR: Not assessed/no information CODE: - WALK 10 FEET: Not assessed/no information CODE: - 1 STEP (CURB): Not assessed/no information CODE: - PICKING UP OBJECT: Not assessed/no information CODE: - DOES THE PATIENT USE A WHEELCHAIR/SCOOTER? Q1. DOES THE PATIENT USE A WHEELCHAIR/SCOOTER?: Yes CODE: 1 WHEEL 50 FEET WITH TWO TURNS: WHEEL 50 FEET WITH TWO TURNS - STEP 1: Does the patient complete the activity by him/herself with no assistance (physical, verbal/nonverbal cueing, setup/clean-up)? No. WHEEL 50 FEET WITH TWO TURNS - STEP 2: Does the patient need only setup/clean-up assistance from one helper? No. WHEEL 50 FEET WITH TWO TURNS - STEP 3: Does the patient need only verbal/nonverbal cueing or touching/steadying/contact guard assistance fro m one helper? Yes. 1. [id number] ADMISSION PERFORMANCE: Supervision or touching assistance CODE: 04 INDICATE THE TYPE OF WHEELCHAIR/SCOOTER USED: RR1. INDICATE THE TYPE OF WHEELCHAIR/SCOOTER USED.: Manual CODE: 1 WHEEL 150 FEET: WHEEL 150 FEET - STEP 1: Does the patient complete the activity by him/herself with no assistance (physical, verbal/nonverbal cueing, setup/clean-up)? No. WHEEL 150 FEET - STEP 2: Does the patient need only setup/clean-up assistance from one helper? No. WHEEL 150 FEET - STEP 3: Does the patient need only verbal/nonverbal cueing or touching/steadying/contact guard assistance fro m one helper? Yes. 1. [id number] ADMISSION PERFORMANCE: Supervision or touching assistance CODE: 04 INDICATE THE TYPE OF WHEELCHAIR/SCOOTER USED: SS1. INDICATE THE TYPE OF WHEELCHAIR/SCOOTER USED.: Manual CODE: 1 BLADDER AND BOWEL: H350. BLADDER CONTINENCE (3-DAY ASSESSMENT PERIOD): Always continent (no documented incontinence) CODE: 0 H400. BOWEL CONTINENCE (3-DAY ASSESSMENT PERIOD): Always continent CODE: 0 SIGNATURE PANEL: The following modified sections: 1. [id number] Admission Performance, 1. [id number] Admission Performance, 1. [id number] Admission Performance, 1. HW4440w Admission Performance, 1. GQ6694r Admission Performance, 1. YY6371c Admission Performance, 1. [id number] Admission Performance, 1. [id number] Admission Performance , 1. [id number] Admission Performance, 1. [id number] Admission Performance, 1. [id number] Admission Performanc e, 1. [id number] Admission Performance, Q1. Does the patient use a wheelchair/scooter?, 1. FI3642I Admis liya Performance, RR1. Indicate the type of wheelchair/scooter used., 1. [id number] Admission Performanc e, Code, 1. [id number] Admission Performance, Code, SS1. Indicate the type of wheelchair/scooter used., H350. Bladder Continence (3-day assessment period), H400. Bowel Continence (3-day assessment period), 1. [id number] Admission Performance, 1. [id number] Admission Performance, 1. [id number] Admission Performance , 1. [id number] Admission Performance were [electronically] signed by Harmony Martinez C.N.AAnna on SatJun 29 2019 14:58:31 T-0500 (Central Daylight Time)
--- NOTE | 2019-06-29 17:18 | R.PN ---
ENCOUNTER DATE AND TIME: 06/29/2019 17:15 (CDT) NAME ALEXANDRIA CORTES DATE OF : 1940 DATE OF ADMISSION: 06/22/2019 14:41 (CDT) CHFCHIEF COMPLAINT: CHF exacerbation and debility SUBJECTIVE: Pt denied any depression. Pt denied any Shortness of Breath. WBC 5.6, Hgb 12.9, prealbumin 16.0, UA and culture are negative. Ambulated 1000' with standby assistance using a rolling walker. Ambulated 250' with contact guard ass istance without an assistive device. VITAL SIGNS Temperature: 99.7 F SBP/DBP: 144/70 Pulse: 60 Resp: 16 MEDICATION ALLERGIES: No Known Drug Allergies (NKDA) ENVIRONMENTAL ALLERGIES: - Substance Allergies None Known - Other Allergies None Known NURSING: - Shower allowing shower ACTIVITIES OOB only with supervision THERAPIES: - Dietary and Nutrition Adequate Nutrition. Nutritional Education. Nutritional Supplements. PHYSICAL EXAM - Gen Alert and awake Lying in bed No apparent distress Oriented to: person, time, and place - Skin No skin breakdown. No abnormalities - Eyes No abnormalities - ENMT No abnormalities - Neck No abnormalities - CVS RRR - Chest mild decrease in breath sounds - Resp No wheezing - Abd Soft - GI Non distended Deferred - No abnormalities - Ext No significant edema - MSK 4/5 weakness in both lower extremities. - Neuro No focal deficits - Psych No abnormalities ASSESSMENT: Pt. is a 78 yo Right-handed white female.On 06/17/2019 she was admitted to [facility] wi th diagnosis CHF.Her impairment category is Cardiac 09 - Cardiac Disorders (09).Pre-morbidly, Pt. wa s independent/mod-I in Locomotion, Balance, Safety Awareness, Social Cognition, Transfers Control, an d Self-Care; and she had good Locomotion, Safety Awareness, Social Cognition, Transfers Control, Sphi ncter Control, and Self-Care.Currently, she has deficits of Safety Awareness, Balance, Self-Care, Loc omotion, Transfers Control, and Endurance.Pt. is now referred to [facility] fo r acute in-patient rehabilitation in order to maximize patient's functional independence in activitie s of daily living, strength, ROM, and mobility.- Rehab Goal Patient has realistic goal of being discharged at assistance level 3-modA to reside at Home with Fam belle/Relatives. MDM/PLAN: - Physical Therapy Gait dysfunction - to improve, our physical therapists will perform initial evaluation of pt's statu s upon admission and devise an individualized program for Gait Training, and Wheel Chair mobility Inability to transfer - to improve, our physical therapists will perform initial evaluation of pt's status upon admission and devise an individualized program for Bed mobility Need for home safety evaluation - to improve, our physical therapists will perform initial evaluatio n of pt's status upon admission and devise an individualized program for Home Evaluation Need in caregiver upon discharge - to improve, our physical therapists will perform initial evaluati on of pt's status upon admission and devise an individualized program for Caregiver Training Edema - to improve, our physical therapists will perform initial evaluation of pt's status upon admi ssion and devise an individualized program for Elevation Training, and Lymphedema Therapy New precaution - to improve, our physical therapists will perform initial evaluation of pt's status upon admission and devise an individualized program for Patient precaution education Poor balance - to improve, our physical therapists will perform initial evaluation of pt's status up on admission and devise an individualized program for Balance Training Poor endurance - to improve, our physical therapists will perform initial evaluation of pt's status upon admission and devise an individualized program for Endurance Training Weakness - to improve, our physical therapists will perform initial evaluation of pt's status upon a dmission and devise an individualized program for Aquatic Therapy, Neuromuscular Reeducation, and Str engthening Achieving independence - to improve, our physical therapists will perform initial evaluation of pt's status upon admission and devise an individualized program for Community Reintegration Activities - Occupational Therapy ADL deficits - to improve, our occupation therapists will perform initial evaluation of pt's status upon admission and devise an individualized program for Bathing, Bed mobility, Community Reintegratio n, Cooking, Dressing, Eating, Fine Motor Skills, Grooming, Homemaking, Kitchen Mobility, Laundry, Pat ient Education, Safety Awareness, Splinting - Positioning, Transfers(Toilet, Tub, Shower), and Wheel Chair Management Need for critical care cns - to improve, our occupation therapists will perform initial evaluation of pt's status upon admission and devise an individualized program for Caregiver Training Weakness - to improve, our occupation therapists will perform initial evaluation of pt's status upon admission and devise an individualized program for Aquatic Therapy, Balance, Endurance, UE ROM, and UE strengthening - Other See attached MAR (Medication Administration Record) - Diet Type Continue Regular - Diet - Liquid Texture Continue Regular - Tube Feed Continue N/A - Diet - Solid Texture Continue Regular - Shower allowing shower FUNCTIONAL STATUS: UPDATED AT WEEKLY TEAM CONFERENCE - Bladder Same accident frequency: 7-Ind - No accidents in the past 7 days - Bowel Same accident frequency: 7-Ind - No accidents in the past 7 days - Walking Same score based on distance walked: 0(N/A) Same score based on distance walked: 3(>=150ft) - Wheelchair Same score based on distance traveled: 0(N/A) FUNCTIONAL STATUS: - Self-Care A. Eating Iraida B. Grooming sup C. Bathing Iraida D. Dressing - Upper sup E. Dressing - Lower Iraida F. Toileting Iraida - Sphincter Control G. Bladder control Alejandro H. Bowel control Alejandro - Transfers Control I. Bed/Chair/Wheelchair sup J. Toilet sup K. Tub/Shower [place] - Locomotion L. Walk/Wheelchair (B) sup M. Stairs sup - Communication N. Comprehension (B) sup O. Expression (B) sup - Social Cognition P. Social Interaction Alejandro Q. Problem Solving Iraida R. Memory Iraida - Endurance Fair - Balance Fair - Safety Awareness Fair QI SCORES: - Self-Care A. Eating 03-Partial/moderate assistance B. Oral hygiene 03-Partial/moderate assistance C. Toileting hygiene 03-Partial/moderate assistance E. Shower/bathe self 03-Partial/moderate assistance F. Upper body dressing 03-Partial/moderate assistance G. Lower body dressing 03-Partial/moderate assistance H. Putting on/taking off footwear 88-Not attempted due to medical condition or safety concerns - Mobility B. Sit to lying 03-Partial/moderate assistance C. Lying to sitting on side of bed 03-Partial/moderate assistance D. Sit to stand 03-Partial/moderate assistance E. Chair/mst-ke-mldfk transfer 03-Partial/moderate assistance F. Toilet transfer 03-Partial/moderate assistance G. Car transfer 88-Not attempted due to medical condition or safety concerns I. Walk 10 feet 03-Partial/moderate assistance J. Walk 50 feet with two turns 88-Not attempted due to medical condition or safety concerns K. Walk 150 feet 88-Not attempted due to medical condition or safety concerns L. Walking 10 feet on uneven surfaces 88-Not attempted due to medical condition or safety concerns M. 1 step (curb) 88-Not attempted due to medical condition or safety concerns N. 4 steps 88-Not attempted due to medical condition or safety concerns O. 12 steps 88-Not attempted due to medical condition or safety concerns P. Picking up object 06-Independent R. Wheel 50 feet with two turns 88-Not attempted due to medical condition or safety concerns S. Wheel 150 feet 88-Not attempted due to medical condition or safety concerns - Bladder and Bowel Bladder continence 0-Always continent Bowel continence 0-Always continent - Endurance Fair - Balance Fair - Safety Awareness Fair CURRENT [facility]. DEFICITS: Self-Care, Mobility, Endurance, Balance, and Safety Awareness SIGNATURE PANEL: (CDT)
[2019-06-29] MEDS: ATORVASTATIN 40 MG TAB PO SCH (20:49)
[2019-06-29] MEDS: APIXABAN 2.5 MG TABLET PO SCH (20:49)
[2019-06-29] MEDS: MELATONIN 3 MG TABLET PO PRN (20:50)
[2019-06-29] MEDS: AMITRIPTYLINE 10 MG TAB PO PRN (22:06)
[2019-06-30] MEDS: METOPROLOL TAR 50 MG TAB PO SCH ×2 (05:02→17:19)
[2019-06-30] MEDS: CRANBERRY FRUIT EXTRACT 200 MG CAP PO SCH ×2 (06:46→20:17)
[2019-06-30] MEDS: ASPIRIN EC 81 MG TAB PO SCH (06:47)
[2019-06-30] MEDS: lisinopriL 10 MG TAB PO SCH ×2 (06:47→20:18)
[2019-06-30] MEDS: APIXABAN 2.5 MG TABLET PO SCH ×2 (06:47→20:17)
[2019-06-30] MEDS: FOLIC ACID 1 MG TABLET PO SCH (06:47)
[2019-06-30] MEDS: levETIRAcetam 500 MG TAB PO SCH ×2 (06:48→20:18)
--- NOTE | 2019-06-30 17:42 | R.PN ---
ENCOUNTER DATE AND TIME: 06/30/2019 17:39 (CDT) NAME ALEXANDRIA CORTES DATE OF : 1940 DATE OF ADMISSION: 06/22/2019 14:41 (CDT) CHFCHIEF COMPLAINT: CHF exacerbation and debility SUBJECTIVE: Pt denied any depression. Pt denied any Shortness of Breath. WBC 5.6, Hgb 12.9, prealbumin 16.0, UA and culture are negative. Ambulated 1000' with standby assistance using a rolling walker. Ambulated 250' with contact guard ass istance without an assistive device. VITAL SIGNS Temperature: 97.3 F SBP/DBP: 149/73 Pulse: 64 Resp: 18 MEDICATION ALLERGIES: No Known Drug Allergies (NKDA) ENVIRONMENTAL ALLERGIES: - Substance Allergies None Known - Other Allergies None Known NURSING: - Shower allowing shower ACTIVITIES OOB only with supervision THERAPIES: - Dietary and Nutrition Adequate Nutrition. Nutritional Education. Nutritional Supplements. PHYSICAL EXAM - Gen Alert and awake Lying in bed No apparent distress Oriented to: person, time, and place - Skin No skin breakdown. No abnormalities - Eyes No abnormalities - ENMT No abnormalities - Neck No abnormalities - CVS RRR - Chest mild decrease in breath sounds - Resp No wheezing - Abd Soft - GI Non distended Deferred - No abnormalities - Ext No significant edema - MSK 4/5 weakness in both lower extremities. - Neuro No focal deficits - Psych No abnormalities ASSESSMENT: Pt. is a 78 yo Right-handed white female.On 06/17/2019 she was admitted to [facility] wi th diagnosis CHF.Her impairment category is Cardiac 09 - Cardiac Disorders (09).Pre-morbidly, Pt. wa s independent/mod-I in Locomotion, Balance, Safety Awareness, Social Cognition, Transfers Control, an d Self-Care; and she had good Locomotion, Safety Awareness, Social Cognition, Transfers Control, Sphi ncter Control, and Self-Care.Currently, she has deficits of Safety Awareness, Balance, Self-Care, Loc omotion, Transfers Control, and Endurance.Pt. is now referred to [facility] fo r acute in-patient rehabilitation in order to maximize patient's functional independence in activitie s of daily living, strength, ROM, and mobility.- Rehab Goal Patient has realistic goal of being discharged at assistance level 3-modA to reside at Home with Fam belle/Relatives. MDM/PLAN: - Physical Therapy Gait dysfunction - to improve, our physical therapists will perform initial evaluation of pt's statu s upon admission and devise an individualized program for Gait Training, and Wheel Chair mobility Inability to transfer - to improve, our physical therapists will perform initial evaluation of pt's status upon admission and devise an individualized program for Bed mobility Need for home safety evaluation - to improve, our physical therapists will perform initial evaluatio n of pt's status upon admission and devise an individualized program for Home Evaluation Need in caregiver upon discharge - to improve, our physical therapists will perform initial evaluati on of pt's status upon admission and devise an individualized program for Caregiver Training Edema - to improve, our physical therapists will perform initial evaluation of pt's status upon admi ssion and devise an individualized program for Elevation Training, and Lymphedema Therapy New precaution - to improve, our physical therapists will perform initial evaluation of pt's status upon admission and devise an individualized program for Patient precaution education Poor balance - to improve, our physical therapists will perform initial evaluation of pt's status up on admission and devise an individualized program for Balance Training Poor endurance - to improve, our physical therapists will perform initial evaluation of pt's status upon admission and devise an individualized program for Endurance Training Weakness - to improve, our physical therapists will perform initial evaluation of pt's status upon a dmission and devise an individualized program for Aquatic Therapy, Neuromuscular Reeducation, and Str engthening Achieving independence - to improve, our physical therapists will perform initial evaluation of pt's status upon admission and devise an individualized program for Community Reintegration Activities - Occupational Therapy ADL deficits - to improve, our occupation therapists will perform initial evaluation of pt's status upon admission and devise an individualized program for Bathing, Bed mobility, Community Reintegratio n, Cooking, Dressing, Eating, Fine Motor Skills, Grooming, Homemaking, Kitchen Mobility, Laundry, Pat ient Education, Safety Awareness, Splinting - Positioning, Transfers(Toilet, Tub, Shower), and Wheel Chair Management Need for daycare provider - to improve, our occupation therapists will perform initial evaluation of pt's status upon admission and devise an individualized program for Caregiver Training Weakness - to improve, our occupation therapists will perform initial evaluation of pt's status upon admission and devise an individualized program for Aquatic Therapy, Balance, Endurance, UE ROM, and UE strengthening - Other See attached MAR (Medication Administration Record) - Diet Type Continue Regular - Diet - Liquid Texture Continue Regular - Tube Feed Continue N/A - Diet - Solid Texture Continue Regular - Shower allowing shower FUNCTIONAL STATUS: UPDATED AT WEEKLY TEAM CONFERENCE - Bladder Same accident frequency: 7-Ind - No accidents in the past 7 days - Bowel Same accident frequency: 7-Ind - No accidents in the past 7 days - Walking Same score based on distance walked: 0(N/A) Same score based on distance walked: 3(>=150ft) - Wheelchair Same score based on distance traveled: 0(N/A) FUNCTIONAL STATUS: - Self-Care A. Eating Iraida B. Grooming sup C. Bathing Iraida D. Dressing - Upper sup E. Dressing - Lower Iraida F. Toileting Iraida - Sphincter Control G. Bladder control Alejandro H. Bowel control Alejandro - Transfers Control I. Bed/Chair/Wheelchair sup J. Toilet sup K. Tub/Shower Iraida - Locomotion L. Walk/Wheelchair (B) sup M. Stairs sup - Communication N. Comprehension (B) sup O. Expression (B) sup - Social Cognition P. Social Interaction Alejandro Q. Problem Solving Iraida R. Memory Iraida - Endurance Fair - Balance Fair - Safety Awareness Fair QI SCORES: - Self-Care A. Eating 03-Partial/moderate assistance B. Oral hygiene 03-Partial/moderate assistance C. Toileting hygiene 03-Partial/moderate assistance E. Shower/bathe self 03-Partial/moderate assistance F. Upper body dressing 03-Partial/moderate assistance G. Lower body dressing 03-Partial/moderate assistance H. Putting on/taking off footwear 88-Not attempted due to medical condition or safety concerns - Mobility B. Sit to lying 03-Partial/moderate assistance C. Lying to sitting on side of bed 03-Partial/moderate assistance D. Sit to stand 03-Partial/moderate assistance E. Chair/[id number] transfer 03-Partial/moderate assistance F. Toilet transfer 03-Partial/moderate assistance G. Car transfer 88-Not attempted due to medical condition or safety concerns I. Walk 10 feet 03-Partial/moderate assistance J. Walk 50 feet with two turns 88-Not attempted due to medical condition or safety concerns K. Walk 150 feet 88-Not attempted due to medical condition or safety concerns L. Walking 10 feet on uneven surfaces 88-Not attempted due to medical condition or safety concerns M. 1 step (curb) 88-Not attempted due to medical condition or safety concerns N. 4 steps 88-Not attempted due to medical condition or safety concerns O. 12 steps 88-Not attempted due to medical condition or safety concerns P. Picking up object 06-Independent R. Wheel 50 feet with two turns 88-Not attempted due to medical condition or safety concerns S. Wheel 150 feet 88-Not attempted due to medical condition or safety concerns - Bladder and Bowel Bladder continence 0-Always continent Bowel continence 0-Always continent - Endurance Fair - Balance Fair - Safety Awareness Fair CURRENT [facility]. DEFICITS: Self-Care, Mobility, Endurance, Balance, and Safety Awareness SIGNATURE PANEL: (CDT)
[2019-06-30] MEDS: TRAZODONE 50 MG TABLET PO PRN (20:18)
[2019-06-30] MEDS: ATORVASTATIN 40 MG TAB PO SCH (20:18)
[2019-06-30] MEDS: AMITRIPTYLINE 10 MG TAB PO PRN (20:18)
[2019-06-30] MEDS: DOCUSATE NA/SENNA CONC 1 TAB PO PRN (20:18)
[2019-06-30] MEDS: MELATONIN 3 MG TABLET PO PRN (20:18)
[2019-07-01] MEDS: METOPROLOL TAR 50 MG TAB PO SCH ×2 (05:07→17:08)
[2019-07-01] MEDS: levETIRAcetam 500 MG TAB PO SCH ×2 (08:00→19:34)
[2019-07-01] MEDS: lisinopriL 10 MG TAB PO SCH ×2 (08:53→19:35)
[2019-07-01] MEDS: APIXABAN 2.5 MG TABLET PO SCH ×2 (08:54→19:34)
[2019-07-01] MEDS: ASPIRIN EC 81 MG TAB PO SCH (08:54)
[2019-07-01] MEDS: FOLIC ACID 1 MG TABLET PO SCH (08:54)
[2019-07-01] MEDS: CRANBERRY FRUIT EXTRACT 200 MG CAP PO SCH ×2 (08:55→19:34)
--- NOTE | 2019-07-01 12:41 | FAST ---
ENCOUNTER DATE AND TIME: 07/01/2019 08:00 (CDT) NAME ALEXANDRIA CORTES DATE OF : 1940 DATE OF ADMISSION: 06/22/2019 14:41 (CDT) PHONE: AGE: 78 N# [id number] GENDER: Female ENCOUNTER PHYSICIAN: Dr. Richard Cai M.D. ADMISSION DIAGNOSIS: - Cardiac 09 - Cardiac Disorders () CHF. EATING: Not assessed/no information CODE: - ORAL HYGIENE: ORAL HYGIENE - STEP 1: Does the patient complete the activity by him/herself with no assistance (physical, verbal/nonverbal cueing, setup/clean-up)? Yes. 1. [id number] ADMISSION PERFORMANCE: Independent CODE: 06 TOILETING HYGIENE: TOILETING HYGIENE - STEP 1: Does the patient complete the activity by him/herself with no assistance (physical, verbal/nonverbal cueing, setup/clean-up)? Yes. 1. [id number] ADMISSION PERFORMANCE: Independent CODE: 06 BATHING: SHOWER/BATHE SELF - STEP 1: Does the patient complete the activity by him/herself with no assistance (physical, verbal/nonverbal cueing, setup/clean-up)? Yes. 1. [id number] ADMISSION PERFORMANCE: Independent CODE: 06 DRESSING - UPPER BODY: DRESSING - UPPER BODY - STEP 1: Does the patient complete the activity by him/herself with no assistance (physical, verbal/nonverbal cueing, setup/clean-up)? Yes. 1. [id number] ADMISSION PERFORMANCE: Independent CODE: 06 DRESSING - LOWER BODY: DRESSING - LOWER BODY - STEP 1: Does the patient complete the activity by him/herself with no assistance (physical, verbal/nonverbal cueing, setup/clean-up)? Yes. 1. [id number] ADMISSION PERFORMANCE: Independent CODE: 06 PUTTING ON/TAKING OFF FOOTWEAR: FOOTWEAR - STEP 1: Does the patient complete the activity by him/herself with no assistance (physical, verbal/nonverbal cueing, setup/clean-up)? Yes. 1. [id number] ADMISSION PERFORMANCE: Independent CODE: 06 DOES THE PATIENT USE A WHEELCHAIR/SCOOTER? CODE: EXPR INDICATE THE TYPE OF WHEELCHAIR/SCOOTER USED: CODE: EXPR INDICATE THE TYPE OF WHEELCHAIR/SCOOTER USED: CODE: EXPR BLADDER AND BOWEL: CODE: EXPR CODE: EXPR SIGNATURE PANEL: The following modified sections: 1. [id number] Admission Performance, 1. [id number] Admission Performance, 1. [id number] Admission Performance, 1. [id number] Admission Performance, 1. [id number] Admission Performance, 1. [id number] Admission Performance were [electronically] signed by JOHN Coyne on SatJul 01 2019 12:40:33 GMT-0500 (Central Daylight Time)
[2019-07-01] MEDS ORDERED: ACETAMINOPHEN 500 MG TAB PO PRN (12:47)
[2019-07-01] MEDS: AMITRIPTYLINE 10 MG TAB PO PRN (19:34)
[2019-07-01] MEDS: MELATONIN 3 MG TABLET PO PRN (19:34)
[2019-07-01] MEDS: ATORVASTATIN 40 MG TAB PO SCH (19:34)
[2019-07-01] MEDS: DOCUSATE NA/SENNA CONC 1 TAB PO PRN (19:34)
[2019-07-02] MEDS: METOPROLOL TAR 50 MG TAB PO SCH (05:06)
[2019-07-02 05:53] VITALS: BMI 21.7
[2019-07-02 06:21] LABS: Albumin 3.3 g/dL (3.4-5.0); Magnesium 2.1 mg/dL (1.8-2.4); Potassium 4.7 mmol/L (3.5-5.1); Prealbumin 16.2 mg/dL (20-40)
[2019-07-02 06:38] LABS: Absolute Lymphocytes (CBC) 1.2 K/uL (0.7-4.9); Basophils % 0.7 % (0-1.3); Hematocrit 39.6 % (36.0-45.0); Lymphocytes % 17.1 % (15.3-44.8); MPV 9.9 fL (7.6-11.3); RBC Red Blood Cell Count 4.86 M/uL (3.86-4.86)
[2019-07-02] MEDS: lisinopriL 10 MG TAB PO SCH (06:41)
[2019-07-02] MEDS: CRANBERRY FRUIT EXTRACT 200 MG CAP PO SCH (07:58)
[2019-07-02] MEDS: APIXABAN 2.5 MG TABLET PO SCH (07:58)
[2019-07-02] MEDS: ASPIRIN EC 81 MG TAB PO SCH (07:59)
[2019-07-02] MEDS: FOLIC ACID 1 MG TABLET PO SCH (07:59)
[2019-07-02] MEDS: levETIRAcetam 500 MG TAB PO SCH (07:59)
[2019-07-02 09:35] VITALS: TEMP 97.5
--- NOTE | 2019-07-02 10:26 | FAST ---
SHIFT START DATE/TIME: 07/02/2019 07:00 (CDT) SHIFT END DATE/TIME: 07/02/2019 19:00 (CDT) NAME ALEXANDRIA CORTES DATE OF : 1940 DATE OF ADMISSION: 06/22/2019 14:41 (CDT) PHONE: AGE: 78 N# [id number] GENDER: Female ENCOUNTER PHYSICIAN: Dr. Richard Cai M.D. ADMISSION DIAGNOSIS: - Cardiac 09 - Cardiac Disorders () CHF. EATING: EATING - STEP 1: Does the patient complete the activity by him/herself with no assistance (physical, verbal/nonverbal cueing, setup/clean-up)? No. EATING - STEP 2: Does the patient need only setup/clean-up assistance from one helper? No. EATING - STEP 3: Does the patient need only verbal/nonverbal cueing or touching/steadying/contact guard assistance fro m one helper? Yes. 1. [id number] ADMISSION PERFORMANCE: Supervision or touching assistance CODE: 04 ORAL HYGIENE: ORAL HYGIENE - STEP 1: Does the patient complete the activity by him/herself with no assistance (physical, verbal/nonverbal cueing, setup/clean-up)? No. ORAL HYGIENE - STEP 2: Does the patient need only setup/clean-up assistance from one helper? Yes. 1. [id number] ADMISSION PERFORMANCE: Setup or clean-up assistance CODE: 05 TOILETING HYGIENE: TOILETING HYGIENE - STEP 1: Does the patient complete the activity by him/herself with no assistance (physical, verbal/nonverbal cueing, setup/clean-up)? No. TOILETING HYGIENE - STEP 2: Does the patient need only setup/clean-up assistance from one helper? No. TOILETING HYGIENE - STEP 3: Does the patient need only verbal/nonverbal cueing or touching/steadying/contact guard assistance fro m one helper? Yes. 1. [id number] ADMISSION PERFORMANCE: Supervision or touching assistance CODE: 04 BATHING: Not assessed/no information CODE: - DRESSING - UPPER BODY: Not assessed/no information CODE: - DRESSING - LOWER BODY: Not assessed/no information CODE: - PUTTING ON/TAKING OFF FOOTWEAR: Not assessed/no information CODE: - ROLL LEFT AND RIGHT: ROLL LEFT AND RIGHT - STEP 1: Does the patient complete the activity by him/herself with no assistance (physical, verbal/nonverbal cueing, setup/clean-up)? No. ROLL LEFT AND RIGHT - STEP 2: Does the patient need only setup/clean-up assistance from one helper? Yes. 1. [id number] ADMISSION PERFORMANCE: Setup or clean-up assistance CODE: 05 SIT TO LYING: SIT TO LYING - STEP 1: Does the patient complete the activity by him/herself with no assistance (physical, verbal/nonverbal cueing, setup/clean-up)? No. SIT TO LYING - STEP 2: Does the patient need only setup/clean-up assistance from one helper? No. SIT TO LYING - STEP 3: Does the patient need only verbal/nonverbal cueing or touching/steadying/contact guard assistance fro m one helper? Yes. 1. [id number] ADMISSION PERFORMANCE: Supervision or touching assistance CODE: 04 LYING TO SITTING: Not assessed/no information CODE: - SIT TO STAND: Not assessed/no information CODE: - TRANSFERS: BED, CHAIR: CHAIR/[id number] TRANSFER - STEP 1: Does the patient complete the activity by him/herself with no assistance (physical, verbal/nonverbal cueing, setup/clean-up)? No. CHAIR/[id number] TRANSFER - STEP 2: Does the patient need only setup/clean-up assistance from one helper? No. CHAIR/[id number] TRANSFER - STEP 3: Does the patient need only verbal/nonverbal cueing or touching/steadying/contact guard assistance fro m one helper? Yes. 1. [id number] ADMISSION PERFORMANCE: Supervision or touching assistance CODE: 04 TRANSFER TOILET: TOILET TRANSFER - STEP 1: Does the patient complete the activity by him/herself with no assistance (physical, verbal/nonverbal cueing, setup/clean-up)? No. TOILET TRANSFER - STEP 2: Does the patient need only setup/clean-up assistance from one helper? No. TOILET TRANSFER - STEP 3: Does the patient need only verbal/nonverbal cueing or touching/steadying/contact guard assistance fro m one helper? Yes. 1. [id number] ADMISSION PERFORMANCE: Supervision or touching assistance CODE: 04 TRANSFERS: CAR: Not assessed/no information CODE: - WALK 10 FEET: Not assessed/no information CODE: - 1 STEP (CURB): Not assessed/no information CODE: - PICKING UP OBJECT: Not assessed/no information CODE: - DOES THE PATIENT USE A WHEELCHAIR/SCOOTER? CODE: EXPR WHEEL 50 FEET WITH TWO TURNS: Not assessed/no information CODE: - INDICATE THE TYPE OF WHEELCHAIR/SCOOTER USED: CODE: EXPR WHEEL 150 FEET: Not assessed/no information CODE: - INDICATE THE TYPE OF WHEELCHAIR/SCOOTER USED: CODE: EXPR BLADDER AND BOWEL: H350. BLADDER CONTINENCE (3-DAY ASSESSMENT PERIOD): Always continent (no documented incontinence) CODE: 0 H400. BOWEL CONTINENCE (3-DAY ASSESSMENT PERIOD): Always continent CODE: 0 SIGNATURE PANEL: The following modified sections: 1. [id number] Admission Performance, 1. [id number] Admission Performance, 1. [id number] Admission Performance, 1. [id number] Admission Performance, 1. [id number] Admission Performance, 1. [id number] Admission Performance, 1. [id number] Admission Performance, Code, H350. Bladder Continence ( 3-day assessment period), H400. Bowel Continence (3-day assessment period) were [electronically] sign ed by Jorge Fried on SatJul 02 2019 10:25:28 GMT-0500 (Central Daylight Time)
[2019-07-02 13:29] VITALS: BP 97/52
--- NOTE | 2019-07-02 17:32 | R.PN ---
ENCOUNTER DATE AND TIME: 07/02/2019 17:25 (CDT) NAME ALEXANDRIA CORTES DATE OF : 1940 DATE OF ADMISSION: 06/22/2019 14:41 (CDT) CHFCHIEF COMPLAINT: CHF exacerbation and debility SUBJECTIVE: Pt denied any depression. Pt denied any Shortness of Breath. WBC 5.6, Hgb 12.9, prealbumin 16.0, UA and culture are negative. Ambulated 1500' with standby assistance using a rolling walker. She has a MOCA test total of 17/30 co nsistent with moderate dementia. This is likely secondary to chronic small vessel disease given her r ecent stroke. Her daughter noted chronic cognitive impairment for at least 2 years. She will be disch arged home today with 17/09 supervision by her daughter and home health for physical, occupational and speech therapy. VITAL SIGNS Temperature: 97.5 F SBP/DBP: 97 to 183/54 to 95 Pulse: 55 Resp: 18 MEDICATION ALLERGIES: No Known Drug Allergies (NKDA) ENVIRONMENTAL ALLERGIES: - Substance Allergies None Known - Other Allergies None Known NURSING: - Shower allowing shower ACTIVITIES OOB only with supervision THERAPIES: - Dietary and Nutrition Adequate Nutrition. Nutritional Education. Nutritional Supplements. PHYSICAL EXAM - Gen Alert and awake Lying in bed No apparent distress Oriented to: person, time, and place - Skin No skin breakdown. No abnormalities - Eyes No abnormalities - ENMT No abnormalities - Neck No abnormalities - CVS RRR - Chest mild decrease in breath sounds - Resp No wheezing - Abd Soft - GI Non distended Deferred - No abnormalities - Ext No significant edema - MSK 4/5 weakness in both lower extremities. - Neuro No focal deficits - Psych No abnormalities ASSESSMENT: Pt. is a 78 yo Right-handed white female.On 06/17/2019 she was admitted to [facility] wi th diagnosis CHF.Her impairment category is Cardiac 09 - Cardiac Disorders ().Pre-morbidly, Pt. wa s independent/mod-I in Locomotion, Balance, Safety Awareness, Social Cognition, Transfers Control, an d Self-Care; and she had good Locomotion, Safety Awareness, Social Cognition, Transfers Control, Sphi ncter Control, and Self-Care.Currently, she has deficits of Safety Awareness, Balance, Self-Care, Loc omotion, Transfers Control, and Endurance.Pt. is now referred to [facility] fo r acute in-patient rehabilitation in order to maximize patient's functional independence in activitie s of daily living, strength, ROM, and mobility.- Rehab Goal Patient has realistic goal of being discharged at assistance level 3-modA to reside at Home with Fam belle/Relatives. MDM/PLAN: - Physical Therapy Gait dysfunction - to improve, our physical therapists will perform initial evaluation of pt's statu s upon admission and devise an individualized program for Gait Training, and Wheel Chair mobility Inability to transfer - to improve, our physical therapists will perform initial evaluation of pt's status upon admission and devise an individualized program for Bed mobility Need for home safety evaluation - to improve, our physical therapists will perform initial evaluatio n of pt's status upon admission and devise an individualized program for Home Evaluation Need in caregiver upon discharge - to improve, our physical therapists will perform initial evaluati on of pt's status upon admission and devise an individualized program for Caregiver Training Edema - to improve, our physical therapists will perform initial evaluation of pt's status upon admi ssion and devise an individualized program for Elevation Training, and Lymphedema Therapy New precaution - to improve, our physical therapists will perform initial evaluation of pt's status upon admission and devise an individualized program for Patient precaution education Poor balance - to improve, our physical therapists will perform initial evaluation of pt's status up on admission and devise an individualized program for Balance Training Poor endurance - to improve, our physical therapists will perform initial evaluation of pt's status upon admission and devise an individualized program for Endurance Training Weakness - to improve, our physical therapists will perform initial evaluation of pt's status upon a dmission and devise an individualized program for Aquatic Therapy, Neuromuscular Reeducation, and Str engthening Achieving independence - to improve, our physical therapists will perform initial evaluation of pt's status upon admission and devise an individualized program for Community Reintegration Activities - Occupational Therapy ADL deficits - to improve, our occupation therapists will perform initial evaluation of pt's status upon admission and devise an individualized program for Bathing, Bed mobility, Community Reintegratio n, Cooking, Dressing, Eating, Fine Motor Skills, Grooming, Homemaking, Kitchen Mobility, Laundry, Pat ient Education, Safety Awareness, Splinting - Positioning, Transfers(Toilet, Tub, Shower), and Wheel Chair Management Need for child care education coordinator - to improve, our occupation therapists will perform initial evaluation of pt's status upon admission and devise an individualized program for Caregiver Training Weakness - to improve, our occupation therapists will perform initial evaluation of pt's status upon admission and devise an individualized program for Aquatic Therapy, Balance, Endurance, UE ROM, and UE strengthening - Other See attached MAR (Medication Administration Record) - Diet Type Continue Regular - Diet - Liquid Texture Continue Regular - Tube Feed Continue N/A - Diet - Solid Texture Continue Regular - Shower allowing shower FUNCTIONAL STATUS: UPDATED AT WEEKLY TEAM CONFERENCE - Bladder Same accident frequency: 7-Ind - No accidents in the past 7 days - Bowel Same accident frequency: 7-Ind - No accidents in the past 7 days - Walking Same score based on distance walked: 0(N/A) Same score based on distance walked: 3(>=150ft) - Wheelchair Same score based on distance traveled: 0(N/A) FUNCTIONAL STATUS: - Self-Care A. Eating Iraida B. Grooming sup C. Bathing Iraida D. Dressing - Upper sup E. Dressing - Lower Iraida F. Toileting Iraida - Sphincter Control G. Bladder control Alejandro H. Bowel control Alejandro - Transfers Control I. Bed/Chair/Wheelchair sup J. Toilet sup K. Tub/Shower Iraida - Locomotion L. Walk/Wheelchair (B) sup M. Stairs sup - Communication N. Comprehension (B) sup O. Expression (B) sup - Social Cognition P. Social Interaction Alejandro Q. Problem Solving Iraida R. Memory Iraida - Endurance Fair - Balance Fair - Safety Awareness Fair QI SCORES: - Self-Care A. Eating 03-Partial/moderate assistance B. Oral hygiene 03-Partial/moderate assistance C. Toileting hygiene 03-Partial/moderate assistance E. Shower/bathe self 03-Partial/moderate assistance F. Upper body dressing 03-Partial/moderate assistance G. Lower body dressing 03-Partial/moderate assistance H. Putting on/taking off footwear 88-Not attempted due to medical condition or safety concerns - Mobility B. Sit to lying 03-Partial/moderate assistance C. Lying to sitting on side of bed 03-Partial/moderate assistance D. Sit to stand 03-Partial/moderate assistance E. Chair/xzd-ww-[id number] transfer 03-Partial/moderate assistance F. Toilet transfer 03-Partial/moderate assistance G. Car transfer 88-Not attempted due to medical condition or safety concerns I. Walk 10 feet 03-Partial/moderate assistance J. Walk 50 feet with two turns 88-Not attempted due to medical condition or safety concerns K. Walk 150 feet 88-Not attempted due to medical condition or safety concerns L. Walking 10 feet on uneven surfaces 88-Not attempted due to medical condition or safety concerns M. 1 step (curb) 88-Not attempted due to medical condition or safety concerns N. 4 steps 88-Not attempted due to medical condition or safety concerns O. 12 steps 88-Not attempted due to medical condition or safety concerns P. Picking up object 06-Independent R. Wheel 50 feet with two turns 88-Not attempted due to medical condition or safety concerns S. Wheel 150 feet 88-Not attempted due to medical condition or safety concerns - Bladder and Bowel Bladder continence 0-Always continent Bowel continence 0-Always continent - Endurance Fair - Balance Fair - Safety Awareness Fair CURRENT [facility]. DEFICITS: Self-Care, Mobility, Endurance, Balance, and Safety Awareness SIGNATURE PANEL: (CDT)
--- NOTE | 2019-07-15 12:10 | R.DS ---
FACILITY [facility] MR# [id number] NAME SHANELL CORTES ADDRESS [address] [place] [address] [address] [id number] PHONE DATE OF 1940 AGE 78 SSN# [id number] GENDER Female DEXTERITY Right-handed MARITAL STATUS RACE White ENCOUNTER PHYSICIAN Dr. Richard Cai M.D. REFERRING DOCTOR REFERRING FACILITY [facility] DISCHARGE DIAGNOSIS: - Cardiac 09 - Cardiac Disorders (09) Acute systolic congestive heart failure (EF 30%). 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 Dyslipedemia. Left posterior hemispheric epileptiform discharges. DATE OF ADMISSION 06/22/2019 14:41 (CDT) MEDICATION ALLERGIES: No Known Drug Allergies (NKDA) ENVIRONMENTAL ALLERGIES: - Substance Allergies None Known - Other Allergies None Known DISCHARGE MEDICATIONS: Other- ContinueSee attached MAR (Medication Administration Record). NURSING: - Shower allowing shower ACTIVITIES OOB only with supervision THERAPIES: - Dietary and Nutrition Adequate Nutrition Nutritional Education Nutritional Supplements - Speech Therapy Memory Strategies HISTORY OF PRESENT ILLNESS: Pt. is a 78 yo Right-handed white female.On 06/17/2019 she was admitted to [facility]) wi th diagnosis Acute systolic congestive heart failure (EF 30%)..Her impairment category is Cardiac 09 - Cardiac Disorders ().Pre-morbidly, Pt. was independent/mod-I in Locomotion, Balance, Safety Awar eness, Social Cognition, Transfers Control, and Self-Care; and she had good Locomotion, Safety Awaren ess, Social Cognition, Transfers Control, Sphincter Control, and Self-Care.Currently, she has deficit s of Safety Awareness, Balance, Self-Care, Locomotion, Transfers Control, and Endurance.Pt. is now re ferred to [facility] for acute in-patient rehabilitation in order to maximize patient's functional independence in activities of daily living, strength, ROM, and mobility.- Rehab Goal Patient has realistic goal of being discharged at assistance level 3-modA to reside at Home with Fam belle/Relatives. Ms. Shanell Cortes is a 78 year old right handed women that lives independently. She has hypertension and came to [facility] with perhaps 1 or more days of some cough, shortness of breath and subjective fever. She was also confused and disoriented. Patient was evaluated for COVID-19 and studies were actually sent off, which subsequently come back negative for RT-PCR. 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 Given the nature of the possibility of irritation in that region and the possibility of seizures, patient was placed on Keppra 500 mg twice daily. She was admitted to the floor for additional stroke workup and treatment of possible urinary tract infection. Patient was transferred to [facility] inpt rehab and is hemodynamically stable with relatively stable labs. He is now medically stable but in need of 24 hour nursing, doctor supervision and oversight while receiving active and ongoing intensive hours of therapy a day/15 hours per week and receive care with intensive interdisciplinary approach. COVID-19 screening performed; spoke with patient via phone. Patient denies new onset of fever, cough, difficulty breathing, sore throat, body aches and non-allergy nasal congestion in the past 24 hours. Patient denies travel outside of [place] in the past 14 days. Patient denies any contact with someone who has a confirmed diagnosis of or is under investigation for COVID-19 in the past 14 days.HOSPITAL COURSE: DIET - LIQUID TEXTURE: On 06/22/2019 Pt was upgraded to Regular Diet - Liquid Texture. DIET - SOLID TEXTURE: On 06/22/2019 Pt was upgraded to Regular Diet - Solid Texture. DIET TYPE: On 06/22/2019 Pt was upgraded to Regular Diet Type. TUBE FEED: On 06/22/2019 Pt was changed to N/A Tube Feed. DISCHARGE PHYSICAL EXAM - Gen Alert and awake Lying in bed No apparent distress Oriented to: person, time, and place - Skin No skin breakdown. No abnormalities - Eyes No abnormalities - ENMT No abnormalities - Neck No abnormalities - CVS RRR - Chest mild decrease in breath sounds - Resp No wheezing - Abd Soft - GI Non distended Deferred - No abnormalities - Ext No significant edema - MSK 4/5 weakness in both lower extremities. - Neuro No focal deficits - Psych No abnormalities FUNCTIONAL STATUS: - Self-Care A. Eating 5-sup B. Grooming 5-sup C. Bathing 5-sup D. Dressing - Upper 5-sup E. Dressing - Lower 6-Alejandro F. Toileting 6-Alejandro - Sphincter Control G. Bladder control 6-Alejandro H. Bowel control 6-Alejandro - Transfers Control I. Bed/Chair/Wheelchair 6-Alejandro J. Toilet 6-Alejandro K. Tub/Shower 6-Alejandro - Locomotion L. Walk/Wheelchair (B) 6-Alejandro M. Stairs 6-Alejandro - Communication N. Comprehension (B) 5-sup O. Expression (B) 5-sup - Social Cognition P. Social Interaction 6-Alejandro Q. Problem Solving 5-sup R. Memory 5-sup - Endurance Fair - Balance Fair - Safety Awareness Fair QI SCORES: - Self-Care A. Eating 03-Partial/moderate assistance B. Oral hygiene 03-Partial/moderate assistance C. Toileting hygiene 03-Partial/moderate assistance E. Shower/bathe self 03-Partial/moderate assistance F. Upper body dressing 03-Partial/moderate assistance G. Lower body dressing 03-Partial/moderate assistance H. Putting on/taking off footwear 88-Not attempted due to medical condition or safety concerns - Mobility B. Sit to lying 03-Partial/moderate assistance C. Lying to sitting on side of bed 03-Partial/moderate assistance D. Sit to stand 03-Partial/moderate assistance E. Chair/ujj-zy-dmlta transfer 03-Partial/moderate assistance F. Toilet transfer 03-Partial/moderate assistance G. Car transfer 88-Not attempted due to medical condition or safety concerns I. Walk 10 feet 03-Partial/moderate assistance J. Walk 50 feet with two turns 88-Not attempted due to medical condition or safety concerns K. Walk 150 feet 88-Not attempted due to medical condition or safety concerns L. Walking 10 feet on uneven surfaces 88-Not attempted due to medical condition or safety concerns M. 1 step (curb) 88-Not attempted due to medical condition or safety concerns N. 4 steps 88-Not attempted due to medical condition or safety concerns O. 12 steps 88-Not attempted due to medical condition or safety concerns P. Picking up object 06-Independent R. Wheel 50 feet with two turns 88-Not attempted due to medical condition or safety concerns S. Wheel 150 feet 88-Not attempted due to medical condition or safety concerns - Bladder and Bowel Bladder continence 0-Always continent Bowel continence 0-Always continent - Endurance Fair - Balance Fair - Safety Awareness Fair DISCHARGE INSTRUCTIONS: - N/A Eliquis 2.5 mg twice daily, Aspirin 81 mg daily. DISCHARGE PLAN, FOLLOW UP CARE PROVISIONS: - Estimated Length of Stay (days) 10. - Consensus on plan Discharge plan has been discussed with primary caregiver. Patient/Family is in agreement with the larry n. Primary caregiver is in agreement with the plan. - Patient/Family Goals Return home independently. - Planned Living Setting Upon Discharge Home, to live with Family/Relatives. Transitional Living. SIGNATURE PANEL: (CDT)
== END 2019-07-02 14:25 | disposition home health service (06) | DRG 57 ==
LOC: 5TH 06-22 14:41
PROVIDERS: ADMIT Psychiatry & Neurology Neurology with Special Qualifications in Child Neurology; ATTEND Psychiatry & Neurology Neurology with Special Qualifications in Child Neurology
DX: I69.398 Other sequelae of cerebral infarction (principal); H53.461 Homonymous bilateral field defects, right side; I10 Essential (primary) hypertension; E78.5 Hyperlipidemia, unspecified; F03.90 Unspecified dementia, unspecified severity, without behavioral disturbance, psychotic disturbance, mood disturbance, and anxiety; Z66 Do not resuscitate
CPT/HCPCS: 36415; 80048; 81001; 82040; 83735; 84134; 85025; 87086; 87088; 92507; 92523; 92526; 93005; 97112; 97116; 97161; 97530; J1650

== ENCOUNTER 2021-01-03 13:39 | Inpatient (IN) | payer OTHER ==
[2021-01-03 14:02] LABS: Urine Blood Trace-intact (Negative); Urine Glucose Negative (Negative); Urine Protein 2+ (Negative)
[2021-01-03 14:17] LABS: Absolute Lymphocytes (CBC) 1.4 K/uL (0.7-4.9); Basophils % 0.5 % (0-1.3); Lymphocytes % 15.1 % (15.3-44.8); RBC Red Blood Cell Count 4.41 M/uL (3.86-4.86)
[2021-01-03] MEDS ORDERED: LABETALOL HCL 100 MG/20 ML ONE (14:22)
--- NOTE | 2021-01-03 14:22 | RAD REPORT ---
EXAM DESCRIPTION: CT - Ct Stroke Brain Wo Cont - 01/03/2021 2:03 pm CLINICAL HISTORY: altered mental status COMPARISON: Head angio dated 06/19/2019 TECHNIQUE: Axial 5 millimeter thick images of the head were obtained without IV contrast. All CT scans are performed using dose optimization technique as appropriate and may include automated exposure control or mA/KV adjustment according to patient size. FINDINGS: A 4.5 x 2.9 centimeter intraparenchymal hematoma is present centered in the deep periventr icular white matter left frontal lobe extending into the basal ganglia. There is a large intraventric ular component in the left lateral ventricle with additional acute hemorrhage in the right lateral ve ntricle, third ventricle and fourth ventricle. Obstructive hydrocephalus changes have developed. Appr oximately 8 mm of rznl-yb-[id number] sub falcine midline shift at the level of the hemorrhage. No acute cortical based infarction. No peripheral cortical edema or sulcal effacement. There is ence phalomalacia in the medial left occipital lobe from remote CVA. Visualized portions of the mastoid air cells, paranasal sinuses, and orbits are unremarkable. Findings telephoned to Dr. Wallace 1417 hours IMPRESSION: Large 4.5 x 2.9 centimeter intraparenchymal hematoma in the left basal ganglia and left frontal lobe white matter. Intraventricular hemorrhagic component is present with obstructive hydrocephalus. Approximately 8 mm [id number]-xe-[id number] midline shift.
[2021-01-03 14:24] LABS: Barbiturates NEGATIVE (NEGATIVE); Benzodiazepines NEGATIVE (NEGATIVE); Cocaine NEGATIVE (NEGATIVE); METHAMPHETAM NEGATIVE (NEGATIVE); Methadone NEGATIVE (NEGATIVE); Opiates NEGATIVE (NEGATIVE); Phencyclidine NEGATIVE (NEGATIVE); THC Cannibis NEGATIVE (NEGATIVE)
[2021-01-03 14:26] LABS: Potassium 4.2 mmol/L (3.5-5.1)
[2021-01-03 14:27] LABS: Protime INR 0.96
--- NOTE | 2021-01-03 15:05 | RAD REPORT ---
EXAM DESCRIPTION: RAD - Chest Single View - 01/03/2021 2:42 pm CLINICAL HISTORY: altered mental status COMPARISON: Two view chest May 2019 TECHNIQUE: AP portable chest image was obtained 01/03/2021 2:42 pm . FINDINGS: Chronic interstitial opacification is present matching comparison. Heart size and vasculat ure are similar to comparison study when adjusting for AP versus PA technique. No measurable pleural effusion and no pneumothorax. No acute bony abnormality seen. No acute aortic findings suspected. IMPRESSION: No acute cardiopulmonary process. No significant change from comparison.
--- NOTE | 2021-01-03 15:32 | ER ---
Nurse's Notes [facility] Name: Shanell Cisse Age: 80 yrs Sex: Female : 1940 Arrival Date: 01/03/2021 Time: 13:47 Bed 3 Private MD: Diagnosis: Altered mental status. Intracranial hemorrhage Presentation: 01/03 13:51 Chief complaint: EMS states: Pt. arrives unresponsive and does not respond to pain. jt3 Last known normal was at 12pm. Pt. is maintaining airway currently. Pt. arrives from Assisted Living facility. Only known hx is a stroke a year ago. Per EMS, the patient is normally alert and oriented x4 and ambulatory. Coronavirus screen: Vaccine status: Patient reports being unvaccinated. Ebola Screen: Patient negative for fever greater than or equal to 101.5 degrees Fahrenheit, and additional compatible Ebola Virus Disease symptoms Patient denies exposure to infectious person. Patient denies travel to an Ebola-affected area in the 21 days before illness onset. Initial Sepsis Screen: Does the patient meet any 2 criteria? No. Patient's initial sepsis screen is negative. Does the patient have a suspected source of infection? No. Patient's initial sepsis screen is negative. Risk Assessment: Do you want to hurt yourself or someone else? Unable to obtain. Onset of symptoms was January 03, 2021 at 12:00. 13:51 Method Of Arrival: EMS: [facility] jt3 13:51 Acuity: CHRISTIANO 2 jt3 Triage Assessment: 13:57 General: Appears well groomed, Behavior is unresponsive. Pain: Unable to use pain jt3 scale. Patient is unresponsive. Historical: - Allergies: 13:57 No Known Allergies; ll1 13:57 No Known Allergies; jt3 - PMHx: 13:57 Hypertension; stroke; ll1 - Immunization history:: Adult Immunizations unknown. - Social history:: Smoking status: unknown. Screenin:59 Abuse screen: Denies threats or abuse. Denies injuries from another. Nutritional jt3 screening: No deficits noted. Tuberculosis screening: No symptoms or risk factors identified. Fall Risk Fall in past 12 months (25 points). Assessment: 13:59 General: Appears well groomed, Behavior is unresponsive. Neuro: Level of Consciousness jt3 is unresponsive, Oriented to none Mason Liner are weak bilaterally Unresponsive.. Speech Unresponsive. . Facial droop on right, Pupils are non-reactive, Cardiovascular: Rhythm is sinus tachycardia. Respiratory: Respiratory pattern is snoring. 15:17 Reassessment: Dr. Wallace requesting PCC therapy (Prothrombin Complex aa5 Concentrate-anticoagulant inhibitor), checked with pharmacy and pharmacy states PCC is unavailable. Dr. Wallace was notified. . 15:18 Reassessment: daughter at bedside, states that her mother would not want to to be iw intubated and would not want further intervention, is requesting to speak to Dr. Goldsmith. Dr. Wallace notified. 16:20 Reassessment: Platelets: Start Time: 1620, End Time: 1635 Dr. Wallace ordered emergency use jt3 of 1 unit of platelets and 1 unit of plasma. sql programmer analyst Ashwini witnessed each unit and order. . 17:27 Reassessment: Patient is still A\T\Ox0. Pt. is unresponsive and not responding to painful jt3 stimuli. GCS of 3. . 17:35 Reassessment: Fresh Frozen Plasma: Start Time: 1700, End Time: 1730. jt3 17:36 Reassessment: Patient is alert and oriented x0. Pt. does not respond to painful jt3 stimuli. Pupils are non-reactive. . Vital Signs: 13:51 BP 169 / 113; Pulse 111; Resp 17; Temp 97.8(TE); Pulse Ox 95% on R/A; jt3 14:07 BP 158 / 123; Pulse 113; Resp 20; Pulse Ox 99% ; ll1 15:02 BP 128 / 110; Pulse 88; Resp 16; Pulse Ox 95% on 2 lpm NC; jt3 15:11 Weight 65.77 kg; aa5 16:00 BP 155 / 106; Pulse 97; Resp 26; Pulse Ox 100% on 2 lpm NC; jt3 16:20 BP 155 / 106; Pulse 97; Resp 26; Temp 97; Pulse Ox 100% on R/A; jt3 16:35 BP 143 / 97; Pulse 100; Resp 30; Temp 97; Pulse Ox 99% on 2 lpm NC; jt3 17:00 BP 143 / 105; Pulse 99; Resp 29; Temp 96.5; Pulse Ox 97% on 2 lpm NC; jt3 17:15 BP 143 / 97; Pulse 96; Resp 30; Temp 96.5; Pulse Ox 97% on 2 lpm NC; jt3 17:30 BP 148 / 107; Pulse 105; Resp 33; Temp 96.5; Pulse Ox 94% on 2 lpm NC; jt3 17:39 BP 160 / 115; Pulse 98; jt3 18:58 BP 147 / 102; Pulse 96; Resp 25; Pulse Ox 98% on R/A; jt3 ED Course: 13:47 Patient arrived in ED. iw 13:47 Riki Wallace MD is Attending Physician. pkl 13:51 Maycol Mcgee, CLAUDE is Primary Nurse. jt3 13:55 Faulkner cath inserted, using sterile technique, 16 Fr., by pa, balloon inflated, to ll1 gravity drainage, urine specimen collected. 13:57 Triage completed. jt3 13:57 Arm band placed on Patient placed in an exam room, on a stretcher. ll1 13:57 Inserted saline lock: 20 gauge in left antecubital area, using aseptic technique. Blood ll1 collected. 13:59 Patient has correct armband on for positive identification. Bed in low position. Call jt3 light in reach. Side rails up X2. 13:59 No provider procedures requiring assistance completed. Maintain EMS IV. Dressing jt3 intact. Good blood return noted. Site clean \T\ dry. Gauge \T\ site: 20G. 14:03 CT Stroke Brain w/o Contrast In Process Unspecified. EDMS 14:42 Stroke CXR 1 View In Process Unspecified. EDMS 14:49 initiated transfer to [facility]. bd 15:30 Kenrick Goldsmith MD is Hospitalizing Provider. pkl 15:[address] Wallace. bd 16:11 Type and Screen Sent. jt3 20:57 Patient admitted, IV remains in place. df1 Administered Medications: 14:28 Drug: Labetalol 10 mg Route: IVP; Infused Over: 2 mins; Site: left antecubital; jt3 17:38 Follow up: Response: No adverse reaction jt3 15:29 CANCELLED (incorrect patientt): Cipro (ciprofloxacin) 500 mg PO once ll1 16:11 Drug: Mannitol 20% 1 g/kg Volume: 500 ml; Route: IV; Rate: calculated rate; Site: left jt3 antecubital; 17:38 Follow up: Response: No adverse reaction; IV Status: Completed infusion; IV Intake: jt3 335ml Intake: 17:38 IV: 335ml; Total: 335ml. jt3 Outcome: 15:31 Decision to Hospitalize by Provider. pkl 19:13 Admitted to Med/surg Report called to Spoke to Shelly she stated that none of the tw5 nurses have received their assignments yet, and to call back in a few min to give report. 20:57 Condition: unchanged df1 20:58 Patient left the ED. df1 Signatures: Dispatcher [employer] EDKirsten Garcia Pin, MD MD pkl Williams, Irene, RN RN iw Keyona Hughes RN RN aa5 Jody Leone RN RN ll1 Radha Martinez df1 Sandrine Emmanuel 5 Maycol Mcgee RN RN jt3
--- NOTE | 2021-01-03 15:32 | EDPHYS ---
Physician Documentation [facility] Name: Shanell Cisse Age: 80 yrs Sex: Female : 1940 Arrival Date: 01/03/2021 Time: 13:47 Bed 3 Private MD: ED Physician Riki Wallace HPI: 01/03 14:00 This 80 yrs old Female presents to ER via EMS with unknown complaint. pkl 14:00 The patient presents with decreased responsiveness. Onset: The symptoms/episode pkl began/occurred just prior to arrival, 2 hour(s) ago. Historical: - Allergies: 13:57 No Known Allergies; ll1 13:57 No Known Allergies; jt3 - PMHx: 13:57 Hypertension; stroke; ll1 - Immunization history:: Adult Immunizations unknown. - Social history:: Smoking status: unknown. ROS: 14:01 Eyes: Negative for injury, pain, redness, and discharge, ENT: Negative for injury, pkl pain, and discharge, Neck: Negative for injury, pain, and swelling, Cardiovascular: Negative for chest pain, palpitations, and edema, Respiratory: Negative for shortness of breath, cough, wheezing, and pleuritic chest pain, Abdomen/GI: Negative for abdominal pain, nausea, vomiting, diarrhea, and constipation, Back: Negative for injury and pain, : Negative for injury, bleeding, discharge, and swelling, MS/Extremity: Negative for injury and deformity, Skin: Negative for injury, rash, and discoloration. 14:01 Neuro: Positive for altered mental status, loss of consciousness. Exam: 14:01 Head/Face: Normocephalic, atraumatic. Eyes: Pupils equal round and reactive to light, pkl extra-ocular motions intact. Lids and lashes normal. Conjunctiva and sclera are non-icteric and not injected. Cornea within normal limits. Periorbital areas with no swelling, redness, or edema. ENT: Nares patent. No nasal discharge, no septal abnormalities noted. Tympanic membranes are normal and external auditory canals are clear. Oropharynx with no redness, swelling, or masses, exudates, or evidence of obstruction, uvula midline. Mucous membranes moist. Neck: Trachea midline, no thyromegaly or masses palpated, and no cervical lymphadenopathy. Supple, full range of motion without nuchal rigidity, or vertebral point tenderness. No Meningismus. Chest/axilla: Normal chest wall appearance and motion. Nontender with no deformity. No lesions are appreciated. Cardiovascular: Regular rate and rhythm with a normal S1 and S2. No gallops, murmurs, or rubs. Normal PMI, no JVD. No pulse deficits. Respiratory: Lungs have equal breath sounds bilaterally, clear to auscultation and percussion. No rales, rhonchi or wheezes noted. No increased work of breathing, no retractions or nasal flaring. Abdomen/GI: Soft, non-tender, with normal bowel sounds. No distension or tympany. No guarding or rebound. No evidence of tenderness throughout. Back: No spinal tenderness. No costovertebral tenderness. Full range of motion. Skin: Warm, dry with normal turgor. Normal color with no rashes, no lesions, and no evidence of cellulitis. MS/ Extremity: Pulses equal, no cyanosis. Neurovascular intact. Full, normal range of motion. 14:01 Neuro: Orientation: unable to test, the patient is comatose, Mentation: unable to test, the patient is comatose, Cranial nerves: unable to test, the patient is comatose, Cerebellar function: unable to test, the patient is comatose, Motor: Strength is 2/5 in the left upper and lower extremities, Strength is 1/5 in the right upper and lower extremities. Vital Signs: 13:51 BP 169 / 113; Pulse 111; Resp 17; Temp 97.8(TE); Pulse Ox 95% on R/A; jt3 14:07 BP 158 / 123; Pulse 113; Resp 20; Pulse Ox 99% ; ll1 15:02 BP 128 / 110; Pulse 88; Resp 16; Pulse Ox 95% on 2 lpm NC; jt3 15:11 Weight 65.77 kg; aa5 16:00 BP 155 / 106; Pulse 97; Resp 26; Pulse Ox 100% on 2 lpm NC; jt3 16:20 BP 155 / 106; Pulse 97; Resp 26; Temp 97; Pulse Ox 100% on R/A; jt3 16:35 BP 143 / 97; Pulse 100; Resp 30; Temp 97; Pulse Ox 99% on 2 lpm NC; jt3 17:00 BP 143 / 105; Pulse 99; Resp 29; Temp 96.5; Pulse Ox 97% on 2 lpm NC; jt3 17:15 BP 143 / 97; Pulse 96; Resp 30; Temp 96.5; Pulse Ox 97% on 2 lpm NC; jt3 17:30 BP 148 / 107; Pulse 105; Resp 33; Temp 96.5; Pulse Ox 94% on 2 lpm NC; jt3 17:39 BP 160 / 115; Pulse 98; jt3 18:58 BP 147 / 102; Pulse 96; Resp 25; Pulse Ox 98% on R/A; jt3 MDM: 13:47 Patient medically screened. pkl 14:52 Data reviewed: vital signs, nurses notes, lab test result(s), EKG, radiologic studies, pkl CT scan, plain films. 15:25 ED course: Discussed in detail the CT SCan result with daughter. Daughter does not pkl intervention done. Will sign DNR. Dr. Smith notified of admission. 01/03 13:51 Order name: Basic Metabolic Panel; Complete Time: 14:32 pkl 01/03 13:51 Order name: CBC with Diff; Complete Time: 14:21 pkl 01/03 13:51 Order name: Protime (+inr); Complete Time: 14:32 pkl 01/03 13:51 Order name: Ptt, Activated; Complete Time: 14:32 pkl 01/03 13:51 Order name: Creatinine, Serum pkl 01/03 13:54 Order name: UDS; Complete Time: 14:32 pkl 01/03 14:01 Order name: Urine Dipstick-Ancillary; Complete Time: 14:12 EDMS 01/03 14:04 Order name: COVID-19 SARS RT PCR (Document "Date of Onset" if Symptomatic) kj1 01/03 14:42 Order name: CREATININE WHOLE BLOOD; Complete Time: 14:52 EDMS 01/03 15:24 Order name: Type and Screen EDMS 01/03 15:56 Order name: FP24 Apheresis Thawed-3 EDMS 01/03 16:11 Order name: Basic Metabolic Panel EDMS 01/03 16:11 Order name: Basic Metabolic Panel EDMS 01/03 16:11 Order name: CBC with Automated Diff EDMS 01/03 13:51 Order name: CT Stroke Brain w/o Contrast; Complete Time: 14:23 pkl 01/03 13:51 Order name: Stroke CXR 1 View pkl 01/03 13:51 Order name: EKG; Complete Time: 13:52 pkl 01/03 13:51 Order name: Accucheck; Complete Time: 14:06 pkl 01/03 13:51 Order name: Cardiac monitoring; Complete Time: 14:06 pkl 01/03 13:51 Order name: EKG - Nurse/Tech; Complete Time: 14:06 pkl 01/03 13:51 Order name: IV Saline Lock; Complete Time: 14:06 pkl 01/03 13:51 Order name: Labs collected and sent; Complete Time: 14:06 pkl 01/03 13:51 Order name: NPO; Complete Time: 14:06 pkl 01/03 16:11 Order name: CBC with Automated Diff EDMS 01/03 18:38 Order name: ABO/RH no charge EDMS 01/03 13:51 Order name: O2 Per Protocol; Complete Time: 14:07 pkl 01/03 13:51 Order name: O2 Sat Monitoring; Complete Time: 14:07 pkl 01/03 13:51 Order name: Stroke Swallow Screen pkl Administered Medications: 14:28 Drug: Labetalol 10 mg Route: IVP; Infused Over: 2 mins; Site: left antecubital; jt3 17:38 Follow up: Response: No adverse reaction jt3 15:29 CANCELLED (incorrect patientt): Cipro (ciprofloxacin) 500 mg PO once ll1 16:11 Drug: Mannitol 20% 1 g/kg Volume: 500 ml; Route: IV; Rate: calculated rate; Site: left jt3 antecubital; 17:38 Follow up: Response: No adverse reaction; IV Status: Completed infusion; IV Intake: jt3 335ml Disposition Summary: 01/03/21 15:31 Hospitalization Ordered Hospitalization Status: Inpatient Admission pkl Provider: Kenrick Smith pkangela Condition: Critical pkl Problem: new pkl Symptoms: are unchanged pkl Bed/Room Type: Standard pkl Location: Telemetry/MedSurg (Inpatient)(01/03/21 19:08) dw Room Assignment: 215(01/03/21 19:08) dw Diagnosis - Altered mental status. Intracranial hemorrhage pkl Forms: - Medication Reconciliation Form pkl - SBAR form pkl Signatures: Dispatcher [employer] EDMarcia Alejandrana, RN RN dw Riki Wallace MD MD pkl Ashwini Montes, RN RN iw Keyona Hughes, RN RN aa5 Jody Leone RN RN ll1 Maycol Mcgee RN RN jt3 Corrections: (The following items were deleted from the chart) 14: 13:52 Head Angio+CT.RAD.BRZ ordered. EDMS EDMS 14: 13:52 Neck Angio+CT.RAD.BRZ ordered. EDMS EDMS 15: 14:51 Cipro (ciprofloxacin) 500 mg PO once ordered. pkl ll1 17:08 15:31 pkl dw 17:24 15:31 Telemetry/MedSurg (Inpatient) pkl dw 17:24 17:08 213 dw iw 17:24 17:24 iw 19:08 17:24 [facility] ER HOLD [facility] 19:08 17:24 [facility]
[2021-01-03] MEDS ORDERED: MANNITOL 20% 500 ML IV ONE (15:42)
[2021-01-03] MEDS ORDERED: NA CHLORIDE 0.9% 250 ML ONE ×2 (15:48→16:51)
[2021-01-03] MEDS: NA CHLORIDE 0.9% 1,000 ML IV SCH (17:00)
[2021-01-03] MEDS ORDERED: ONDANSETRON 4 MG/2 ML VIAL IV PRN (18:56)
[2021-01-03 23:01] VITALS: BMI 24.7
[2021-01-04] MEDS: NA CHLORIDE 0.9% 1,000 ML IV SCH ×2 (02:22→12:45)
[2021-01-04 06:00] LABS: Basophils % 0.2 % (0-1.3); Hematocrit 37.1 % (36.0-45.0); Lymphocytes % 8.1 % (15.3-44.8); MPV 9.5 fL (7.6-11.3); RBC Red Blood Cell Count 4.43 M/uL (3.86-4.86)
[2021-01-04 06:19] LABS: Potassium 5.3 mmol/L (3.5-5.1)
--- NOTE | 2021-01-04 09:13 | HP ---
Date of Admission: 01/03/2021 Chief Complaint: Unresponsiveness. History Of Present Illness: This is an 80-year-old female patient, who lives at [facility] and has caregiver, who goes to her apartment to assist her on a daily basis. As per info rmation, I have obtained by talking to patient's daughter, last time caregiver was in contact with rosibel bearermias was around 11 p.m. on Saturday, which is yesterday, January 02, 2021. After that, the patient we nt to bed and next contact caregiver had was today around noon time and when caregiver went to [facility], the patient was complaining of little nausea problem and she walked from one room to [facility] er room and then subsequently went to the bathroom on her own and when later on, caregiver checked on her in the bathroom. She found out that the patient was sitting on the toilet slumped over, unrespo nsive, and the patient was brought into the emergency room. After she was evaluated in ER, she was f ound to have intracranial hemorrhage with midline shift. The ER physician was planning to transfer h er to [place] for higher level of care including any possibility of surgical intervention and at that time, the patient's daughter informed him that she did not want any surgical intervention or any her oic measures done and ER physician contacted me and requesting admission to the hospital at our [facility]. I communicated with the patient's daughter on the telephone and also in person when I saw her t his evening. Allergies: NO KNOWN ALLERGIES. Medications: Amitriptyline 25 mg at bedtime, Eliquis 2.5 mg 2 times a day, atorvastatin 40 mg daily, carvedilol 12.5 mg 2 times a day, clonidine 0.1 mg 3 times a day if systolic blood pressure more kae n 170, folic acid 1 mg daily, furosemide 20 mg daily, levetiracetam 500 mg 2 times a day, Entresto 24 /26 mg 1 tablet by mouth 2 times a day. Review of Systems: Cardiovascular: Chronic leg swelling. MANAGER EXPRESS: As mentioned above. All other systems reviewed and negative. Past Medical History: Significant for prior history of stroke was in May of 2019, hyperthyroidism, hypertension, hyperlipidemia, chronic systolic congestive heart failure, chronic atrial fibrillation , uterine cancer in 2007 treated with hysterectomy, depression, osteoporosis. Past Surgical History: Total hysterectomy in 2007 and back surgery. Family History: Father , had hypertension and stroke. Mother , had diabetes, hypertension, end-stage renal disease. Sister had hypertension. Social History: Negative for smoking. Negative for alcohol use. Immunization History: Her first dose of COVID-19 vaccine was April 02, 2020. Second dose was on 2020. Physical Examination: Vital Signs: When she first arrived to emergency room, blood pressure 169/113, pulse 111, respirator y rate 17, temperature 97.8, oxygen saturation 95%. General: The patient is lying in bed, does not respond to any command and her breathing is abnormal with [place] breathing pattern. HEENT: Head atraumatic, normocephalic. Conjunctivae nonerythematous. Sclerae white. Mouth, no thr ush or edema noted. Ears/Nose, no mass, lesion, discharge noted. Neck: Supple. No JVD, lymph nodes, bruit, thyromegaly noted. Lungs: Bilateral good equal air entry. Clear to auscultation. No rhonchi. No rales. Heart: Normal heart sounds, no murmur or gallop. Abdomen: Soft, bowel sounds normal. No guarding, rigidity, tenderness, mass, hepatosplenomegaly, di stention, or bruit noted. Extremities: No leg edema. No calf tenderness. Skin: No rash, ulcer, cellulitis. Lymphatics: No lymph node enlargement in neck, supraclavicular, infraclavicular region. Neuro: Pupils 2 mm in size bilateral equal. The patient does not respond to any verbal stimuli, tac tile stimuli, or any painful stimuli except some movement of her feet and lower legs, which is very m inimal with painful stimuli applied to anterior leg. No response to painful stimuli to upper extremi ty. Chest: Unremarkable. External Genitalia: Deferred. Rectal: Deferred. Laboratory Data: White count 9.2, hemoglobin 11.9, platelets 227. INR 0.96. Sodium 137, potassium 4.2, chloride 104, bicarb 26, BUN 26, creatinine 1.26, glucose 184. Urinalysis, nitrite positive, le ukocyte esterase trace. Urine toxicology screen negative. COVID-19 test negative. Chest x-ray, no acute changes. CAT scan of the head without contrast shows 4.5 x 2.9 cm area of intraparenchymal hem atoma in left basal ganglia and left frontal lobe with intraventricular hemorrhage with obstructive h ydrocephalus and 8 mm left to right midline shift. Impression: 1.Acute intracerebral and intraventricular hemorrhage causing hemorrhaging stroke with midline shift . 2.Urinary tract infection. 3.Hypertension. 4.Hyperlipidemia. 5.Chronic atrial fibrillation. 6.Chronic systolic congestive heart failure. 7.Anemia, unspecified. 8.Depression. 9.Osteoporosis. Plan: We will admit the patient to hospital for further evaluation and management of this problem. The patient is appropriate for inpatient and is expected to spend 2 midnights in hospital. I did com municate with the patient's daughter on the phone and also at bedside when I saw her this evening and the patient's daughter has informed me that she does not want any surgical intervention for the miguel ent and she does not want us to transfer her to [place]. She wants us to keep her here at our [facility] and conservative comfort care was requested. I did communicate with her regarding advance directi ve and in the event of cardiopulmonary arrest, she does not want us to provide any CPR, defibrillatio n, or ventilator support, so DNR order was written in the chart. We also talked about treatment with medications to reduce cerebral edema and anticonvulsants medication, antibiotic, etc., but her progn osis is very poor. Date is expected in the near future within 24-48 hours and daughter has requested no treatment to be given except comfort care only and we specifically did talk about any treatment f or cerebral edema, midline shift infection, etc. So we will not provide any such treatment and provi de comfort care measures only. The patient is on oxygen. We will continue that. We will go ahead a nd order nausea medicine, keep head and chest elevated at 45-degree, provide oropharyngeal suction as needed. All the details were discussed with the patient's daughter. All of her questions were answe red. LILLI/MODL Voice ID: [id number]
[2021-01-04 13:07] VITALS: BP 120/91; TEMP 97.7
[2021-01-04] MEDS ORDERED: SCOPOLAMINE HYDROBROMIDE PATCH TD ONE (15:15)
[2021-01-04 21:19] VITALS: O2SAT 93
--- NOTE | 2021-01-06 05:03 | DS ---
Date of Discharge: 01/04/2021 Disposition: The patient today. Physical Examination: When I evaluated, her daughter was at bedside. The patient was unresponsive with [place] breat tree with significant periods of apnea. It does not respond to painful stimuli. HEENT: Examination unremarkable. Lungs: Bilateral crackles noted, scattered in all the lung reid. Heart: Sounds normal. Abdomen: Soft, bowel sounds normal. Extremities: No leg edema. Laboratory Data: Yesterday white count 9.2, hemoglobin 11.9, platelets 227. Today, white count 11.9 , hemoglobin 11.8, platelets 261. Yesterday, sodium 137, potassium 4.2, chloride 104, bicarb 26, BUN 26, creatinine 1.26. Today, sodium 137, potassium 5.3, chloride 105, bicarb 20, BUN 35, creatinine 2, glucose 159. Final Diagnoses: 1.Hemorrhagic stroke. 2.Acute kidney injury. 3.Hyperkalemia. 4.Anemia. 5.Chronic anticoagulation therapy. 6.Paroxysmal atrial fibrillation. 7.Chronic systolic congestive heart failure. Hospital Course: An 80-year-old female patient who lives at [facility], was brought into the emerg ency room when she was found sitting on the toilet seat unresponsive. Please see dictated H and P fo r more information. After patient was evaluated in the emergency room, she was diagnosed as having s ignificantly large area of intracerebral and intraventricular hemorrhage with left midline shift from left to right side of about 8 mm. The patient was also noted to have obstructive hydrocephalus. Al l these findings were discussed with the patient's daughter and requested not to be transferred to [facility]. She did not want to consider any kind of surgical intervention and requested conservative purnima atment and comfort care only. DNR order was written in the chart per my discussion with her. After the patient was admitted to the hospital, she remained on nasal cannula oxygen. The patient never re gained consciousness. She continued to remain unresponsive and ever since the time of admission, whe n I saw her, she was having [place] breathing. All the details were discussed with the patient 's daughter. was expected in 24 to 48 hours and the patient today. LILLI/MODL Voice ID: [id number] Report ID: [id number]
--- NOTE | 2021-01-06 20:46 | EKG ---
Test Date: 2021-01-03 Test Time: 13:49:00 Arc Trimmer: JOSEPH MEASUREMENT RESULTS: Intervals: Rate: 102 CO: QRSD: 100 QT: 384 QTc: 500 [place]: P: CO: QRS: -41 T: 41 INTERPRETIVE STATEMENTS: Atrial fibrillation with rapid ventricular response Left axis deviation Anteroseptal infarct, age undetermined Abnormal ECG Compared to ECG 06/25/2019 08:49:45 Left-axis deviation now present Myocardial infarct finding now present Sinus rhythm no longer present Left bundle-branch block no longer present Left ventricular hypertrophy no longer present Early repolarization no longer present Electronically Signed On 01-06-21 20:36:09 CHICKEN STUFFER by Blayne Hammer
== END 2021-01-04 15:05 | disposition expired | DRG 64 ==
LOC: ER 13:39 → ERHOLD 16:06 → 2ND 20:05
PROVIDERS: ADMIT Internal Medicine; ATTEND Internal Medicine
PROC: 30233L1 Transfusion of Nonautologous Fresh Plasma into Peripheral Vein, Percutaneous Approach (ICD-10-PCS; principal; 2021-01-03)
PROC: 30233R1 Transfusion of Nonautologous Platelets into Peripheral Vein, Percutaneous Approach (ICD-10-PCS; 2021-01-03)
DX: I62.9 Nontraumatic intracranial hemorrhage, unspecified (principal); G93.6 Cerebral edema; I50.22 Chronic systolic (congestive) heart failure; I48.20 Chronic atrial fibrillation, unspecified; N39.0 Urinary tract infection, site not specified; G91.1 Obstructive hydrocephalus; I11.0 Hypertensive heart disease with heart failure; D64.9 Anemia, unspecified; F32.A Depression, unspecified; M81.0 Age-related osteoporosis without current pathological fracture; E78.5 Hyperlipidemia, unspecified; Z66 Do not resuscitate; Z79.899 Other long term (current) drug therapy; Z86.73 Personal history of transient ischemic attack (TIA), and cerebral infarction without residual deficits; Z85.42 Personal history of malignant neoplasm of other parts of uterus; Z90.710 Acquired absence of both cervix and uterus; Z20.822 Contact with and (suspected) exposure to COVID-19
CPT/HCPCS: 36415; 51702; 70450; 71045; 80048; 80307; 81003; 82565; 85025; 85610; 85730; 86850; 86900; 86901; 86927; 93005; 96365; 96375; 99285; J7030; J7050; P9017; P9035; U0003